=== PATIENT | male | born 1955 | race Caucasian/White ===

== ENCOUNTER 2020-10-02 22:29 | Emergency (ER) | payer OTHER, MEDICARE, SELFPAY ==
[2020-10-02 22:56] VITALS: BP 122/60; PULSE 59; RESP 24; TEMP 36.6; O2SAT 98
--- NOTE | 2020-10-02 23:25 | ED_ITS ---
HPI - Abdominal Pain General: Chief Complaint: Abdominal Pain Stated Complaint: ABDOMINAL PAIN Time Seen by Provider: 10/02/20 23:06 Source: patient Mode of arrival: ambulatory Limitations: no limitations History of Present Illness: HPI narrative: 64-year-old male states he did have abdominal pain of the last day. Patient states that the pain is sharp and worsened. He states he had difficulty urinating as well. Last time he urinated was this morning. He states his pain is current a 9 out of 10. He denies any worsening improving factors. Denies any fevers. Denies any vomiting or diarrhea. Denies chest pain. Associated Symptoms: Denies chills and fever(s) Review of Systems Const: Denies: fever(s), chills, body aches or change in appetite Eyes: Denies: blurry vision or eye discomfort ENMT: Denies: throat pain or dental pain Card: Denies: chest pain Resp: Denies: dyspnea GI: Reports: abdominal pain : Reports: difficulty urinating Musc: Denies: neck pain or back pain Skin/Breast: Denies: rash Neuro: Denies: headache(s) Psych: Denies: depression Jaime/Lymph: Denies: easy bruising All/Imm: Denies: urticaria Physical Exam Const: COMMON NORMALS: no acute distress, patient oriented x3 and healthy appearing HENMT: COMMON NORMALS: normocephalic and atraumatic HEAD & SCALP: normocephalic and atraumatic Eye: COMMON NORMALS: Equal, round and reactive pupils present and EOMs intact bilaterally PUPIL: Yes Equal, round and reactive pupils present Neck/C-Spine: COMMON NORMALS: full ROM and supple Chest: COMMONS NORMALS: normal inspection of the chest and normal palpation of entire chest wall Resp: COMMON NORMALS: normal respiratory effort, No retractions, No use of accessory muscles and clear to auscultation bilaterally AUSCULTATION: clear to auscultation bilaterally Cardio: COMMON NORMALS: regular rate, regular rhythm and No murmurs present (Cardio) RATE: regular rate RHYTHM: regular rhythm GI: COMMON NORMALS: Normal to inspection, nondistended, normoactive bowel sounds present, Soft to palpation and no masses PALPATION: Yes Soft to palpation OTHER: lower abdominal tenderness Extremity: COMMON NORMALS: normal to inspection and full ROM Neuro: COMMON NORMALS: patient oriented x3, moves all extremities and no focal motor deficits Psych: COMMON NORMALS: mental status grossly normal, Normal thought process present and cooperative THOUGHT PROCESS: Normal thought process present Skin: COMMON NORMALS: no rashes or lesions noted and no wounds GENERAL SKIN EXAM: no rashes or lesions noted Course Vital Signs: Vital signs: Vital Signs Temperature 97.9 F 10/02/20 22:56 Pulse Rate 67 10/03/20 02:41 Respiratory Rate 18 10/03/20 02:41 Blood Pressure 145/80 10/03/20 02:41 Pulse Oximetry 99 10/03/20 02:41 MDM - Abdominal Pain MDM Narrative: Medical decision making narrative: Patient presents here with abdominal pain. Julian was placed and had 800 out he does have urinary retention. CT also showed some constipation and a colitis. Will start patient on antibiotics and leave Julian in place. We will have him follow-up with urology and surgery as he likely needs a colonoscopy in the future. He is to return to ER if worsening. He understands agrees to plan. Lab Data: Labs: Lab Results 10/03/20 10/03/20 10/03/20 Range/Units 00:00 00:00 Unknown WBC 8.1 (4.0-10.0) 10^3/ uL RBC 4.15 (4.1-5.3) 10^6/u L Hgb 12.7 (11.7-16.6) g/dL Hct 38.8 L (42.0-52.0) % MCV 93.5 (80-94) fL MCH 30.6 (28.0-34.0) pg MCHC 32.7 (30.0-36.0) g/dL RDW 14.6 (12.1-15.1) % Plt Count 63 L (130-400) 10^3/c mm MPV 11.8 H (7.4-10.4) fL Neut % (Auto) 75.9 % Lymph % (Auto) 10.6 % [place] % (Auto) 11.0 % Eos % (Auto) 1.7 % Baso % (Auto) 0.4 % Neut # (Auto) 6.16 (1.8-7.7) 10^3/u L Lymph # (Auto) 0.9 (0.8-4.8) 10^3/u L [place] # (Auto) 0.9 (0.2-0.9) 10^3/u L Eos # (Auto) 0.1 (0.0-0.8) 10^3/u L Baso # (Auto) 0.0 (0.0-0.1) 10^3/u L Nucleated RBC % (a uto) 0 % Nucleated RBCs # 0.0 /100WBC Sodium 137 (136-145) mmol/L Potassium 4.3 (3.5-5.1) mmol/L Chloride 105 (98-107) mmol/L Carbon Dioxide 24 (22-29) mmol/L Anion Gap 12.3 (5-19) BUN 25 H (8-23) mg/dL Creatinine 1.1 (0.7-1.2) mg/dL GFR Calculation 67.2 L (90-130) mL/min Glucose 101 (65-115) mg/dL Calculated Osmolal ity 289 (285-295) mOsm/k g Calcium 9.4 (8.5-10.5) mg/dL Total Bilirubin 0.4 (0.15-1.2) mg/dL AST 31 (0-40) U/L ALT 24 (0-41) U/L Alkaline Phosphata se 104 (40-130) IU/L Total Protein 6.7 (6.6-8.7) g/dL Albumin 3.9 (3.5-5.2) g/dL Globulin 2.8 (1.3-4.6) g/dL Lipase 24 (13-60) U/L Urine Color Yellow (Yellow) Urine Appearance Clear (CLEAR) Urine pH 5 (5-7) Ur Specific Gravit y 1.020 (1.005-1.030) Urine Protein Neg (Negative) Urine Glucose (UA) Norm (Normal) Urine Ketones Negative (Negative) Urine Blood Neg (Negative) Urine Nitrate Negative (Negative) Urine Bilirubin Neg (Negative) Urine Urobilinogen Norm (Negative) mg/dL Ur Leukocyte Jaclyn ase Negative (Negative) Imaging Data ^: CT Abd/Pel: Radiologist's impression: [address] [place] [address] CT Scan Report Signed Patient: Gee Dobson Unit #: [id number] : 1955 Age/Sex: 64 / M ADM Date: 10/02/20 Loc: ER Room/Bed: Attending Dr: Ordering Provider/Ordering MD: Angelica Medina MD Date of Service: 10/03/20 Procedure(s): CT abdomen pelvis w con* [id number] Accession Number(s): [id number] Report Number: [id number] PROCEDURE INFORMATION: Exam: CT Abdomen And Pelvis With Contrast Exam date and time: 10/03/2020 12:19 AM Age: 64 years old Clinical indication: Abdominal pain; Generalized; Prior surgery; Surgery type: Gb; Patient HX: Abd pain TECHNIQUE: Imaging protocol: Computed tomography of the abdomen and pelvis with contrast. Radiation optimization: All CT scans at this facility use at least one of these dose optimization techniques: automated exposure control; mA and/or kV adjustment per patient size (includes targeted exams where dose is matched to clinical indication); or iterative reconstruction. Contrast material: OMNI 300; Contrast volume: 95 ml; Contrast route: INTRAVENOUS (IV); COMPARISON: CR Abdomen Series Acute [id number] 04/13/2015 12:03 AM RADIATION DOSE METRICS: Total DLP (mGy-cm): 856.25 FINDINGS: Liver: There is a nodular contour of the liver compatible with cirrhosis. Gallbladder and bile ducts: Status post cholecystectomy. Pancreas: Normal. No ductal dilation. Spleen: The spleen is mildly prominent measuring 15.1 cm craniocaudal dimension. Adrenal glands: Normal. No mass. Kidneys and ureters: Normal. No hydronephrosis. Stomach and bowel: Moderate stool is present within the colon. There is prominent bowel wall thickening seen within the hepatic flexure of the colon. This could represent focal colitis. However a circumferential mural mass cannot be excluded. Appendix: No evidence of appendicitis. Intraperitoneal space: Unremarkable. No free air. No significant fluid collection. Vasculature: Unremarkable. No abdominal aortic aneurysm. Lymph nodes: Unremarkable. No enlarged lymph nodes. Urinary bladder: Unremarkable as visualized. Reproductive: Unremarkable as visualized. Bones/joints: Severe loss of disc height is seen at L5-S1 compatible with degenerative disc disease. Soft tissues: Unremarkable. CT/CT abdomen pelvis w con* [id number] IMPRESSION: 1. Focal prominent bowel wall thickening seen within the hepatic flexure of the colon, findings that could represent inflammatory changes and colitis although a mural mass cannot be excluded. 2. Moderate stool seen in the remainder of the colon. 3. Nodular profile of the liver compatible with cirrhosis. 4. Mild splenomegaly. Radiation Dose CTDIVOL = (mGy): DLP = 856.25 (mGy-cm) Dictated By: Devan More MD Signed By: Devan More MD Signed Date/Time: 10/03/20211 Discharge Plan Discharge Patient Disposition: Home Clinical Impression: Acute urinary retention, Colitis Condition: Stable Prescriptions: New hydrocodone-acetaminophen 5-325 mg tablet 1 tab PO Q6H PRN (Reason: pain) Qty: 14 RF: 0 ondansetron 4 mg tablet,disintegrating 4 mg PO Q6H PRN (Reason: nausea and vomiting) Qty: 14 RF: 0 Augmentin 875-125 mg tablet 1 tab PO BID Qty: 14 RF: 0 Miralax 17 gram/dose powder 17 g PO DAILY PRN (Reason: constipation) Qty: 119 RF: 0 Discharge Orders: Discharge ED (Routine); Ordered 10/03/20 Ordered By: Angelica Medina Referrals: Lokesh Jimenez, CIRCUIT DESIGN ENGINEER-C [Primary Care Provider] - Ho Montalvo MD [Physician] - 1-3 days Lupillo Olivares MD [Physician] - 1-3 days Discharge Diet: Advance as tolerated Discharge Activity: Resume usual activity Patient Instructions: Urinary Retention in Men (ED), Infectious Colitis (ED), Opioid Safety Coding Level of Care Code ED Cardiac Catheterization Technologist for Chg Fwd Exam Comprehensive
[2020-10-03 00:19] LABS: Basophils % 0.4 %; Eosinophils # 0.1 10^3/uL (0.0-0.8); Eosinophils % 1.7 %; Hematocrit 38.8 % (42.0-52.0); Hemoglobin 12.7 g/dL (11.7-16.6); Lymphocytes # 0.9 10^3/uL (0.8-4.8); Lymphocytes % 10.6 %; Mean Corpuscular HGB Conc 32.7 g/dL (30.0-36.0); Mean Corpuscular Hemoglobin 30.6 pg (28.0-34.0); Mean Corpuscular Volume 93.5 fL (80-94); Mean Platelet Volume 11.8 fL (7.4-10.4); Monocytes # 0.9 10^3/uL (0.2-0.9); Neutrophils # 6.16 10^3/uL (1.8-7.7); Neutrophils % 75.9 %; Nucleated Red Blood Cells % 0 %; Platelet Count 63 10^3/cmm (130-400); Red Blood Count 4.15 10^6/uL (4.1-5.3); Red Cell Distribution Width 14.6 % (12.1-15.1); White Blood Count 8.1 10^3/uL (4.0-10.0)
--- NOTE | 2020-10-03 00:19 | CTR_ITS ---
PROCEDURE INFORMATION: Exam: CT Abdomen And Pelvis With Contrast Exam date and time: 10/03/2020 12:19 AM Age: 64 years old Clinical indication: Abdominal pain; Generalized; Prior surgery; Surgery type: Gb; Patient HX: Abd pain TECHNIQUE: Imaging protocol: Computed tomography of the abdomen and pelvis with contrast. Radiation optimization: All CT scans at this facility use at least one of these dose optimization techniques: automated exposure control; mA and/or kV adjustment per patient size (includes targeted exams where dose is matched to clinical indication); or iterative reconstruction. Contrast material: OMNI 300; Contrast volume: 95 ml; Contrast route: INTRAVENOUS (IV); COMPARISON: CR Abdomen Series Acute [id number] 04/13/2015 12:03 AM RADIATION DOSE METRICS: Total DLP (mGy-cm): 856.25 FINDINGS: Liver: There is a nodular contour of the liver compatible with cirrhosis. Gallbladder and bile ducts: Status post cholecystectomy. Pancreas: Normal. No ductal dilation. Spleen: The spleen is mildly prominent measuring 15.1 cm craniocaudal dimension. Adrenal glands: Normal. No mass. Kidneys and ureters: Normal. No hydronephrosis. Stomach and bowel: Moderate stool is present within the colon. There is prominent bowel wall thickening seen within the hepatic flexure of the colon. This could represent focal colitis. However a circumferential mural mass cannot be excluded. Appendix: No evidence of appendicitis. Intraperitoneal space: Unremarkable. No free air. No significant fluid collection. Vasculature: Unremarkable. No abdominal aortic aneurysm. Lymph nodes: Unremarkable. No enlarged lymph nodes. Urinary bladder: Unremarkable as visualized. Reproductive: Unremarkable as visualized. Bones/joints: Severe loss of disc height is seen at L5-S1 compatible with degenerative disc disease. Soft tissues: Unremarkable. CT/CT abdomen pelvis w con* [id number] IMPRESSION: 1. Focal prominent bowel wall thickening seen within the hepatic flexure of the colon, findings that could represent inflammatory changes and colitis although a mural mass cannot be excluded. 2. Moderate stool seen in the remainder of the colon. 3. Nodular profile of the liver compatible with cirrhosis. 4. Mild splenomegaly. Radiation Dose CTDIVOL = (mGy): DLP = 856.25 (mGy-cm)
[2020-10-03 00:35] LABS: Alanine Aminotransferase 24 U/L (0-41); Albumin Level 3.9 g/dL (3.5-5.2); Alkaline Phosphatase 104 IU/L (40-130); Aspartate Amino Transferase 31 U/L (0-40); Blood Urea Nitrogen 25 mg/dL (8-23); Calcium 9.4 mg/dL (8.5-10.5); Carbon Dioxide 24 mmol/L (22-29); Chloride 105 mmol/L (98-107); Globulin 2.8 g/dL (1.3-4.6); Glomerular Filtration Rate 67.2 mL/min (90-130); Glucose 101 mg/dL (65-115); Lipase 24 U/L (13-60); Osmolality Calculated 289 mOsm/kg (285-295); Sodium 137 mmol/L (136-145); Total Bilirubin 0.4 mg/dL (0.15-1.2); Total Protein 6.7 g/dL (6.6-8.7)
[2020-10-03 00:39] LABS: Anion Gap 12.3 (5-19); Potassium 4.3 mmol/L (3.5-5.1)
[2020-10-03 00:46] LABS: Add Urine Microscopic? NO; Charge for UA Resulting for Rev
[2020-10-03] MEDS: iohexol 300 mg/mL 100 mL Btl IV (00:52)
[2020-10-03 00:57] VITALS: RESP 16; O2SAT 100
[2020-10-03] MEDS: morphine 4 mg/mL SDV 1 mL IVP (00:57)
[2020-10-03] MEDS: ondansetron 2 mg/ML SDV 2 mL 4 MG IVP (00:59)
[2020-10-03 01:03] VITALS: BP 152/119; PULSE 71; RESP 18; O2SAT 99
[2020-10-03 01:07] LABS: Bilirubin Urine Neg (Negative); Blood Urine Neg (Negative); Glucose Urine UA Norm (Normal); Ketones Urine Negative (Negative); Leukocyte Esterase Urine Negative (Negative); Nitrate Urine Negative (Negative); Protein Urine Neg (Negative); Urine Appearance Clear (CLEAR); Urine Color Yellow (Yellow); Urobilinogen Urine Norm (Negative); pH Urine 5 (5-7)
[2020-10-03 02:23] VITALS: BP 145/80; PULSE 65; O2SAT 99
[2020-10-03 02:41] VITALS: BP 145/80; PULSE 67; RESP 18; O2SAT 99
--- NOTE | 2020-10-05 10:59 | DCPLANNER ---
Addendum entered by Amber Hernandez 10/05/20 11:26: senior sales manager sent patients information to June with [facility] so that the authorization process could be started. Original Note: senior sales manager had message to schedule a follow up appointment for patient with Dr. Olivares for a colonoscopy. senior sales manager emailed patients information to both Jinny and Laisha at [facility] General Surgery. Patients information will be printed and reviewed. Clinic will call patient with appointment information.
--- NOTE | 2020-10-05 11:29 | DCPLANNER ---
manager of investigations had message to schedule a follow up appointment for patient with Dr. Montalvo for urinary retention. manager of investigations called the office of Dr. Montalvo, spoke with Amy, gave clinic patients information. manager of investigations was told that patients information would be printed and reviewed. Clinic will call patient with appointment information.
--- NOTE | 2020-10-06 13:27 | DCPLANNER ---
Patient has a follow up appointment scheduled for Monday, October 19, 2020 at 11:[address] Montalvo. Clinic will call patient with appointment information.
--- NOTE | 2020-10-09 14:20 | DCPLANNER ---
Patient has a follow up appointment scheduled for Tuesday, November 03, 2020 at 9:[address] Olivaers at [facility] General Surgery. Clinic will call patient with appointment information.
--- NOTE | 2020-10-22 08:24 | DCPLANNER ---
Patient had a follow up appointment scheduled for 10.19.[address] long - patient did attend appointment.
--- NOTE | 2020-11-13 12:47 | DCPLANNER ---
late entry - patient had a follow up appointment scheduled with general surgery - was rescheduled.
== END 2020-10-03 02:58 | disposition home or self-care (01) ==
PROVIDERS: Emergency Provider Emergency Medicine; PCP Nurse Practitioner
DX: K52.9 Noninfective gastroenteritis and colitis, unspecified (principal); R33.9 Retention of urine, unspecified
CPT/HCPCS: 51702; 74177; 80053; 81003; 83690; 85025; 96374; 96375; 99284; J2270; J2405; Q9967

== ENCOUNTER 2021-02-12 09:59 | Emergency (ER) | payer OTHER, MEDICARE, SELFPAY ==
[2021-02-12 10:48] VITALS: BP 137/74; PULSE 74; RESP 18; TEMP 36.4; O2SAT 98; BMI 23.6
--- NOTE | 2021-02-12 11:12 | CT_ITS ---
WS: [id number] CT ABDOMEN AND PELVIS WITH CONTRAST HISTORY: abdominal pain TECHNIQUE: Imaging performed of the abdomen and pelvis with IV contrast. Single phase imaging of the abdomen. Coronal and sagittal reformats are submitted. All CT scans at [facility] use at [address] one of these dose optimization techniques: automated exposure control; mA and/or kV adjustment per patient size (includes targeted exams where dose is matched to clinical indication); or iterative re construction. IV CONTRAST: Omnipaque 300; 95 mL IV. Oral contrast: No DLP: 1131.0 mGy.cm COMPARISON: 11/18/2020, 10/03/2020 Lower thorax: New small RIGHT pleural effusion since 11/18/2020. Heart is normal size. Moderate size h iatal hernia. Liver/biliary system: Enlarged caudate lobe. Surface of the liver is significantly irregular and lobu lar from cirrhosis. No enhancing masses or nodules. Portal vein is patent. Incomplete opacification o f the superior mesenteric vein is probably due to injection rate. Gallbladder: Status post cholecystectomy. Pancreas: Normal size pancreas and pancreatic duct. No adjacent inflammation. Spleen: Moderately enlarged spleen measures 15.5 cm in length. Similar to the prior study. Adrenal glands: Normal. Right kidney: Normal. Left kidney: Normal. Aorta: Mild atherosclerosis with no aneurysm. Lymphadenopathy: Small mesenteric and retroperitoneal lymph nodes. Free fluid: New mesenteric edema. There is also free fluid in the mesentery and in the pelvis. Small pockets of free fluid around the stomach and in the central mesentery extending along the paracolic g utters and in the pelvis. No free air is identified. GI tract: Moderate fecal retention. No obstruction. There is mild bowel wall thickening involving the proximal small bowel. Abdominal wall: Unremarkable abdominal wall. No hernia. Pelvis: Well-distended urinary bladder. Small amount of free fluid in the pelvis. Small inguinal lymp h nodes. Bones: Osteopenia. Disc space narrowing and desiccation at L5-S1. CT/CT abdomen pelvis w con* [id number] IMPRESSION: 1. Interval development of a small RIGHT pleural effusion with mesenteric estefani a and a small amount of free fluid in the abdomen and pelvis. 2. Moderate cirrhosis with an enlarged spleen. 3. Prior cholecystectomy. 4. Moderate constipation. 5. Proximal most small bowel wall thickening can be seen with cirrhosis and ed cuco. Consider gastroenteritis also as a possible etiology.
[2021-02-12 11:45] VITALS: BP 131/75; PULSE 75; RESP 14
[2021-02-12 11:47] LABS: Basophils % 0.6 %; Eosinophils # 0.3 10^3/uL (0.0-0.8); Eosinophils % 4.9 %; Hematocrit 38.9 % (42.0-52.0); Hemoglobin 12.8 g/dL (11.7-16.6); Lymphocytes # 0.7 10^3/uL (0.8-4.8); Lymphocytes % 12.2 %; Mean Corpuscular HGB Conc 32.9 g/dL (30.0-36.0); Mean Corpuscular Hemoglobin 31.1 pg (28.0-34.0); Mean Corpuscular Volume 94.6 fl (80-94); Mean Platelet Volume 9.9 fL (7.4-10.4); Monocytes # 0.6 10^3/uL (0.2-0.9); Monocytes % 11.7 %; Neutrophils # 3.73 10^3/uL (1.8-7.7); Nucleated Red Blood Cells % 0 %; Platelet Count 59 10^3/cmm (130-400); Red Blood Count 4.11 10^6/uL (4.1-5.3); Red Cell Distribution Width 15.8 % (12.1-15.1); White Blood Count 5.3 10^3/uL (4.0-10.0)
--- NOTE | 2021-02-12 12:03 | ED_ITS ---
HPI - Abdominal Pain General: Chief Complaint: Abdominal Pain Stated Complaint: Abdominal Pain, Swelling in Feet Time Seen by Provider: 02/12/21 11:10 History of Present Illness: HPI narrative: Patient is a 65-year-old male with a past medical history of abdominal hernia liver cirrhosis hep C status post treatment and meth amphetamine use disorder. He is here with abdominal pain. It is difficult to get a specific history and why he is here today but it seems to center on the fact that he has lower central abdominal pain. Does not radiate has not had any nausea or vomiting he does alternate between constipation and diarrhea but lately his stools have been soft and formed not runny and not hard. States that he is passing urine but seems to be less than normal. He was seen earlier for urinary retention had a Julian catheter placed and is under the care of a local urologist. Denies fevers chills chest pains nausea vomiting altered mental status shortness of breath syncope. Does states he has been having some sharp pains in his right scientology. Does have chronic headaches Review of Systems General: Reports: 10 or more systems reviewed and unremarkable except in HPI and below PFSH ED PFSH: Medical History Acute urinary retention Family History Father CAD (coronary artery disease) Social History Alcohol intake: never Marital status: Current occupational status: disabled History of recent travel: No Physical Exam Const: COMMON NORMALS: no acute distress, average body habitus, patient oriented x3, no limitations, healthy appearing and well nourished EXAM LIMITATIONS: no altered mental status and no behavioral limitations HENMT: COMMON NORMALS: normocephalic, atraumatic and hearing grossly normal bilaterally HEAD & SCALP: normocephalic and atraumatic Eye: COMMON NORMALS: Equal, round and reactive pupils present, EOMs intact bilaterally, conjunctivae normal and no scleral icterus CONJUNCTIVA: Yes conjunctivae normal PUPIL: Yes Equal, round and reactive pupils present Neck/C-Spine: COMMON NORMALS: no JVD Resp: COMMON NORMALS: normal respiratory effort, No retractions, No use of accessory muscles, clear to auscultation bilaterally and percussion normal AUSCULTATION: clear to auscultation bilaterally PERCUSSION: percussion normal Cardio: COMMON NORMALS: no JVD, regular rate, regular rhythm, S1 normal heart sound present, S2 normal heart sound present, No clicks present (Cardio) and No murmurs present (Cardio) RATE: regular rate RHYTHM: regular rhythm HEART SOUNDS: S1 normal heart sound present and S2 normal heart sound present GI: COMMON NORMALS: Normal to inspection, nondistended, normoactive bowel sounds present, Soft to palpation, No hepatosplenomegaly present and no masses; negative for non-tender INSPECTION: No normal to inspection, No Abdominal wall edema, No Anasarca and Yes abdominal distension AUSCULTATION: Yes normoactive bowel sounds PALPATION: Yes Soft to palpation, Yes Tenderness to palpation present (GI) (Mildly tender to palpation periumbilical and suprapubic) and Yes No hepatosplenomegaly present PERCUSSION: normal to percussion Extremity: COMMON NORMALS: normal to inspection, full ROM and capillary refill normal Neuro: DANIE COMA SCALE: document GCS findings Danie coma scale eye opening: Spontaneous Danie coma scale verbal response: Orientated [place] coma scale motor response: Obey commands Danie coma scale total score: 15 COMMON NORMALS: patient oriented x3 and CN's II-XII intact bilaterally Psych: COMMON NORMALS: mental status grossly normal and Normal thought process present THOUGHT PROCESS: Normal thought process present Skin: COMMON NORMALS: no rashes or lesions noted, no wounds and turgor normal GENERAL SKIN EXAM: no rashes or lesions noted and turgor normal Course ED course: Bladder scan showed he is had a residual 250. Has not urinated since early this morning this may be the cause of his discomfort but will go ahead and finish stressors work-up. If nothing else is found may go ahead and place a Julian and have him follow-up with his urologist. Patient CT showed a very small basilar pleural effusion and some fluid in small bowel most likely either mild gastritis or some ascites. Patient feels better after urinating. His labs are essentially normal. Feel there is any need for any additional work-up hospitalization or consultation at this time. Will discharge and have him follow-up with his primary care provider and urologist and return with any worsening symptoms Vital Signs: Vital signs: Vital Signs Temperature 97.6 F 02/12/21 10:48 Pulse Rate 75 02/12/21 11:45 Respiratory Rate 14 02/12/21 11:45 Blood Pressure 131/75 02/12/21 11:45 Pulse Oximetry 98 02/12/21 10:48 MDM - Abdominal Pain MDM Narrative: Medical decision making narrative: Patient is a 65-year-old male here with abdominal pain. Differential includes urinary retention, hernia, sepsis, ascites Patient is well-appearing no signs or symptoms of sepsis. Infection vital signs are normal does not need need immediate resuscitation antibiotics or airway management. Limited bedside ultrasound does not show any ascites and he had normal bowel sounds. We will get a bladder scan to see if he is retaining urine CT scan of the abdomen pelvis as well as basic labs on him. Lab Data: Labs: Lab Results 02/12/21 02/12/21 02/12/21 11:35 11:35 11:35 WBC 5.3 10^3/uL 10^3/ uL (4.0-10.0) RBC 4.11 10^6/uL 10^6 /uL (4.1-5.3) Hgb 12.8 g/dL g/dL (11.7-16.6) Hct 38.9 % L % (42.0-52.0) MCV 94.6 fl H fl (80-94) MCH 31.1 pg pg (28.0-34.0) MCHC 32.9 g/dL g/dL (30.0-36.0) RDW 15.8 % H % (12.1-15.1) Plt Count 59 10^3/cmm L 10^ 3/cmm (130-400) MPV 9.9 fL fL (7.4-10.4) Neut % (Auto) 70.0 % % Lymph % (Auto) 12.2 % % [place]ander % (Auto) 11.7 % % Eos % (Auto) 4.9 % % Baso % (Auto) 0.6 % % Neut # (Auto) 3.73 10^3/uL 10^3 /uL (1.8-7.7) Lymph # (Auto) 0.7 10^3/uL L 10^ 3/uL (0.8-4.8) Lander # (Auto) 0.6 10^3/uL 10^3/ uL (0.2-0.9) Eos # (Auto) 0.3 10^3/uL 10^3/ uL (0.0-0.8) Baso # (Auto) 0.0 10^3/uL 10^3/ uL (0.0-0.1) Nucleated RBC % (a uto) 0 % % Nucleated RBCs # 0.0 /100WBC /100W BC Sodium 137 mmol/L mmol/L (136-145) Potassium 4.3 mmol/L mmol/L (3.5-5.1) Chloride 102 mmol/L mmol/L (98-107) Carbon Dioxide 23 mmol/L mmol/L (22-29) Anion Gap 16.3 (5-19) BUN 17 mg/dL mg/dL (8-23) Creatinine 1.1 mg/dL mg/dL (0.7-1.2) GFR Calculation 67.0 mL/min L mL/ min (90-130) Glucose 80 mg/dL mg/dL (65-115) Calculated Osmolal ity 285 mOsm/kg mOsm/ kg (285-295) Lactate 0.7 mmol/L mmol/L (0.5-2.2) Calcium 8.8 mg/dL mg/dL (8.5-10.5) Magnesium 1.9 mg/dL mg/dL (1.7-2.3) Total Bilirubin 0.9 mg/dL mg/dL (0.15-1.2) AST 31 U/L U/L (0-40) ALT 21 U/L U/L (0-41) Alkaline Phosphata se 99 IU/L IU/L (40-130) Total Protein 7.5 g/dL g/dL (6.6-8.7) Albumin 4.0 g/dL g/dL (3.5-5.2) Globulin 3.5 g/dL g/dL (1.3-4.6) Lipase 25 U/L U/L (13-60) Discharge Plan Discharge Prescriptions: No Action gabapentin 300 mg capsule 600 - 900 mg PO BID RF: 0 Artificial Tears (cmc) 1 % drops 1 drp ophthalmic (eye) QID PRN (Reason: Dry Eye(S)) RF: 0 ferrous sulfate 325 mg (65 mg iron) tablet 325 mg PO DAILY PRN (Reason: unknown) RF: 0 furosemide 20 mg tablet 20 mg PO DAILY PRN (Reason: Edema) RF: 0 potassium chloride 20 mEq tablet extended release 20 meq PO DAILY RF: 0 Metamucil 3.4 gram/5.4 gram powder 1 tsp PO DAILY PRN (Reason: unknown) RF: 0 albuterol sulfate 90 mcg/actuation HFA aerosol inhaler 2 puff inhalation Q4H PRN (Reason: Shortness Of Breath) RF: 0 pantoprazole 40 mg tablet,delayed release (DR/EC) 40 mg PO QPM RF: 0 multivitamin Tablet 1 tab PO DAILY RF: 0 sildenafil 100 mg Tablet 100 mg PO PRN PRN (Reason: Erectile Dysfunction) RF: 0 trazodone 100 mg Tablet 50 mg PO BEDTIME PRN (Reason: Sleep) RF: 0 Colace 100 mg Capsule 100 mg PO BID PRN (Reason: Constipation) RF: 0 acyclovir 200 mg Capsule 200 mg PO DAILY RF: 0 Advair Diskus 100-50 mcg/dose Blister With Device 1 inh INHALATION BID RF: 0 testosterone cypionate 200 mg/mL Oil 200 mg IM Q14D RF: 0 Flonase 50 mcg/actuation [place],Suspension 1 - 2 spray INTRANASAL DAILY PRN (Reason: Allergy Symptoms) RF: 0 Vitamin D3 50 mcg (2,000 unit) Capsule 100 mcg PO PRN RF: 0 Spiriva Respimat 2.5 mcg/actuation Mist 2 puff INHALATION DAILY RF: 0 tamsulosin 0.4 mg capsule 0.4 mg PO BEDTIME RF: 0 Coding Level of Care Code ED Regional Production Manager for Chg Fwd Exam Comprehensive
[2021-02-12 12:04] LABS: Lactate (Lactic Acid level) 0.7 mmol/L (0.5-2.2)
[2021-02-12 12:10] LABS: Slide Review Slide Review Perform
--- NOTE | 2021-02-12 12:12 | PC.NURSE ---
Pts bladder scanned, 200mL noted on scan, Dr. Becerra advised. This RN noted pts lower abdomen to be hard on palpation and distended.
[2021-02-12 12:14] LABS: Alanine Aminotransferase 21 U/L (0-41); Alkaline Phosphatase 99 IU/L (40-130); Anion Gap 16.3 (5-19); Aspartate Amino Transferase 31 U/L (0-40); Blood Urea Nitrogen 17 mg/dL (8-23); Calcium 8.8 mg/dL (8.5-10.5); Carbon Dioxide 23 mmol/L (22-29); Chloride 102 mmol/L (98-107); Globulin 3.5 g/dL (1.3-4.6); Glucose 80 mg/dL (65-115); Lipase 25 U/L (13-60); Magnesium 1.9 mg/dL (1.7-2.3); Osmolality Calculated 285 mOsm/kg (285-295); Potassium 4.3 mmol/L (3.5-5.1); Sodium 137 mmol/L (136-145); Total Bilirubin 0.9 mg/dL (0.15-1.2); Total Protein 7.5 g/dL (6.6-8.7)
[2021-02-12] MEDS: iohexol 300 mg/mL 100 mL Btl IV (12:30)
--- NOTE | 2021-02-12 13:13 | PC.PHAR ---
Addendum entered by Elsie Rodriguez 02/12/21 13:18: [facility] 2 tabs bid pt states he hasnt taken for a month or so Original Note: pt and pts family verified pts medications-[facility]
[2021-02-12 14:27] VITALS: BP 124/75; PULSE 70; RESP 19; O2SAT 98
== END 2021-02-12 14:30 | disposition home or self-care (01) ==
PROVIDERS: Emergency Provider Family Medicine
DX: R10.9 Unspecified abdominal pain (principal)
CPT/HCPCS: 74177; 80053; 83605; 83690; 83735; 85025; 99283; Q9967

== ENCOUNTER 2021-03-09 20:13 | Inpatient (IN) | payer OTHER, MEDICARE, SELFPAY ==
[2021-03-09 20:37] VITALS: BP 137/75; PULSE 86; RESP 18; TEMP 37.1; O2SAT 99; BMI 22.9
[2021-03-09 21:00] LABS: Basophils % 0.8 %; Eosinophils # 0.3 10^3/uL (0.0-0.8); Eosinophils % 5.7 %; Hematocrit 30.5 % (42.0-52.0); Hemoglobin 10.1 g/dL (11.7-16.6); Mean Corpuscular HGB Conc 33.1 g/dL (30.0-36.0); Mean Corpuscular Hemoglobin 31.3 pg (28.0-34.0); Mean Corpuscular Volume 94.4 fl (80-94); Mean Platelet Volume 10.4 fL (7.4-10.4); Monocytes # 0.5 10^3/uL (0.2-0.9); Monocytes % 9.5 %; Neutrophils # 3.24 10^3/uL (1.8-7.7); Nucleated Red Blood Cells % 0 %; Platelet Count 68 10^3/cmm (130-400); Red Blood Count 3.23 10^6/uL (4.1-5.3); Red Cell Distribution Width 14.6 % (12.1-15.1); White Blood Count 5.1 10^3/uL (4.0-10.0)
[2021-03-09 22:14] VITALS: BP 127/72; PULSE 91; RESP 20; O2SAT 93
[2021-03-09 22:18] LABS: Alanine Aminotransferase 15 U/L (0-41); Albumin Level 3.5 g/dL (3.5-5.2); Alkaline Phosphatase 73 IU/L (40-130); Anion Gap 18.2 (5-19); Aspartate Amino Transferase 22 U/L (0-40); Blood Urea Nitrogen 38 mg/dL (8-23); Calcium 8.4 mg/dL (8.5-10.5); Carbon Dioxide 19 mmol/L (22-29); Chloride 107 mmol/L (98-107); Globulin 2.2 g/dL (1.3-4.6); Glucose 95 mg/dL (65-115); Lipase 28 U/L (13-60); Osmolality Calculated 299 mOsm/kg (285-295); Potassium 4.2 mmol/L (3.5-5.1); Sodium 140 mmol/L (136-145); Total Bilirubin 0.3 mg/dL (0.15-1.2); Total Protein 5.7 g/dL (6.6-8.7)
[2021-03-09 22:43] LABS: INR 1.23 (0.8-1.2)
--- NOTE | 2021-03-09 23:35 | ED_ITS ---
HPI - GI Bleed General: Chief complaint: GI Bleed Stated complaint: possible internal bleeding Time Seen by Provider: 03/09/21 22:15 Source: patient Mode of arrival: ambulatory History of Present Illness: HPI Narrative: 65-year-old male who states that he has a history of upper GI bleed along with cirrhosis and varices. He states that over the last day has been having some dark tarry stools that he believes is blood in nature. He states that he has some slight weakness blood pressure here is normal denies any near syncopal or syncopal patient blood thinners denies any worsening improving factors. Associated symptoms: Denies chills, easy bruising, fever(s), headache(s) or rash Review of Systems Const: Denies: fever(s), chills, body aches or change in appetite Eyes: Denies: blurry vision or eye discomfort ENMT: Denies: throat pain or dental pain Card: Denies: chest pain Resp: Denies: dyspnea GI: Reports: hematochezia and melena : Denies: dysuria Musc: Denies: neck pain or back pain Skin/Breast: Denies: rash Neuro: Denies: headache(s) Psych: Denies: depression Jaime/Lymph: Denies: easy bruising All/Imm: Denies: urticaria PFSH ED PFSH: Medical History Acute urinary retention Family History Father CAD (coronary artery disease) Social History Alcohol intake: never Marital status: Current occupational status: disabled History of recent travel: No Physical Exam Const: COMMON NORMALS: no acute distress, patient oriented x3 and healthy appearing HENMT: COMMON NORMALS: normocephalic and atraumatic HEAD & SCALP: normocephalic and atraumatic Eye: COMMON NORMALS: Equal, round and reactive pupils present and EOMs intact bilaterally PUPIL: Yes Equal, round and reactive pupils present Neck/C-Spine: COMMON NORMALS: full ROM and supple Chest: COMMONS NORMALS: normal inspection of the chest and normal palpation of entire chest wall Resp: COMMON NORMALS: normal respiratory effort, No retractions, No use of accessory muscles and clear to auscultation bilaterally AUSCULTATION: clear to auscultation bilaterally Cardio: COMMON NORMALS: regular rate, regular rhythm and No murmurs present (Cardio) RATE: regular rate RHYTHM: regular rhythm GI: COMMON NORMALS: Normal to inspection, nondistended, normoactive bowel so unds present, Soft to palpation, non-tender and no masses PALPATION: Yes Soft to palpation OTHER: Dark stool on rectal exam that is Hemoccult positive Extremity: COMMON NORMALS: normal to inspection and full ROM Neuro: COMMON NORMALS: patient oriented x3, moves all extremities and no focal motor deficits Psych: COMMON NORMALS: mental status grossly normal, Normal thought process present and cooperative THOUGHT PROCESS: Normal thought process present Skin: COMMON NORMALS: no rashes or lesions noted and no wounds GENERAL SKIN EXAM: no rashes or lesions noted Course Vital Signs: Vital signs: Vital Signs Temperature 98.7 F 03/09/21 20:37 Pulse Rate 86 03/09/21 20:37 Respiratory Rate 18 03/09/21 20:37 Blood Pressure 137/75 03/09/21 20:37 Pulse Oximetry 99 03/09/21 20:37 MDM - GI Bleed MDM Narrative: Medical decision making narrative: Patient presents here with an upper GI bleed is no signs of a major variceal bleed patient is hemodynamically stable here hemoglobin is 10.1 did have some bloody stool on exam just amenable male spoke to hospitalist will admit here also spoke to Dr. Hebert who is consulted for GI. Lab Data: Labs: Lab Results 03/09/21 03/09/21 03/09/21 20:50 20:50 20:50 WBC 5.1 10^3/uL 10^3/ uL (4.0-10.0) RBC 3.23 10^6/uL L 10 ^6/uL (4.1-5.3) Hgb 10.1 g/dL L g/dL (11.7-16.6) Hct 30.5 % L % (42.0-52.0) MCV 94.4 fl H fl (80-94) MCH 31.3 pg pg (28.0-34.0) MCHC 33.1 g/dL g/dL (30.0-36.0) RDW 14.6 % % (12.1-15.1) Plt Count 68 10^3/cmm L 10^ 3/cmm (130-400) MPV 10.4 fL fL (7.4-10.4) Neut % (Auto) 64.0 % % Lymph % (Auto) 19.0 % % [place] % (Auto) 9.5 % % Eos % (Auto) 5.7 % % Baso % (Auto) 0.8 % % Neut # (Auto) 3.24 10^3/uL 10^3 /uL (1.8-7.7) Lymph # (Auto) 1.0 10^3/uL 10^3/ uL (0.8-4.8) [place] # (Auto) 0.5 10^3/uL 10^3/ uL (0.2-0.9) Eos # (Auto) 0.3 10^3/uL 10^3/ uL (0.0-0.8) Baso # (Auto) 0.0 10^3/uL 10^3/ uL (0.0-0.1) Nucleated RBC % (a uto) 0 % % Nucleated RBCs # 0.0 /100WBC /100W BC PT 15.90 SECONDS H S ECONDS (12.1-14.9) INR 1.23 H (0.8-1.2) Sodium 140 mmol/L mmol/L (136-145) Potassium 4.2 mmol/L mmol/L (3.5-5.1) Chloride 107 mmol/L mmol/L (98-107) Carbon Dioxide 19 mmol/L L mmol/ L (22-29) Anion Gap 18.2 (5-19) BUN 38 mg/dL H mg/dL (8-23) Creatinine 1.1 mg/dL mg/dL (0.7-1.2) GFR Calculation 67.0 mL/min L mL/ min (90-130) Glucose 95 mg/dL mg/dL (65-115) Calculated Osmolal ity 299 mOsm/kg H mOs m/kg (285-295) Calcium 8.4 mg/dL L mg/dL (8.5-10.5) Total Bilirubin 0.3 mg/dL mg/dL (0.15-1.2) AST 22 U/L U/L (0-40) ALT 15 U/L U/L (0-41) Alkaline Phosphata se 73 IU/L IU/L (40-130) Total Protein 5.7 g/dL L g/dL (6.6-8.7) Albumin 3.5 g/dL g/dL (3.5-5.2) Globulin 2.2 g/dL g/dL (1.3-4.6) Lipase 28 U/L U/L (13-60) Discharge Plan Discharge Prescriptions: No Action gabapentin 300 mg capsule 600 - 900 mg PO BID RF: 0 Artificial Tears (cmc) 1 % drops 1 drp ophthalmic (eye) QID PRN (Reason: Dry Eye(S)) RF: 0 ferrous sulfate 325 mg (65 mg iron) tablet 325 mg PO DAILY PRN (Reason: unknown) RF: 0 furosemide 20 mg tablet 20 mg PO DAILY PRN (Reason: Edema) RF: 0 potassium chloride 20 mEq tablet extended release 20 meq PO DAILY RF: 0 Metamucil 3.4 gram/5.4 gram powder 1 tsp PO DAILY PRN (Reason: unknown) RF: 0 albuterol sulfate 90 mcg/actuation HFA aerosol inhaler 2 puff inhalation Q4H PRN (Reason: Shortness Of Breath) RF: 0 pantoprazole 40 mg tablet,delayed release (DR/EC) 40 mg PO QPM RF: 0 multivitamin Tablet 1 tab PO DAILY RF: 0 sildenafil 100 mg Tablet 100 mg PO PRN PRN (Reason: Erectile Dysfunction) RF: 0 trazodone 100 mg Tablet 50 mg PO BEDTIME PRN (Reason: Sleep) RF: 0 Colace 100 mg Capsule 100 mg PO BID PRN (Reason: Constipation) RF: 0 acyclovir 200 mg Capsule 200 mg PO DAILY RF: 0 Advair Diskus 100-50 mcg/dose Blister With Device 1 inh INHALATION BID RF: 0 testosterone cypionate 200 mg/mL Oil 200 mg IM Q14D RF: 0 Flonase 50 mcg/actuation [place],Suspension 1 - 2 spray INTRANASAL DAILY PRN (Reason: Allergy Symptoms) RF: 0 Vitamin D3 50 mcg (2,000 unit) Capsule 100 mcg PO PRN RF: 0 Spiriva Respimat 2.5 mcg/actuation Mist 2 puff INHALATION DAILY RF: 0 tamsulosin 0.4 mg capsule 0.4 mg PO BEDTIME RF: 0 Coding Level of Care Code ED Transfill Technician for Chg Fwd Exam Comprehensive
[2021-03-10] VITALS (20 sets, daily range): BP systolic 84–122; BP diastolic 40–71; PULSE 57–85; RESP 16–19; TEMP 36.4–36.7; O2SAT 97–100; BMI 22.9
--- NOTE | 2021-03-10 00:25 | PC.NURSE ---
PT IS CURRENTLY ON PROBATION AND HAS AN ANKLE BRACELET ON. PLEASE CALL THIS NUMBER WHEN PT IS BEING DISCHARGED OR IF PT NEEDS THE ANKLE BRACELET TAKEN OFF FOR ANY REASON. [phone].
[2021-03-10] MEDS: pantoprazole 40 mg SDV 80 MG IVP (00:29)
[2021-03-10] MEDS: octreotide 100 mcg/mL SDV 50 MCG IVP (00:29)
--- NOTE | 2021-03-10 01:10 | XRR_ITS ---
PROCEDURE INFORMATION: Exam: XR Chest Exam date and time: 03/10/2021 1:10 AM Age: 65 years old Clinical indication: Shortness of breath; Additional info: Follow up pleural effusion on recent CT TECHNIQUE: Imaging protocol: XR of the chest. Views: 1 view. COMPARISON: CR Chest 1 [place] [id number] 07/12/2016 8:58 AM FINDINGS: Lungs: Unremarkable. No consolidation. Pleural spaces: Tiny right pleural effusion. Heart/Mediastinum: Unremarkable. No cardiomegaly. Bones/joints: Unremarkable. XR/XR chest 1V portable [id number] IMPRESSION: Tiny right pleural effusion.
[2021-03-10] MEDS: octreotide 500 MCG in sodium chloride 0.9% (100 ml) 100 ML 10.1 MCG IV ×2 (01:59→11:07)
[2021-03-10] MEDS: morphine 4 mg/mL SDV 1 mL 2 MG IVP (02:10)
[2021-03-10] MEDS: pantoprazole 40 mg SDV IVP (02:11)
[2021-03-10] MEDS: ipratropium-albuterol 3 mL Neb INHALATION ×4 (02:55→20:25)
[2021-03-10 05:28] LABS: Basophils % 0.4 %; Eosinophils # 0.3 10^3/uL (0.0-0.8); Eosinophils % 7.3 %; Hematocrit 26.4 % (42.0-52.0); Hemoglobin 8.7 g/dL (11.7-16.6); Lymphocytes % 21.4 %; Mean Corpuscular Hemoglobin 31.4 pg (28.0-34.0); Mean Corpuscular Volume 95.3 fl (80-94); Mean Platelet Volume 10.5 fL (7.4-10.4); Monocytes # 0.5 10^3/uL (0.2-0.9); Monocytes % 9.6 %; Neutrophils # 2.81 10^3/uL (1.8-7.7); Neutrophils % 60.2 %; Nucleated Red Blood Cells % 0 %; Platelet Count 55 10^3/cmm (130-400); Red Blood Count 2.77 10^6/uL (4.1-5.3); Red Cell Distribution Width 14.7 % (12.1-15.1); White Blood Count 4.7 10^3/uL (4.0-10.0)
[2021-03-10 05:48] LABS: Alanine Aminotransferase 13 U/L (0-41); Albumin Level 3.2 g/dL (3.5-5.2); Alkaline Phosphatase 57 IU/L (40-130); Anion Gap 15.4 (5-19); Aspartate Amino Transferase 20 U/L (0-40); Blood Urea Nitrogen 40 mg/dL (8-23); Calcium 7.6 mg/dL (8.5-10.5); Carbon Dioxide 20 mmol/L (22-29); Chloride 110 mmol/L (98-107); Creatinine Clr Calc Pharmacy 66.5563; Globulin 1.8 g/dL (1.3-4.6); Glucose 100 mg/dL (65-115); Osmolality Calculated 300 mOsm/kg (285-295); Potassium 5.4 mmol/L (3.5-5.1); Sodium 140 mmol/L (136-145); Total Bilirubin 0.3 mg/dL (0.15-1.2)
[2021-03-10 05:49] LABS: Ammonia 60 umol/L (16-60)
--- NOTE | 2021-03-10 06:40 | P.HP_ITS ---
Providers/Chief Complaint Admitting Physician: Kari Collier MD Primary Care Provider: [facility] Chief Complaint: possible internal bleeding History of Present Illness Gee Dobson is a 65 year old male with a past medical history of liver cirrhosis hep C status post treatment and amphetamine use disorder.Presents today with 2 day history of dark stools which are loose, tarry in appearance concerning for vero. No h/o hematemesis. Patient not currently on any ant icoagulation. Recent CT from 02/12 with irregular nodular liver surface from cirrhosis , enlarged spleen, free fluid in mesentery. Hb today at 10.1, drifted down from 12.8 on 02/12. Hemodynamically stable. Review of Systems General: Reports: 10 or more systems reviewed and unremarkable except in HPI and below Const: Denies: fever(s), chills or body aches Eyes: Denies: change in vision, blurry vision or photophobia ENMT: Reports: hoarseness; Denies: throat pain, enlarged tonsils, odynophagia or nasal congestion Card: Denies: chest pain, palpitations, irregular heart rhythm, edema, swelling of feet/ankles, lightheadedness, pre-syncope, dyspnea on exertion or orthopnea Resp: Denies: dyspnea, productive cough, non-productive cough, wheezing, stridor, pain on inspiration, change in phlegm color, hemoptysis or chest congestion GI: Denies: abdominal pain, nausea, vomiting, hematemesis, coffee ground emesis, dysphagia, heartburn, diarrhea, constipation, GI cramping, change in stool character, hematochezia or melena : Denies: flank pain, dysuria, urinary frequency, urinary urgency, urinary hesitancy or hematuria Musc: Denies: neck pain, back pain, extremity pain, joint swelling, joint warmth or deformity Neuro: Denies: headache(s), numbness in extremities, weakness in extremities, sensory changes, difficulty walking, frequent falls, dizziness, vertigo, behavi oral changes, Slurred speech present or seizure-like activity Psych: Denies: anxiety, depression, suicidal ideation or homicidal ideation Endo: Denies: polyuria, polydipsia, tired all the time, cold intolerance or hot flashes Jaime/Lymph: Denies: easy bruising or easy bleeding Medications/Allergies Home Medications Medication Instructions Recorded Confirmed Last Taken Type multivitamin 1 tab PO DAILY 10/19/20 02/12/21 Unknown History pantoprazole 40 mg tablet,delayed 40 mg PO QPM 10/19/20 02/12/21 02/11/21 History release albuterol sulfate 90 mcg/actuation 2 puff INHALATION Q4H PRN g 11/19/20 02/12/21 Unknown History aerosol inhaler carboxymethylcellulose sodium 1 % 1 drp OPHTHALMIC (EYE) QID PRN 11/19/20 02/12/21 Unknown History eye drops ferrous sulfate 325 mg (65 mg 325 mg PO DAILY PRN 11/19/20 02/12/21 Unknown History iron) tablet furosemide 20 mg tablet 20 mg PO DAILY PRN 11/19/20 02/12/21 Unknown History gabapentin 300 mg capsule 600 - 900 mg PO BID cap 11/19/20 02/12/21 02/11/21 History potassium chloride 20 mEq 20 meq PO DAILY 11/19/20 02/12/21 Unknown History tablet,extended release psyllium husk 3.4 gram/5.4 gram 1 tsp PO DAILY PRN 11/19/20 02/12/21 Unknown History oral powder acyclovir 200 mg PO DAILY 02/12/21 02/12/21 Unknown History cholecalciferol (vitamin D3) 100 mcg PO PRN 02/12/21 02/12/21 Unknown History [Vitamin D3] docusate sodium [Colace] 100 mg PO BID PRN 02/12/21 02/12/21 Unknown History fluticasone propion-salmeterol 1 inh INHALATION BID 02/12/21 02/12/21 Unknown History [Advair Diskus] fluticasone propionate [Flonase] 1 - 2 spray INTRANASAL DAILY PRN 02/12/21 02/12/21 Unknown History sildenafil 100 mg PO PRN PRN 02/12/21 02/12/21 Unknown History tamsulosin 0.4 mg PO BEDTIME 02/12/21 02/12/21 02/11/21 History testosterone cypionate 200 mg IM Q14D 02/12/21 02/12/21 02/04/21 History tiotropium bromide [Spiriva 2 puff INHALATION DAILY 02/12/21 02/12/21 Unknown History Respimat] trazodone 50 mg PO BEDTIME PRN 02/12/21 02/12/21 Unknown History Allergies Allergy/AdvReac Type Severity Reaction Status Date / Time No Known Allergies Allergy Verified 02/12/21 13:13 PFSH Acute PFSH: Medical History (Updated 03/10/21 @ 06:49 by Kari Collier MD) Acute urinary retention Anemia GI bleeding Hepatitis C Liver cirrhosis Surgical History (Updated 03/10/21 @ 06:49 by Kari Collier MD) History of back surgery Hx of cholecystectomy Family History Father CAD (coronary artery disease) Social History Alcohol intake: never Marital status: Current occupational status: disabled History of recent travel: No Vitals/I&O/Wt Last Vital Signs Temp 97.6 F 03/10/21 03:53 Pulse 85 03/10/21 03:53 Resp 17 03/10/21 03:53 BP 95/57 03/10/21 03:53 Pulse Ox 98 03/10/21 03:53 Weight last 48 hrs Weight 68.583 kg Weight 72.575 kg Weight 72.575 kg Physical Exam Narrative: EXAM NARRATIVE: General: No acute distress, AO x3 HEENT: PERRLA, pupils bilaterally equal and reactive, pallors not present Chest: Normal vesicular breath sounds, no added sounds, equal good air entry bilaterally CVS: S1-S2 regular, no murmurs, no tachycardia, no gallops, no rubs Abdomen: Soft, distended, non tender bowel sounds present Neuro: No focal deficits, no facial deformity, AO x3, power 5/5 in all limbs Extremities: ankle bracelet in place Data : 03/10/21 05:14 03/10/21 05:14 A&P Assessment and plan (1) GI bleeding: Patient with known liver cirrhosis p/w melanotic stool , likely upper GI bleeding from varices vs possible gastritis. received 80mg IVP of Protonix and 50mcg octreotide Start protonix drip 8mg/hr and octreotide infusion 50mcg/hr Ceftriaxone 1g iv q24h for SBP prophylaxis in possibly variceal GI bleeding Trend Hb with am labs, transfuse if less than 7g/dl Dr. Hebert consulted from ER NPO for likely UGIE Status: Acute (2) Anemia: Likely related to GI bleed check H& H with am labs, transfuse less than 7 Status: Acute Additional A&P Information h/o urinary retention: no current complaints in this regard. continue Flomax. Attestations Medical Necessity Statement*: anticipate >2midnight admission for evaluation and management of GI bleeding with falling heemoglobin, will need endoscopy, serial hemoglobin checks Coding Level of Care Code Acute Manufacturing Chief Engineer for [facility] Fwd Diagnoses GI bleeding K92.2 Anemia D64.9
--- NOTE | 2021-03-10 10:06 | PC.CHAP ---
Pastoral Care Encounter/Spiritual Assessment Type of Contact [] Declined business architect visit [] Patient/Family/Request visit [] Outpatient visit [] Follow-up visit [] Physician referral [] Code/Alert [x] Routine visit [] Staff referral [] Actively dying [] Patient sleeping [] Family support [] [] Out of room [] Palliative care [] [] Receiving care in room [] Pre-surgical visit [] Trauma [] Long length of stay [] ICU visit [] Other: Relational/Emotional Strength [x] Patient feels connected with others/family/visitors/staff [] Distress [] Loneliness/isolation [] Abandonment Spirituality of Patient [x] Person of Dalila [x] Attends Protestant of their Dalila [x] Believes in Prayer [x] Reads Bible or Jehovah'S Witness materials [] There are Spiritual issues to be addressed Baseball Hand Sewer Interventions [x] Prayer [x] Active listening [x] Non-anxious presence [x] Spiritual/emotional support [] Crisis/trauma care [] Spiritual counseling [] Bereavement support [] Provided bereavement packet [] Provided Bible/devotional materials [] Provided toy/stuffed animal, coloring book to patient or family member [] Provided Communion [] Anointing/Cavalier [] Salvation [x] Completed spiritual assessment [] Other: Impact on Illness or Injury [] Angry [] Fearful [] Anxious [] Often cries [] Exhaustion [x] Unable to work [] Unable to attend christian [] Unable to walk/stand [] Unable to read [] Unable to drive [] Unable to eat/drink [] Unable to sleep [] Unable to be with family [] Patient intubated [] Other: Summary Time spent with patient 15 min
[2021-03-10] MEDS: cefTRIAXone 1,000 MG in sodium chloride 0.9% (plus) 50 ML 100 MG IV (10:23)
[2021-03-10] MEDS: pantoprazole 40 MG in sodium chloride 0.9% (plus) 100 ML 20 MG IV ×3 (10:23→21:15)
[2021-03-10] MEDS: midodrine 5 mg TABLET 10 MG PO ×2 (11:09→14:25)
[2021-03-10] MEDS: sodium chloride 0.9% 1,000 ML 100 ML IV ×2 (11:23→20:25)
--- NOTE | 2021-03-10 12:11 | PM.CONSULT ---
Providers/Reason For Consult Consulting Physician/Specialty*: Endoscopy Reason for Consult*: Likely upper GI bleed. Attending Physician: Dimas Khalil MD Primary Care Provider: [facility] History of Present Illness History of Present Illness Gee Dobson is a 65 year old male who has a history of moderate cirrhosis and hepatitis C. He claims that he has not drank any alcohol for many years. He presents to the emergency department with a 2-day history of melanotic stools. On initial evaluation he was noted to have a hemoglobin around 10 which has subsequently dropped to 8.7. On investigating his stool in the toilet it is black with some red tinge. He does not have much in the way of upper GI symptoms he has a little bit of abdominal pain. It is CT last month for abdominal pain which revealed inflammation of his small intestine. He had no venous congestion on that CT a month ago. He did have a little bit of splenomegaly and some mild to moderate cirrhosis. There is a questionable history of a variceal bleed in the past. Review of Systems General: Reports: 10 or more systems reviewed and unremarkable except in HPI and below Meds/Allergies Home Medications and Allergies Home Medications Medication Instructions Recorded Confirmed Last Taken Type multivitamin 1 tab PO DAILY 10/19/20 02/12/21 Unknown History pantoprazole 40 mg tablet,delayed 40 mg PO QPM 10/19/20 02/12/21 02/11/21 History release albuterol sulfate 90 mcg/actuation 2 puff INHALATION Q4H PRN g 11/19/20 02/12/21 Unknown History aerosol inhaler carboxymethylcellulose sodium 1 % 1 drp OPHTHALMIC (EYE) QID PRN 11/19/20 02/12/21 Unknown History eye drops ferrous sulfate 325 mg (65 mg 325 mg PO DAILY PRN 11/19/20 02/12/21 Unknown History iron) tablet furosemide 20 mg tablet 20 mg PO DAILY PRN 11/19/20 02/12/21 Unknown History gabapentin 300 mg capsule 600 - 900 mg PO BID cap 11/19/20 02/12/21 02/11/21 History potassium chloride 20 mEq 20 meq PO DAILY 11/19/20 02/12/21 Unknown History tablet,extended release psyllium husk 3.4 gram/5.4 gram 1 tsp PO DAILY PRN 11/19/20 02/12/21 Unknown History oral powder acyclovir 200 mg PO DAILY 02/12/21 02/12/21 Unknown History cholecalciferol (vitamin D3) 100 mcg PO PRN 02/12/21 02/12/21 Unknown History [Vitamin D3] docusate sodium [Colace] 100 mg PO BID PRN 02/12/21 02/12/21 Unknown History fluticasone propion-salmeterol 1 inh INHALATION BID 02/12/21 02/12/21 Unknown History [Advair Diskus] fluticasone propionate [Flonase] 1 - 2 spray INTRANASAL DAILY PRN 02/12/21 02/12/21 Unknown History sildenafil 100 mg PO PRN PRN 02/12/21 02/12/21 Unknown History tamsulosin 0.4 mg PO BEDTIME 02/12/21 02/12/21 02/11/21 History testosterone cypionate 200 mg IM Q14D 02/12/21 02/12/21 02/04/21 History tiotropium bromide [Spiriva 2 puff INHALATION DAILY 02/12/21 02/12/21 Unknown History Respimat] trazodone 50 mg PO BEDTIME PRN 02/12/21 02/12/21 Unknown History Allergies Allergy/AdvReac Type Severity Reaction Status Date / Time No Known Allergies Allergy Verified 02/12/21 13:13 Current Medications Current Medications Generic Name Dose Route Start Last Admin Trade Name Freq PRN Reason Stop Dose Admin Albuterol/Ipratropium 3 ml 03/10/21 03:00 03/10/21 08:07 Ipratropium-Albuterol 3 Ml Neb INHALATION 3 ml Q6H.RESPIRATORY YANNI Administration Octreotide Acetate 500 mcg/ 101 mls @ 10.1 mls/hr 03/10/21 01:15 03/10/21 11:07 Sodium Chloride IV 50 mcg/hr .Q10H YANNI 10.1 mls/hr Administration 50 MCG/HR Ceftriaxone Sodium 1,000 mg/ 50 mls @ 100 mls/hr 03/10/21 07:00 03/10/21 10:56 Sodium Chloride IV Infused Q24H YANNI Infusion Protocol Pantoprazole Sodium 40 mg/ 100 mls @ 20 mls/hr 03/10/21 07:00 03/10/21 10:23 Sodium Chloride IV 8 mg/hr .Q5H YANNI 20 mls/hr Administration 8 MG/HR Sodium Chloride 1,000 mls @ 100 mls/hr 03/10/21 10:45 03/10/21 11:23 Sodium Chloride 0.9% IV 100 mls/hr .Q10H YANNI Administration Midodrine 10 mg 03/10/21 10:42 03/10/21 11:09 Midodrine 5 Mg Tablet PO 10 mg TID YANNI Administration Morphine Sulfate 2 mg 03/10/21 01:10 03/10/21 02:10 Morphine 4 Mg/Ml Sdv 1 Ml IVP 2 mg Q4H PRN Administration SEVERE PAIN Sucralfate 1 gm 03/10/21 11:00 03/10/21 10:34 Sucralfate 1 Gm Tablet PO Not Given AC&BEDTIME YANNI PFSH Acute PFSH: Medical History (Updated 03/10/21 @ 06:49 by Kari Collier MD) Acute urinary retention Anemia GI bleeding Hepatitis C Liver cirrhosis Surgical History (Updated 03/10/21 @ 06:49 by Kari Collier MD) History of back surgery Hx of cholecystectomy Family History Father CAD (coronary artery disease) Social History Alcohol intake: never Marital status: Current occupational status: disabled History of recent travel: No Vitals/I&O/Wt Last Vital Signs Temp 97.7 F 03/10/21 11:23 Pulse 76 03/10/21 11:23 Resp 17 03/10/21 11:23 BP 91/49 03/10/21 11:23 Pulse Ox 97 03/10/21 11:23 03/09/21 03/10/21 03/10/21 22:59 06:59 14:59 Intake Total 142.247 / 142.247 Balance 142.247 / 142.247 Weight last 48 hrs Weight 151 lb 3.2 oz Weight 160 lb Weight 160 lb Physical Exam Const: COMMON NORMALS: no acute distress, alert and well nourished GENERAL APPEARANCE: cooperative, well kempt, well developed and well hydrated; does not appear older than stated age ORIENTATION/CONSCIOUSNESS: Yes oriented to person, Yes oriented to place and Yes oriented to time HENMT: COMMON NORMALS: normocephalic, external ears normal and TM's normal bilaterally HEAD & SCALP: normocephalic EXTERNAL EAR: Yes external ears normal TYMPANIC MEMBRANE: TM's normal bilaterally MOUTH: Normal oral and palatal mucosa present Eye: COMMON NORMALS: Equal, round and reactive pupils present GENERAL EYE: appearance normal, both eyes and all related structures and normal light reflex VISUAL ACUITY: Yes acuity normal PUPIL: Yes Equal, round and reactive pupils present DIRECT OPHTHALMOSCOPY: Yes normal light reflex Neck/C-Spine: COMMON NORMALS: full ROM, no lymphadenopathy, supple, no JVD, Thyroid normal and No carotid bruits GENERAL: Yes trachea midline THYROID: Thyroid normal, no masses and nontender Lymph: LYMPHATIC: no lymphadenopathy noted Chest: CHEST: Yes Symmetrical chest wall rise Resp: COMMON NORMALS: normal respiratory effort and clear to auscultation bilaterally AUSCULTATION: clear to auscultation bilaterally Cardio: COMMON NORMALS: no JVD, regular rhythm and No murmurs present (Cardio) PALPATION: normal PMI RHYTHM: regular rhythm GI: COMMON NORMALS: non-tender, no masses and no bruits INSPECTION: Yes normal to inspection, No scar and No striae AUSCULTATION: Yes normoactive bowel sounds PALPATION: No Guarding due to palpation present (GI), No Rigid due to palpation, No Hernia present and No Rebound tenderness present PERCUSSION: normal to percussion RECTAL EXAM: Yes deferred Back/Pelvis: COMMON NORMALS: thoracic and lumbar spine normal to inspection GENERAL BACK: No tenderness Extremity: COMMON NORMALS: normal to inspection, no clubbing, cyanosis or edema and no calf tenderness Neuro: SENSORIUM/ORIENTATION: Yes alert, Yes oriented to person, Yes oriented to place and Yes oriented to time CRANIAL NERVES: Yes CN normal except as noted MOTOR EXAM: 5/5 motor strength present throughout Psych: COMMON NORMALS: mental status grossly normal APPEARANCE: Yes grossly normal and Yes well kempt ATTITUDE: Yes calm Skin: COMMON NORMALS: turgor normal GENERAL SKIN EXAM: turgor normal and no scars LESIONS: no lesions TRAUMA: no lacerations or abrasions A&P Assessment and plan (1) Anemia: Status: Acute (2) GI bleeding: Likely upper, less likely variceal. We will investigate to control the bleeding and discover the cause. Status: Acute Coding Level of Care Code Acute Pipeline Superintendent Division for Chg Fwd Exam Comprehensive Diagnoses Anemia D64.9 GI bleeding K92.2 Comment Please allow Priscilla Gu to process this chart
--- NOTE | 2021-03-10 12:37 | P.ANESASSM_ITS ---
Documented by User: Kavita Koch CRNA 03/10/21 12:40 Pre-Anesthetic Assessment Pre-Anesthetic Assessment: Height/Weight: Height 1.78 m Weight 68.583 kg Temp Pulse Resp BP Pulse Ox 97.7 F 76 17 91/49 97 03/10/21 11:23 03/10/21 11:23 03/10/21 11:23 03/10/21 11:23 03/10/21 11:23 Preop Diagnosis: possible internal bleeding Proposed Procedure: Operation Date: 03/10/21 12:00 Proposed Procedures p EGD(Not Applicable) - Guille Hebert MD Was Beta Judie taken within 24 hours: N/A Was Clonidine taken within 24 hours: N/A Social: Comment: former smoker and MJ use. previous oxycontin and meth use Exam: Pre-Anes Outpt Exam: alert and oriented x 3 Airway: Submandibular: WNL Cervical ROM: WNL MP: 2 Dentition: Full History/ROS: No significant history except as noted Pulmonary: Pulmonary: COPD CV/HEM: CV/HEM: None reported : : None reported Hepatic: Hepatic: Cirrohsis and Hepatitis (Hep C) GI: GI: GERD Metabolic: Metabolic: None reported Musc/skel: Musc/skel: None reported Neuropsych: Neuropsych: Seizure (last seizure about a year ago) Anesthetic Plan: ASA status: 3E Anesthesia: Anesthesia Evaluation and MAC Risk of > 500 ml blood loss (7ml/kg in children): No Meds/Allergies Current Medications: Current Medications Generic Name Dose Route Start Last Admin Trade Name Freq PRN Reason Stop Dose Admin Albuterol/Ipratrop ium 3 ml 03/10/21 03:00 03/10/21 08:07 Ipratropium-Albu terol 3 Ml Neb INHALATION 3 ml Q6H.RESPIRATORY S CH Administration Octreotide Acetate 500 mcg/ 101 mls @ 10.1 ml s/hr 03/10/21 01:15 03/10/21 11:07 Sodium Chloride IV 50 mcg/hr .Q10H YANNI 10.1 mls/hr Administration 50 MCG/HR Ceftriaxone Sodium 1,000 mg/ 50 mls @ 100 mls/ hr 03/10/21 07:00 03/10/21 10:56 Sodium Chloride IV Infused Q24H YANNI Infusion Protocol Pantoprazole Sodiu m 40 mg/ 100 mls @ 20 mls/ hr 03/10/21 07:00 03/10/21 10:23 Sodium Chloride IV 8 mg/hr .Q5H YANNI 20 mls/hr Administration 8 MG/HR Sodium Chloride 1,000 mls @ 100 m ls/hr 03/10/21 10:45 03/10/21 11:23 Sodium Chloride 0.9% IV 100 mls/hr .Q10H YANNI Administration Midodrine 10 mg 03/10/21 10:42 03/10/21 11:09 Midodrine 5 Mg T ablet PO 10 mg TID YANNI Administration Morphine Sulfate 2 mg 03/10/21 01:10 03/10/21 02:10 Morphine 4 Mg/Ml Sdv 1 Ml IVP 2 mg Q4H PRN Administration SEVERE PAIN Sucralfate 1 gm 03/10/21 11:00 03/10/21 10:34 Sucralfate 1 Gm Tablet PO Not Given AC&BEDTIME YANNI PFSH Anesthesia PFSH: Medical History (Updated 03/10/21 @ 06:49 by Kari Collier MD) Acute urinary retention Anemia GI bleeding Hepatitis C Liver cirrhosis Surgical History (Updated 03/10/21 @ 06:49 by Kari Collier MD) History of back surgery Hx of cholecystectomy Family History Father CAD (coronary artery disease) Social History Alcohol intake: never Marital status: Current occupational status: disabled History of recent travel: No Data Anesthesia CBC & Chem 7: 03/10/21 12:20 03/10/21 05:14 Other Labs: Laboratory Results - last 48 hr 03/09/21 03/09/21 03/09/21 00:00 20:50 20:50 WBC 5.1 RBC 3.23 L Hgb 10.1 L Hct 30.5 L MCV 94.4 H MCH 31.3 MCHC 33.1 RDW 14.6 Plt Count 68 L MPV 10.4 Neut % (Auto) 64.0 Lymph % (Auto) 19.0 [place] % (Auto) 9.5 Eos % (Auto) 5.7 Baso % (Auto) 0.8 Neut # (Auto) 3.24 Lymph # (Auto) 1.0 [place] # (Auto) 0.5 Eos # (Auto) 0.3 Baso # (Auto) 0.0 Nucleated RBC % (auto) 0 Nucleated RBCs # 0.0 PT INR Sodium 140 Potassium 4.2 Chloride 107 Carbon Dioxide 19 L Anion Gap 18.2 BUN 38 H Creatinine 1.1 GFR Calculation 67.0 L Glucose 95 Calculated Osmolality 299 H Calcium 8.4 L Total Bilirubin 0.3 AST 22 ALT 15 Alkaline Phosphatase 73 Ammonia Total Protein 5.7 L Albumin 3.5 Globulin 2.2 Lipase 28 Blood Type O Positive Rho(D) Type Positive Antibody Screen Negative Crossmatch See Detail 03/09/21 03/10/21 03/10/21 20:50 05:14 05:14 WBC 4.7 RBC 2.77 L Hgb 8.7 L Hct 26.4 L MCV 95.3 H MCH 31.4 MCHC 33.0 RDW 14.7 Plt Count 55 L MPV 10.5 H Neut % (Auto) 60.2 Lymph % (Auto) 21.4 [place] % (Auto) 9.6 Eos % (Auto) 7.3 Baso % (Auto) 0.4 Neut # (Auto) 2.81 Lymph # (Auto) 1.0 [place] # (Auto) 0.5 Eos # (Auto) 0.3 Baso # (Auto) 0.0 Nucleated RBC % (auto) 0 Nucleated RBCs # 0.0 PT 15.90 H INR 1.23 H Sodium 140 Potassium 5.4 H Chloride 110 H Carbon Dioxide 20 L Anion Gap 15.4 BUN 40 H Creatinine 1.1 GFR Calculation 67.0 L Glucose 100 Calculated Osmolality 300 H Calcium 7.6 L Total Bilirubin 0.3 AST 20 ALT 13 Alkaline Phosphatase 57 Ammonia Total Protein 5.0 L Albumin 3.2 L Globulin 1.8 Lipase Blood Type Rho(D) Type Antibody Screen Crossmatch 03/10/21 05:14 WBC RBC Hgb Hct MCV MCH MCHC RDW Plt Count MPV Neut % (Auto) Lymph % (Auto) [place] % (Auto) Eos % (Auto) Baso % (Auto) Neut # (Auto) Lymph # (Auto) [place] # (Auto) Eos # (Auto) Baso # (Auto) Nucleated RBC % (auto) Nucleated RBCs # PT INR Sodium Potassium Chloride Carbon Dioxide Anion Gap BUN Creatinine GFR Calculation Glucose Calculated Osmolality Calcium Total Bilirubin AST ALT Alkaline Phosphatase Ammonia 60 Total Protein Albumin Globulin Lipase Blood Type Rho(D) Type Antibody Screen Crossmatch Cardiac Studies: No Data to Display Documented by User: Andre Trevizo 03/10/21 14:12 PFSH Anesthesia PFSH: Medical History (Updated 03/10/21 @ 06:49 by Kari Collier MD) Acute urinary retention Anemia GI bleeding Hepatitis C Liver cirrhosis Surgical History (Updated 03/10/21 @ 06:49 by Kari Collier MD) History of back surgery Hx of cholecystectomy Family History Father CAD (coronary artery disease) Social History Alcohol intake: never Marital status: Current occupational status: disabled History of recent travel: No Data Anesthesia CBC & Chem 7: 03/10/21 12:20 03/10/21 05:14 Cardiac Studies: No Data to Display
[2021-03-10] MEDS: sodium chloride 0.9% 1,000 ML 30 ML IV (12:44)
--- NOTE | 2021-03-10 13:01 | PC.NURSE ---
1254 Received patient post EDG. Color pink, warm and dry. Vital signs taken. Lungs clear bilaterally. S1S2, regular. No pain noted. 1256 pt arrousable to touch. Respirations regular, no distress. 1300 pt awake and alert, oriented to person, place and time. Abdomen soft, round, distended, active bowel sounds. 1310 Dr Hebert at bedside. 1312 Attempt to call report to Preethi. Unable to give report at this time. 1315 patient alert, pleasant, talkative 1322 Attempt to call report. No answer. 1326 Report called to Brgiitte NEVAREZ 1330 Patient transferred to room 252 via wheelchair.
[2021-03-10 13:41] LABS: Hematocrit 26.4 % (42.0-52.0); Hemoglobin 8.7 g/dL (11.7-16.6)
[2021-03-10] MEDS: ondansetron 2 mg/ML SDV 2 mL 4 MG IVP (14:25)
[2021-03-10] MEDS: acetaminophen 325 mg Tablet 650 MG PO ×2 (14:25→22:47)
[2021-03-10] MEDS: sucralfate 1 gm Tablet PO ×2 (17:26→20:24)
--- NOTE | 2021-03-10 18:00 | P.PN_ITS ---
Subjective Subjective: Interval history: Patient was seen this morning, he tells me that he was recently admitted at [facility], for a GI bleed, he tells that he got 1 unit of blood, they were trying to transfer him out to a different hospital, but hospital beds were difficult to find, so he spent a few days in the hospital his bleeding stopped, so they discharged him home, he does tell me that he has a history of a upper GI bleed, esophageal varices bleed, requiring 5 units of blood, but this was many years ago, denies any hemoptysis, he does not know me that he had a black stool just a few minutes ago, no lightheadedness, dizziness, nausea, vomiting Vitals/I&O/Wt Last Vital Signs Temp 97.5 F L 03/10/21 16:07 Pulse 69 03/10/21 16:07 Resp 16 03/10/21 16:07 BP 122/71 03/10/21 16:07 Pulse Ox 100 03/10/21 16:07 03/10/21 03/10/21 03/10/21 06:59 14:59 22:59 Intake Total 674.062 / 674.062 100 / 774.062 Balance 674.062 / 674.062 100 / 774.062 Weight last 48 hrs Weight 68.583 kg Weight 72.575 kg Weight 72.575 kg Physical Exam Const: COMMON NORMALS: no acute distress and patient oriented x3 Resp: COMMON NORMALS: normal respiratory effort, No retractions, No use of accessory muscles and clear to auscultation bilaterally AUSCULTATION: clear to auscultation bilaterally Cardio: COMMON NORMALS: regular rate, regular rhythm, S1 normal heart sound present and S2 normal heart sound present RATE: regular rate RHYTHM: regular rhythm HEART SOUNDS: S1 normal heart sound present and S2 normal heart sound present GI: COMMON NORMALS: Normal to inspection, nondistended, normoactive bowel sounds present, Soft to palpation and non-tender PALPATION: Yes Soft to palpation Extremity: COMMON NORMALS: no pedal edema Neuro: COMMON NORMALS: patient oriented x3 Psych: COMMON NORMALS: mental status grossly normal Data : 03/10/21 12:20 03/10/21 05:14 A&P Assessment and plan (1) GI bleeding: Patient with known liver cirrhosis p/w melanotic stool , likely upper GI bleeding from varices vs possible gastritis. Recently admitted and discharged from [facility] for GI bleed, cannot be transferred out for further evaluation due to beds, received 1 unit of blood History of esophageal variceal bleed, requiring 5 units of blood, a few years ago, with history of banding received 80mg IVP of Protonix and 50mcg octreotide Start protonix drip 8mg/hr and octreotide infusion 50mcg/hr Ceftriaxone 1g iv q24h for SBP prophylaxis in possibly variceal GI bleeding Monitor hemoglobin, less than 8.7, transfuse is less than 7 Dr. Hebert consulted from ER, will perform EGD NPO for likely UGIE Status: Acute (2) Anemia: Likely related to GI bleed check H& H with am labs, transfuse less than 7 Status: Acute Additional A&P Information h/o urinary retention: no current complaints in this regard. continue Flomax. Attestations Medical Necessity Statement*: Patient requires hospitalization for concerns for GI bleed Coding Level of Care Code Acute Special Effects Makeup Artist for g Fwd Diagnoses GI bleeding K92.2 Anemia D64.9
[2021-03-10 18:42] LABS: Hematocrit 28.2 % (42.0-52.0); Hemoglobin 9.3 g/dL (11.7-16.6)
[2021-03-10] MEDS: tamsulosin 0.4 mg Capsule PO (20:24)
[2021-03-11] VITALS (13 sets, daily range): BP systolic 96–110; BP diastolic 53–66; PULSE 59–94; RESP 14–18; TEMP 36.4–37.2; O2SAT 93–98
[2021-03-11 00:30] LABS: Hematocrit 24.2 % (42.0-52.0)
[2021-03-11] MEDS: ipratropium-albuterol 3 mL Neb INHALATION ×4 (02:09→21:27)
[2021-03-11] MEDS: pantoprazole 40 MG in sodium chloride 0.9% (plus) 100 ML 20 MG IV ×3 (02:24→13:18)
[2021-03-11] MEDS: sodium chloride 0.9% 1,000 ML 100 ML IV ×2 (05:57→17:36)
[2021-03-11] MEDS: cefTRIAXone 1,000 MG in sodium chloride 0.9% (plus) 50 ML 100 MG IV (05:58)
[2021-03-11] MEDS: sucralfate 1 gm Tablet PO ×4 (05:59→20:01)
[2021-03-11 06:26] LABS: Basophils % 0.5 %; Eosinophils # 0.3 10^3/uL (0.0-0.8); Eosinophils % 7.1 %; Hematocrit 24.6 % (42.0-52.0); Hemoglobin 8.1 g/dL (11.7-16.6); Lymphocytes # 0.8 10^3/uL (0.8-4.8); Lymphocytes % 20.5 %; Mean Corpuscular HGB Conc 32.9 g/dL (30.0-36.0); Mean Corpuscular Hemoglobin 31.3 pg (28.0-34.0); Mean Platelet Volume 10.6 fL (7.4-10.4); Monocytes # 0.3 10^3/uL (0.2-0.9); Monocytes % 7.9 %; Neutrophils # 2.42 10^3/uL (1.8-7.7); Neutrophils % 63.5 %; Nucleated Red Blood Cells % 0 %; Platelet Count 64 10^3/cmm (130-400); Red Blood Count 2.59 10^6/uL (4.1-5.3); Red Cell Distribution Width 15.1 % (12.1-15.1); White Blood Count 3.8 10^3/uL (4.0-10.0)
[2021-03-11 06:50] LABS: Alanine Aminotransferase 15 U/L (0-41); Alkaline Phosphatase 54 IU/L (40-130); Anion Gap 16.3 (5-19); Aspartate Amino Transferase 24 U/L (0-40); Blood Urea Nitrogen 31 mg/dL (8-23); Calcium 7.1 mg/dL (8.5-10.5); Carbon Dioxide 19 mmol/L (22-29); Chloride 113 mmol/L (98-107); Globulin 2.1 g/dL (1.3-4.6); Glomerular Filtration Rate 55.2 mL/min (90-130); Glucose 91 mg/dL (65-115); Osmolality Calculated 304 mOsm/kg (285-295); Potassium 4.3 mmol/L (3.5-5.1); Sodium 144 mmol/L (136-145); Total Bilirubin 0.4 mg/dL (0.15-1.2); Total Protein 5.1 g/dL (6.6-8.7)
--- NOTE | 2021-03-11 07:49 | CT_ITS ---
WS: [id number] CT ABDOMEN AND PELVIS NONCONTRAST HISTORY: GI bleed, abdominal pain and bloating. TECHNIQUE: Imaging performed through the abdomen and pelvis. Coronal and sagittal reformats are submi tted. All CT scans at [facility] use at least one of these dose optimization techniques: auto mated exposure control; mA and/or kV adjustment per patient size (includes targeted exams where dose is matched to clinical indication); or iterative reconstruction. DLP: 1311.46 mGy.cm COMPARISON: 02/12/2021 Lower thorax: Small but enlarging RIGHT pleural effusion. There is a new very small LEFT pleural effu elba. Emphysematous changes at the lung bases. There is marked thickening of the distal esophagus. Liver: Shrunken nodular liver consistent with cirrhosis. Small amount of perihepatic fluid. Gallbladder: Prior cholecystectomy. Pancreas: Pancreas is diffusely atrophied. Spleen: Moderate splenomegaly. Spleen measures over a length of 15.8 cm. Adrenal glands: Normal. No mass. Right kidney: Mild atrophy with no obstruction. Left kidney: Mild atrophy with no obstruction. Aorta: Mild atherosclerosis abdominal aorta with no aneurysm. No enlarged lymph nodes. There is a small amount of ascites throughout the abdomen and pelvis with mi nimal increase in amount since the prior examination. No free air is identified. GI tract: Markedly abnormal appearance of the GI tract. There is diffuse esophageal wall thickening d istally. There is marked thickening of the stomach mucosa extending into the antrum. There is marked thickening involving the colon, greatest involving the ascending colon wall measuring up to 16 mm. Th ere is increase fluid with wall thickening. The small bowel. No obstructive pattern. At this time no free air is appreciated. The appendix is normal. Abdominal wall: Negative. No hernia. Pelvis: Small amount of free fluid within the dependent portion of the pelvis. Minimal distention of the urinary bladder. Osseous structures: Advanced degenerative disc disease at L5-S1. No osteoblastic or osteolytic bone d isease. CT/CT abdomen pelvis wo con [id number] IMPRESSION: 1. Some very mild increase in size of the small bilateral pleural effusions si nce 02/12/2021. 2. Slight increase in amount of ascites since the prior study. 3. There is significant edema and wall thickening throughout the colon with in creased fluid throughout the small bowel. Additional mucosal thickening through out the stomach and distal esophagus. This may all be related to patient's cirr hosis and liver failure. Consider infectious etiologies. Less likely ischemia d ue to its diffuse involvement. Significant progression since the prior study. 4. No free air. 5. Splenomegaly. 6. Marked cirrhotic changes within the liver. 7. Prior cholecystectomy.
[2021-03-11] MEDS: iohexol 300 mg/mL 50 mL Btl PO (08:11)
--- NOTE | 2021-03-11 12:45 | PC.PHAR ---
pt states he takes care of his own medications-pt states he takes the medications entered-va faxed med list for the pt-va med list had bupropion 75mg 2 tabs bid pt states he hasnt taken in a few months
[2021-03-11 13:00] LABS: Hematocrit 25.3 % (42.0-52.0); Hemoglobin 8.1 g/dL (11.7-16.6)
--- NOTE | 2021-03-11 13:22 | P.PN_ITS ---
Subjective Subjective: Interval history: This morning patient was examined, he denies any lightheadedness, dizziness, no nausea, vomiting, does report increased abdominal distention, he has not had a bowel movement, denies any bloody or black stools overnight Vitals/I&O/Wt Last Vital Signs Temp 97.8 F 03/11/21 11:35 Pulse 84 03/11/21 11:35 Resp 18 03/11/21 11:35 BP 110/66 03/11/21 11:35 Pulse Ox 97 03/11/21 11:35 03/10/21 03/11/21 03/11/21 22:59 06:59 14:59 Intake Total 296.333 / 217.694 4040.666 / 2840.061 700 / 700 Output Total 200 / 200 1400 / 1600 700 / 700 Balance 96.333 / 770.395 469.666 / 1240.061 0 / 0 Weight last 48 hrs Weight 72.529 kg Weight 68.583 kg Weight 72.575 kg Weight 72.575 kg Physical Exam Const: COMMON NORMALS: no acute distress and patient oriented x3 Resp: COMMON NORMALS: normal respiratory effort, No retractions, No use of accessory muscles and clear to auscultation bilaterally AUSCULTATION: clear to auscultation bilaterally Cardio: COMMON NORMALS: regular rate, regular rhythm, S1 normal heart sound present and S2 normal heart sound present RATE: regular rate RHYTHM: regular rhythm HEART SOUNDS: S1 normal heart sound present and S2 normal heart sound present GI: COMMON NORMALS: Soft to palpation INSPECTION: Yes abdominal distension AUSCULTATION: Yes normoactive bowel sounds PALPATION: Yes Soft to palp ation, No Tenderness to palpation present (GI), No Guarding due to palpation present (GI) and No Rigid due to palpation Extremity: COMMON NORMALS: no pedal edema Neuro: COMMON NORMALS: patient oriented x3 Psych: COMMON NORMALS: mental status grossly normal Data : 03/11/21 12:49 03/11/21 06:12 A&P Assessment and plan (1) GI bleeding: Patient with known liver cirrhosis p/w melanotic stool , likely upper GI bleeding from varices vs possible gastritis. Recently admitted and discharged from [facility] for GI bleed, could not be transferred out for further evaluation due to beds, received 1 unit of blood, waiting on records History of esophageal variceal bleed, requiring 5 units of blood, a few years ago, with history of banding Stop IV Protonix drip, stop octreotide drip, switch to 40 mg IV Protonix 40 twice daily Ceftriaxone 1g iv q24h for SBP prophylaxis in possibly variceal GI bleeding Monitor hemoglobin, hemoglobin 8.1, transfuse is less than 7 Dr. Hebert consulted from ER, status post EGD, findings of gastritis Transition from clears to GI soft diet Abdomen is a bit distended today, will perform CT scan abdomen pelvis Status: Acute (2) Anemia: Likely related to GI bleed check H& H with am labs, transfuse less than 7 Status: Acute Additional A&P Information h/o urinary retention: no current complaints in this regard. continue Flomax. Attestations Medical Necessity Statement*: Patient requires hospitalization for GI bleed Coding Level of Care Code Acute Neurology Hospitalist for Eliseo Johns Diagnoses GI bleeding K92.2 Anemia D64.9
[2021-03-11] MEDS: polyethylene glycol 3350 Pkt 17 gm PO (16:45)
[2021-03-11] MEDS: docusate sodium 100 mg Capsule PO (17:36)
[2021-03-11] MEDS: pantoprazole 40 mg SDV IVP (17:36)
[2021-03-11] MEDS: acetaminophen 325 mg Tablet 650 MG PO (20:00)
[2021-03-11] MEDS: tamsulosin 0.4 mg Capsule PO (20:01)
[2021-03-12] VITALS (8 sets, daily range): BP systolic 107–135; BP diastolic 58–68; PULSE 81–107; RESP 16–19; TEMP 36.7–37.1; O2SAT 90–98
[2021-03-12 01:56] LABS: Basophils % 0.3 %; Eosinophils # 0.2 10^3/uL (0.0-0.8); Eosinophils % 6.3 %; Hematocrit 22.7 % (42.0-52.0); Hemoglobin 7.5 g/dL (11.7-16.6); Lymphocytes # 0.7 10^3/uL (0.8-4.8); Mean Corpuscular Hemoglobin 31.9 pg (28.0-34.0); Mean Corpuscular Volume 96.6 fl (80-94); Mean Platelet Volume 10.9 fL (7.4-10.4); Monocytes # 0.4 10^3/uL (0.2-0.9); Monocytes % 10.8 %; Neutrophils # 1.98 10^3/uL (1.8-7.7); Neutrophils % 59.7 %; Nucleated Red Blood Cells % 0 %; Platelet Count 55 10^3/cmm (130-400); Red Blood Count 2.35 10^6/uL (4.1-5.3); Red Cell Distribution Width 15.1 % (12.1-15.1); White Blood Count 3.3 10^3/uL (4.0-10.0)
[2021-03-12 02:27] LABS: Anion Gap 13.8 (5-19); Blood Urea Nitrogen 23 mg/dL (8-23); Calcium 7.1 mg/dL (8.5-10.5); Carbon Dioxide 19 mmol/L (22-29); Chloride 112 mmol/L (98-107); Glomerular Filtration Rate 55.2 mL/min (90-130); Glucose 113 mg/dL (65-115); Osmolality Calculated 296 mOsm/kg (285-295); Potassium 3.8 mmol/L (3.5-5.1); Sodium 141 mmol/L (136-145)
[2021-03-12] MEDS: sodium chloride 0.9% 1,000 ML 100 ML IV (03:33)
[2021-03-12] MEDS: pantoprazole 40 mg SDV IVP (06:04)
[2021-03-12] MEDS: sucralfate 1 gm Tablet PO (06:05)
[2021-03-12] MEDS: acetaminophen 325 mg Tablet 650 MG PO (06:05)
[2021-03-12] MEDS: cefTRIAXone 1,000 MG in sodium chloride 0.9% (plus) 50 ML 100 MG IV (06:05)
[2021-03-12] MEDS: ipratropium-albuterol 3 mL Neb INHALATION (09:09)
[2021-03-12 10:37] LABS: Hemoglobin 8.1 g/dL (11.7-16.6)
--- NOTE | 2021-03-12 10:57 | PC.SOCIAL ---
IMM Update Pg. 2 of IMM updated and reviewed with patient, who verbalized understanding. Copy provided.
[2021-03-12] MEDS: morphine 4 mg/mL SDV 1 mL 1 MG IVP (12:37)
[2021-03-12] MEDS: octreotide 500 MCG in sodium chloride 0.9% (100 ml) 100 ML 10.1 MCG IV (12:37)
--- NOTE | 2021-03-12 12:56 | P.TS_ITS ---
Transfer Summary Providers Date of Admission: 03/09/21 23:59 Date of Discharge: 03/12/21 Attending Provider at Admission: Kari Collier MD Attending Provider at Transfer: Dimas Khalil MD Primary Care Provider: [facility] Anticipated Date of Transfer: Anticipated date of transfer: 03/12/21 Receiving Facility & Provider: Receiving Provider: [] Receiving facility: [] Diagnoses at Discharge Discharge Diagnosis (1) GI bleeding: Status: Acute (2) Anemia: Status: Acute Reason for Visit Reason for Visit: possible internal bleeding Hospital Course Hospital Course This is a 65-year-old male with a past medical history of liver cirrhosis, splenomegaly, with history of hepatitis C status post treatment, history of esophageal variceal bleed roughly 5 years ago requiring band ligation, history of anemia, history of urinary retention, recently discharged from [facility] for GI bleed could not be transferred to tertiary level center due to availability of beds, his bleeding stabilized and was discharged home. Who presents to [facility] due to complaints of black tarry stools Patient was admitted to [facility] for concerns for upper GI bleed, no hematemesis, had observable melanotic stools, received Protonix drip, octreotide drip, Rocephin for SBP prophylaxis, hemoglobin got as low as 8.1, status post EGD with findings of gastritis. Patient was monitored on her medical floors, no significant hemodynamic compromise, no lightheadedness, no dizziness, no nausea, no vomiting continue to have complaints of melanotic stools, hemoglobin is low at 7.5. CT scan of the abdomen pelvis There is significant edema and wall thickening throughout the colon with increased fluid throughout the small bowel. Additional mucosal thickening throughout the stomach and distal esophagus. This may all be related to patient's cirrhosis and liver failure. Consider infectious etiologies. Less likely ischemia due to its diffuse involvement. Significant progression since the prior study. Stool studies were ordered, patient's antibiotic coverage was changed to Cipro and Flagyl. He had slight abdominal distention, no abdominal pain complaints, no diarrhea, but had complaints of melanotic stool as above. Given his continued drop in hemoglobin I am concerned for the possibility of continued esophageal variceal bleed, possible slow bleed requiring band ligation. In addition patient would benefit from colonoscopy. Thus patient was transferred for the need of gastroenterology, in [place]. Physical Exam Const: COMMON NORMALS: no acute distress and patient oriented x3 Resp: COMMON NORMALS: normal respiratory effort, No retractions, No use of accessory muscles and clear to auscultation bilaterally AUSCULTATION: clear to auscultation bilaterally Cardio: COMMON NORMALS: regular rate, regular rhythm, S1 normal heart sound present and S2 normal heart sound present RATE: regular rate RHYTHM: regular rhythm HEART SOUNDS: S1 normal heart sound present and S2 normal heart sound present GI: COMMON NORMALS: Normal to inspection, nondistended, normoactive bowel sounds present, Soft to palpation and non-tender PALPATION: Yes Soft to palpation Extremity: COMMON NORMALS: no pedal edema Neuro: COMMON NORMALS: patient oriented x3 Psych: COMMON NORMALS: mental status grossly normal TS Data Data Completed and Pending: Completed Studies During Hospitalization Category Date Time Status CT abdomen pelvis wo con [id number] Tesha zhao Cat Scan 03/11/21 07:49 Completed XR chest 1V chasity ble [id number] Routine Exams 03/10/21 01:10 Completed Pending at discharge Category Date Time Status Basic Metabolic P yadira AM LABS Lab 03/13/21 04:00 Ordered Basic Metabolic P yadira AM LABS Lab 03/14/21 04:00 Ordered Clostridioides Di fficile PCR Routin e Lab 03/11/21 13:24 Ordered Complete Blood Co unt w/Auto AM LABS Lab 03/13/21 04:00 Ordered Complete Blood Co unt w/Auto AM LABS Lab 03/14/21 04:00 Ordered Enteric Bacterial Panel by PCR Rout ine Lab 03/11/21 13:24 Ordered Enteric Parasite Panel by PCR Robert castro Lab 03/11/21 13:24 Ordered Hemoglobin and He matocrit Q6H Lab 03/12/21 14:00 Ordered Hemoglobin and He matocrit Q6H Lab 03/12/21 20:00 Ordered Hemoglobin and He matocrit Q6H Lab 03/13/21 02:00 Ordered Hemoglobin and He matocrit Q6H Lab 03/13/21 08:00 Ordered Hemoglobin and He matocrit Q6H Lab 03/13/21 14:00 Ordered Hemoglobin and He matocrit Q6H Lab 03/13/21 20:00 Ordered Hemoglobin and He matocrit Q6H Lab 03/14/21 02:00 Ordered Immunochemical Fe linda OCB Routine Lab 03/11/21 13:24 Ordered Lactoferrin Routi ne Lab 03/11/21 13:24 Ordered Partial Thrombopl astin Time Routine Lab 03/12/21 12:06 Received Prothrombin Time INR Routine Lab 03/12/21 12:06 Received Labs from last 24 hours 03/12/21 03/12/21 03/12/21 12:06 10:15 01:16 WBC RBC Hgb 8.1 L Hct MCV MCH MCHC RDW Plt Count MPV Neut % (Auto) Lymph % (Auto) [place] % (Auto) Eos % (Auto) Baso % (Auto) Neut # (Auto) Lymph # (Auto) [place] # (Auto) Eos # (Auto) Baso # (Auto) Nucleated RBC % (a uto) Nucleated RBCs # PT Pending INR Pending APTT Pending Sodium 141 Potassium 3.8 Chloride 112 H Carbon Dioxide 19 L Anion Gap 13.8 BUN 23 Creatinine 1.3 H GFR Calculation 55.2 L Glucose 113 Calculated Osmolal ity 296 H Calcium 7.1 L Crossmatch 03/12/21 03/11/21 03/09/21 01:16 12:49 00:00 WBC 3.3 L RBC 2.35 L Hgb 7.5 L 8.1 L Hct 22.7 L 25.3 L MCV 96.6 H MCH 31.9 MCHC 33.0 RDW 15.1 Plt Count 55 L MPV 10.9 H Neut % (Auto) 59.7 Lymph % (Auto) 22.0 [place] % (Auto) 10.8 Eos % (Auto) 6.3 Baso % (Auto) 0.3 Neut # (Auto) 1.98 Lymph # (Auto) 0.7 L [place] # (Auto) 0.4 Eos # (Auto) 0.2 Baso # (Auto) 0.0 Nucleated RBC % (a uto) 0 Nucleated RBCs # 0.0 PT INR APTT Sodium Potassium Chloride Carbon Dioxide Anion Gap BUN Creatinine GFR Calculation Glucose Calculated Osmolal ity Calcium Crossmatch See Detail Vitals: Last Vital Signs Temp 98.4 F 03/12/21 11:51 Pulse 107 H 03/12/21 11:51 Resp 18 03/12/21 12:37 BP 135/62 03/12/21 11:51 Pulse Ox 90 03/12/21 12:37 TS Medications Medications Home Medications multivitamin 1 tab PO DAILY 10/19/20 [History Confirmed 03/11/21] pantoprazole 40 mg tablet,delayed release 40 mg PO QPM 10/19/20 [History Confirmed 03/11/21] albuterol sulfate 90 mcg/actuation aerosol inhaler 2 puff INHALATION Q4H PRN g 11/19/20 [History Confirmed 03/11/21] carboxymethylcellulose sodium 1 % eye drops 1 drp OPHTHALMIC (EYE) QID 11/19/20 [History Confirmed 03/11/21] ferrous sulfate 325 mg (65 mg iron) tablet 325 mg PO DAILY PRN 11/19/20 [History Confirmed 03/11/21] furosemide 20 mg tablet 20 mg PO DAILY PRN 11/19/20 [History Confirmed 03/11/21] gabapentin 300 mg capsule 900 mg PO BID cap 11/19/20 [History Confirmed 03/11/21] potassium chloride 20 mEq tablet,extended release 20 meq PO QAM 11/19/20 [History Confirmed 03/11/21] psyllium husk 3.4 gram/5.4 gram oral powder 1 tsp PO DAILY PRN 11/19/20 [History Confirmed 03/11/21] acyclovir 200 mg PO DAILY 02/12/21 [History Confirmed 03/11/21] cholecalciferol (vitamin D3) [Vitamin D3] 100 mcg PO BID 02/12/21 [History Confirmed 03/11/21] docusate sodium [Colace] 100 mg PO BID PRN 02/12/21 [History Confirmed 03/11/21] fluticasone propion-salmeterol [Advair Diskus] 1 inh INHALATION BID 02/12/21 [History Confirmed 03/11/21] fluticasone propionate [Flonase] 1 - 2 spray INTRANASAL DAILY PRN 02/12/21 [History Confirmed 03/11/21] sildenafil 100 mg PO PRN PRN 02/12/21 [History Confirmed 03/11/21] tamsulosin 0.4 mg PO BEDTIME 02/12/21 [History Confirmed 03/11/21] testosterone cypionate 200 mg IM Q14D 02/12/21 [History Confirmed 03/11/21] tiotropium bromide [Spiriva Respimat] 2 puff INHALATION DAILY 02/12/21 [History Confirmed 03/11/21] trazodone 50 mg PO BEDTIME PRN 02/12/21 [History Confirmed 03/11/21] ibuprofen 600 mg PO Q4H PRN 03/11/21 [History Confirmed 03/11/21] Active Medications Acetaminophen (Acetaminophen 325 Mg Tablet) 650 mg PO Q6H PRN PRN Reason: Mild/Mod Pain Or Temp >/= 101 Last Admin: 03/12/21 06:05 Dose: 650 mg Documented by: Albuterol Sulfate (Albuterol 2.5 Mg/0.5 Ml Neb) 2.5 mg INHALATION Q4H.RESPIRATORY PRN PRN Reason: SHORTNESS OF BREATH Albuterol/Ipratropium (Ipratropium-Albuterol 3 Ml Neb) 3 ml INHALATION Q6H.RESPIRATORY YANNI Last Admin: 03/12/21 09:09 Dose: 3 ml Documented by: Docusate Sodium (Docusate Sodium 100 Mg Capsule) 100 mg PO BID YANNI Last Admin: 03/12/21 11:01 Dose: Not Given Documented by: Ceftriaxone Sodium 1,000 mg/ (Sodium Chloride) 50 mls @ 100 mls/hr IV Q24H YANNI; Protocol Last Infusion: 03/12/21 06:36 Dose: Infused Documented by: Sodium Chloride (Sodium Chloride 0.9%) 1,000 mls @ 100 mls/hr IV .Q10H YANNI Last Admin: 03/12/21 03:33 Dose: 100 mls/hr Documented by: Octreotide Acetate 500 mcg/ (Sodium Chloride) 101 mls @ 10.1 mls/hr IV .Q10H YANNI Last Admin: 03/12/21 12:37 Dose: 50 mcg/hr, 10.1 mls/hr Documented by: Morphine Sulfate (Morphine 4 Mg/Ml Sdv 1 Ml) 1 mg IVP Q4H PRN PRN Reason: SEVERE PAIN Last Admin: 03/12/21 12:37 Dose: 1 mg Documented by: Naloxone HCl (Naloxone 0.4 Mg/Ml Sdv) 0.1 mg IVP Q2M PRN PRN Reason: OPIATERV Ondansetron HCl (Ondansetron 2 Mg/Ml Sdv 2 Ml) 4 mg IVP Q8H PRN PRN Reason: vomiting, or N/V if npo Last Admin: 03/10/21 14:25 Dose: 4 mg Documented by: Pantoprazole Sodium (Pantoprazole 40 Mg Sdv) 40 mg IVP Q12H [facility] Last Admin: 03/12/21 06:04 Dose: 40 mg Documented by: Polyethylene Glycol (Polyethylene Glycol 3350 Pkt 17 Gm) 17 gm PO DAILY [facility] Last Admin: 03/12/21 11:01 Dose: Not Given Documented by: Sucralfate (Sucralfate 1 Gm Tablet) 1 gm PO AC&BEDTIME [facility] Last Admin: 03/12/21 12:38 Dose: Not Given Documented by: Tamsulosin HCl (Tamsulosin 0.4 Mg Capsule) 0.4 mg PO BEDTIME [facility] Last Admin: 03/11/21 20:01 Dose: 0.4 mg Documented by: Discharge Plan Discharge Patient Disposition: Home Condition: Stable Prescriptions: No Action gabapentin 300 mg capsule 900 mg PO BID RF: 0 Artificial Tears (cmc) 1 % drops 1 drp ophthalmic (eye) QID RF: 0 ferrous sulfate 325 mg (65 mg iron) tablet 325 mg PO DAILY PRN (Reason: unknown) RF: 0 furosemide 20 mg tablet 20 mg PO DAILY PRN (Reason: Edema) RF: 0 potassium chloride 20 mEq tablet extended release 20 meq PO QAM RF: 0 Metamucil 3.4 gram/5.4 gram powder 1 tsp PO DAILY PRN (Reason: unknown) RF: 0 albuterol sulfate 90 mcg/actuation HFA aerosol inhaler 2 puff inhalation Q4H PRN (Reason: Shortness Of Breath) RF: 0 pantoprazole 40 mg tablet,delayed release (DR/EC) 40 mg PO QPM RF: 0 multivitamin Tablet 1 tab PO DAILY RF: 0 sildenafil 100 mg Tablet 100 mg PO PRN PRN (Reason: Erectile Dysfunction) RF: 0 trazodone 100 mg Tablet 50 mg PO BEDTIME PRN (Reason: Sleep) RF: 0 docusate sodium [Colace] 100 mg Capsule 100 mg PO BID PRN (Reason: Constipation) RF: 0 acyclovir 200 mg Capsule 200 mg PO DAILY RF: 0 fluticasone propion-salmeterol [Advair Diskus] 100-50 mcg/dose Blister With Device 1 inh INHALATION BID RF: 0 testosterone cypionate 200 mg/mL Oil 200 mg IM Q14D RF: 0 fluticasone propionate [Flonase] 50 mcg/actuation [place],Suspension 1 - 2 spray INTRANASAL DAILY PRN (Reason: Allergy Symptoms) RF: 0 cholecalciferol (vitamin D3) [Vitamin D3] 50 mcg (2,000 unit) Capsule 100 mcg PO BID RF: 0 Spiriva Respimat 2.5 mcg/actuation Mist 2 puff INHALATION DAILY RF: 0 tamsulosin 0.4 mg capsule 0.4 mg PO BEDTIME RF: 0 ibuprofen 200 mg Tablet 600 mg PO Q4H PRN (Reason: Pain) RF: 0 Patient Instructions: GI Discharge Instructions, Opioid Safety Transfer Attestations Time Spent in Transfer Care*: other Quality Metrics Clinical Quality Measures: During this hospital stay, did patient experience: None Coding Level of Care Code Acute Almond Paste Molder for g Fwd Diagnoses GI bleeding K92.2 Anemia D64.9
[2021-03-12 13:05] LABS: INR 1.13 (0.8-1.2); Partial Thromboplastin Time 31.2 SECONDS (23.9-36.7)
[2021-03-12 13:27] LABS: Erythrocyte Sedimentation Rate < 1 mm/hr (0-10)
[2021-03-12 13:29] LABS: C Reactive Protein 5.4 mg/L (0.0-4.9)
[2021-03-12 13:34] LABS: Procalcitonin 0.04 ng/mL (0-0.5)
--- NOTE | 2021-03-12 14:38 | PC.CHAP ---
Pastoral Care Encounter/Spiritual Assessment Type of Contact [] Declined assistant professor of chemistry visit [] Patient/Family/Request visit [] Outpatient visit [xx] Follow-up visit [] Physician referral [] Code/Alert [xx] Routine visit [] Staff referral [] Actively dying [] Patient sleeping [] Family support [] [] Out of room [] Palliative care [] [] Receiving care in room [] Pre-surgical visit [] Trauma [] Long length of stay [] ICU visit [] Other: Relational/Emotional Strength [xx] Patient feels connected with others/family/visitors/staff [] Distress [] Loneliness/isolation [] Abandonment Spirituality of Patient [xx] Person of Dalila [xx] Attends Buddhist of their Dalila [xx] Believes in Prayer [xx] Reads Bible or Jew materials [] There are Spiritual issues to be addressed Retail Director Interventions [xx] Prayer [xx] Active listening [xx] Non-anxious presence [] Spiritual/emotional support [] Crisis/trauma care [] Spiritual counseling [] Bereavement support [] Provided bereavement packet [xx] Provided Bible/devotional materials [] Provided toy/stuffed animal, coloring book to patient or family member [] Provided Communion [] Anointing/[place] [] Salvation [xx] Completed spiritual assessment [] Other: Impact on Illness or Injury [] Angry [] Fearful [] Anxious [] Often cries [] Exhaustion [xx] Unable to work [] Unable to attend tenriism [] Unable to walk/stand [] Unable to read [] Unable to drive [] Unable to eat/drink [] Unable to sleep [] Unable to be with family [] Patient intubated [] Other: Summary Patient feeling great at present. He wanted assistant professor of chemistry to pray that doctors will soon correctly diagnose what is wrong with him and give him some answers. He is using this hospitalization time to study his Bible and is thanking God for the opportunity to do so. Time spent with patient 5 minutes
== END 2021-03-12 14:05 | disposition short-term general hospital (02) | DRG 370 ==
LOC: ER 03-10 00:18 → MEDSURG 03-10 00:35
PROVIDERS: Internal Medicine; Admitting Provider Student in an Organized Health Care Education/Training Program; Emergency Provider Emergency Medicine; Visit Provider Family Medicine
PROC: 0DJ08ZZ Inspection of Upper Intestinal Tract, Via Natural or Artificial Opening Endoscopic (ICD-10-PCS; CPT 43235; principal; 2021-03-10 12:00)
DX: I85.01 Esophageal varices with bleeding (principal); K29.51 Unspecified chronic gastritis with bleeding; D64.9 Anemia, unspecified; K74.60 Unspecified cirrhosis of liver; B19.20 Unspecified viral hepatitis C without hepatic coma; R16.1 Splenomegaly, not elsewhere classified; J44.9 Chronic obstructive pulmonary disease, unspecified; K21.9 Gastro-esophageal reflux disease without esophagitis; R33.9 Retention of urine, unspecified
CPT/HCPCS: 36415; 43235; 71045; 74176; 80048; 80053; 82140; 83690; 84145; 85014; 85018; 85025; 85610; 85651; 85730; 86140; 86850; 86900; 86920; 94640; 96374; 96375; 99285; C9113; J0696; J2270; J2354; J2405; J2704; J7030; Q9967

== ENCOUNTER 2021-03-23 08:54 | Emergency (ER) | payer OTHER, MEDICARE, SELFPAY ==
[2021-03-23 09:04] VITALS: BP 122/66; PULSE 80; RESP 20; TEMP 36.9; O2SAT 99; BMI 22.9
--- NOTE | 2021-03-23 10:05 | CT_ITS ---
WS: [id number] CT ABDOMEN PELVIS TECHNIQUE: Contrast-enhanced CT of the abdomen and pelvis with coronal and sagittal reformatted image s. CLINICAL INFORMATION: upper ab pain; recent esophageal banding, paracentesis COMPARISON: CT March 11, 2021 DLP: 1044.[address] scans at [facility] use at least one of these dose optimization techniques: automated e xposure control; mA and/or kV adjustment per patient size (includes targeted exams where dose is matc hed to clinical indication); or iterative reconstruction. FINDINGS: Small right and no significant left pleural effusions. Small right pleural effusion appears improved compared to previous. Slight right basilar atelectasis. Diffuse fatty infiltration liver. Cirrhotic c onfiguration to the liver with cholecystectomy clips. Small amount of perihepatic ascites. Splenomega ly. Small amount of perisplenic ascites. Upper abdominal and paraesophageal varices. General glands a re normal. Normal renal parenchymal enhancement. No hydronephrosis. Normal caliber abdominal aorta. Mild mesenteric edema with scattered ascites in the pericolic gutters and pelvis. This is similar to previous. Normal pancreatic parenchymal enhancement. Fatty atrophy of the pancreas. Portal vein and s plenic vein are patent. Mild urine distention of the bladder. Normal sigmoid colon. No evidence of hi gh-grade small or large bowel obstruction. Previously described diffuse transmural colonic edema has essentially resolved. Disc space narrowing worse L5-S1. No other significant changes. CT/CT abdomen pelvis w con* [id number] IMPRESSION: 1. Cirrhotic liver with splenomegaly and evidence of portal hypertension. 2. Upper abdominal and paraesophageal varices unchanged. 3. Mild scattered abdominal and pelvic ascites with mild mesenteric edema efren lar to previous. 4. Splenomegaly. 5. Small right pleural effusion improved compared to previous. 6. Previously described diffuse colonic edema has resolved.
--- NOTE | 2021-03-23 10:06 | W.ED.ABDPA2 ---
HPI - Abdominal Pain General: Chief Complaint: Abdominal Pain Stated Complaint: ABD PAINS Time Seen by Provider: 03/23/21 09:54 Source: patient Mode of arrival: ambulatory Limitations: no limitations History of Present Illness: HPI narrative: Patient is a 65-year-old male with a history of liver cirrhosis, esophageal varices, splenomegaly, and hepatitis C-treated presents to ED today with a complaint of right upper abdominal pains. Patient tells me he has had these pains chronically but states they do not seem to be improving. Patient was recently admitted to our hospital for concerns of a GI bleed. He underwent EGD by Dr. Hebert which showed gastritis. Due to patient's continually decreasing hemoglobin levels he was transferred to gastroenterology at [facility] for evaluation and procedural esophageal banding. Patient states while he was hospitalized there they also did a paracentesis. Patient feels like his abdominal pains have worsened since his discharge. He has recently had a treatment facility and states when he mentioned the abdominal pain to the personnel there they dumped me off here. Patient states his black/tarry/bloody stools that he presented with earlier this month are gone. MD elicited complaint: abdominal pain Exacerbating factors: nothing Relieving factors: nothing Associated Symptoms: Reports nausea; Denies change in bowel habits, change in stool character, chills, diarrhea, dysuria, fever(s), hematochezia, hematuria, melena and vomiting Review of Systems Const: Denies: fever(s), chills, body aches, fatigue or malaise Card: Denies: chest pain Resp: Denies: dyspnea GI: Reports: abdominal pain and nausea; Denies: vomiting, diarrhea, change in bowel habits, rectal pain, rectal swelling, change in stool character, hematochezia or melena : Denies: flank pain, dysuria or hematuria Musc: Denies: neck pain, back pain, extremity pain or joint pain Skin/Breast: Denies: rash Neuro: Denies: headache(s) PFSH ED PFSH: Medical History (Updated 03/23/21 @ 12:02 by ASHWIN Long) Acute urinary retention Anemia GI bleeding Hepatitis C Liver cirrhosis Surgical History (Updated 03/10/21 @ 06:49 by Kari Collier MD) History of back surgery Hx of cholecystectomy Family History Father CAD (coronary artery disease) Social History Alcohol intake: never Marital status: Current occupational status: disabled History of recent travel: No Physical Exam Const: COMMON NORMALS: no acute distress, patient oriented x3, no limitations and alert ORIENTATION/CONSCIOUSNESS: Yes awake, Yes oriented to person, Yes oriented to place and Yes oriented to time HENMT: COMMON NORMALS: normocephalic and atraumatic HEAD & SCALP: normal to inspection, normocephalic and atraumatic Resp: COMMON NORMALS: normal respiratory effort and clear to auscultation bilaterally AUSCULTATION: clear to auscultation bilaterally Cardio: COMMON NORMALS: regular rate and regular rhythm RATE: regular rate RHYTHM: regular rhythm GI: COMMON NORMALS: Soft to palpation INSPECTION: Yes abdominal distension AUSCULTATION: Yes normoactive bowel sounds PALPATION: Yes Soft to palpation and Yes Tenderness to palpation present (GI) Details: RUQ Extremity: COMMON NORMALS: no clubbing, cyanosis or edema, no calf tenderness and no pedal edema Neuro: VIDAL COMA SCALE: document GCS findings [place] coma scale eye opening: Spontaneous [place] coma scale verbal response: Orientated [place] coma scale motor response: [place] commands [place] coma scale total score: 15 COMMON NORMALS: patient oriented x3 SENSORIUM/ORIENTATION: Yes alert, Yes oriented to person, Yes oriented to place and Yes oriented to time Course Vital Signs: Vital signs: Vital Signs Temperature 98.5 F 03/23/21 09:04 Pulse Rate 80 03/23/21 09:04 Respiratory Rate 20 H 03/23/21 09:04 Blood Pressure 122/66 03/23/21 09:04 Pulse Oximetry 99 03/23/21 09:04 MDM - Abdominal Pain MDM Narrative: Medical decision making narrative: Patient is a 65-year-old male here for chronic abdominal pain. Patient states he is here because pain does not seem to be improving. He was recently admitted to our hospital for concerns of a GI bleed and was subsequently transferred due to the need for esophageal banding. Records from [facility] obtained. Patient did undergo esophageal banding x 5. He underwent colonoscopy with no significant findings. Had a paracentesis performed with no diagnosis of SBP. He has no fever or AMS here. Abdominal pain is at baseline. He has mild abdominal distention that he states is chronic. Hemoglobin was 8.4 upon discharge from their facility-about a week ago. It is 8.8 today. He has no complaints of hematochezia or melena stools today. CT scan showing no acute findings. Patient is stable for DC at this time. He has follow up instructions through discharge summary from [facility] for GI follow up. Patient states his rehabilitation facility has this paperwork-encouraged him to find out when this appointment is to make sure he attends. Strict return to ED precautions given. Lab Data: Attestation: I reviewed the patient's lab results. Labs: Lab Results 03/23/21 03/23/21 03/23/21 10:05 10:05 10:13 WBC 4.4 10^3/uL 10^3/ uL (4.0-10.0) RBC 3.06 10^6/uL L 10 ^6/uL (4.1-5.3) Hgb 8.8 g/dL L g/dL (11.7-16.6) Hct 27.9 % L % (42.0-52.0) MCV 91.2 fl fl (80-94) MCH 28.8 pg pg (28.0-34.0) MCHC 31.5 g/dL g/dL (30.0-36.0) RDW 13.7 % % (12.1-15.1) Plt Count 77 10^3/cmm L 10^ 3/cmm (130-400) MPV 10.4 fL fL (7.4-10.4) Neut % (Auto) 69.1 % % Lymph % (Auto) 14.0 % % Hayes % (Auto) 9.0 % % Eos % (Auto) 7.0 % % Baso % (Auto) 0.7 % % Neut # (Auto) 3.07 10^3/uL 10^3 /uL (1.8-7.7) Lymph # (Auto) 0.6 10^3/uL L 10^ 3/uL (0.8-4.8) Hayes # (Auto) 0.4 10^3/uL 10^3/ uL (0.2-0.9) Eos # (Auto) 0.3 10^3/uL 10^3/ uL (0.0-0.8) Baso # (Auto) 0.0 10^3/uL 10^3/ uL (0.0-0.1) Nucleated RBC % (a uto) 0 % % Nucleated RBCs # 0.0 /100WBC /100W BC Sodium 140 mmol/L mmol/L (136-145) Potassium 3.8 mmol/L mmol/L (3.5-5.1) Chloride 108 mmol/L H mmol /L (98-107) Carbon Dioxide 21 mmol/L L mmol/ L (22-29) Anion Gap 14.8 (5-19) BUN 12 mg/dL mg/dL (8-23) Creatinine 1.0 mg/dL mg/dL (0.7-1.2) GFR Calculation 74.8 mL/min L mL/ min (90-130) Glucose 101 mg/dL mg/dL (65-115) Calculated Osmolal ity 290 mOsm/kg mOsm/ kg (285-295) Calcium 7.5 mg/dL L mg/dL (8.5-10.5) Total Bilirubin 0.4 mg/dL mg/dL (0.15-1.2) AST 25 U/L U/L (0-40) ALT 14 U/L U/L (0-41) Alkaline Phosphata se 84 IU/L IU/L (40-130) Total Protein 5.9 g/dL L g/dL (6.6-8.7) Albumin 3.5 g/dL g/dL (3.5-5.2) Globulin 2.4 g/dL g/dL (1.3-4.6) Lipase 16 U/L U/L (13-60) Urine Color Straw (Yellow) Urine Appearance Clear (CLEAR) Urine pH 5 (5-7) Ur Specific Gravit y 1.005 (1.005-1.030) Urine Protein Neg (Negative) Urine Glucose (UA) Norm (Normal) Urine Ketones Negative (Negative) Urine Blood Neg (Negative) Urine Nitrate Negative (Negative) Urine Bilirubin Neg (Negative) Urine Urobilinogen Norm mg/dL mg/dL (Negative) Ur Leukocyte Jaclyn ase Negative (Negative) Imaging Data ^: CT Abd/Pel: Radiologist's impression: [employer] [id number] Scan ReportSigned Patient: Gee Dobson #: [id number]: 5Acct#:[id number]/Sex: 65 / MADM Date: 03/23/21Loc: ERRoom/Bed:Attending Dr: Ordering Provider/Ordering MD: Jackelyn Akers Date of Service: 03/23/21 Procedure(s): CT abdomen pelvis w con* [id number] Accession Number(s): [id number] Report Number: [id number] WS: [id number] CT ABDOMEN PELVIS TECHNIQUE: Contrast-enhanced CT of the abdomen and pelvis with coronal and sagittal reformatted images. CLINICAL INFORMATION: upper ab pain; recent esophageal banding, paracentesis COMPARISON: CT March 11, 2021 DLP: 1044.[address] scans at [facility] use at least one of these dose optimization techniques: automated exposure control; mA and/or kV adjustment per patient size (includes targeted exams where dose is matched to clinical indication); or iterative reconstruction. FINDINGS: Small right and no significant left pleural effusions. Small right pleural effusion appears improved compared to previous. Slight right basilar atelectasis. Diffuse fatty infiltration liver. Cirrhotic configuration to the liver with cholecystectomy clips. Small amount of perihepatic ascites. Splenomegaly. Small amount of perisplenic ascites. Upper abdominal and paraesophageal varices. General glands are normal. Normal renal parenchymal enhancement. No hydronephrosis. Normal caliber abdominal aorta. Mild mesenteric edema with scattered ascites in the pericolic gutters and pelvis. This is similar to previous. Normal pancreatic parenchymal enhancement. Fatty atrophy of the pancreas. Portal vein and splenic vein are patent. Mild urine distention of the bladder. Normal sigmoid colon. No evidence of high-grade small or large bowel obstruction. Previously described diffuse transmural colonic edema has essentially resolved. Disc space narrowing worse L5-S1. No other significant changes. CT/CT abdomen pelvis w con* [id number] IMPRESSION: 1. Cirrhotic liver with splenomegaly and evidence of portal hypertension. 2. Upper abdominal and paraesophageal varices unchanged. 3. Mild scattered abdominal and pelvic ascites with mild mesenteric edema similar to previous. 4. Splenomegaly. 5. Small right pleural effusion improved compared to previous. 6. Previously described diffuse colonic edema has resolved. Dictated By:Josue Foster MDSigned By:Josue Foster MDSigned Date/Time:03/23/21 1144DD/ 1134 Discharge Plan Discharge Patient Disposition: Home Clinical Impression: History of esophageal varices, Chronic liver disease and cirrhosis Condition: Stable Prescriptions: No Action gabapentin 300 mg capsule 900 mg PO BID RF: 0 Artificial Tears (cmc) 1 % drops 1 drp ophthalmic (eye) QID RF: 0 ferrous sulfate 325 mg (65 mg iron) tablet 325 mg PO DAILY PRN (Reason: unknown) RF: 0 furosemide 20 mg tablet 20 mg PO DAILY PRN (Reason: Edema) RF: 0 potassium chloride 20 mEq tablet extended release 20 meq PO QAM RF: 0 Metamucil 3.4 gram/5.4 gram powder 1 tsp PO DAILY PRN (Reason: unknown) RF: 0 albuterol sulfate 90 mcg/actuation HFA aerosol inhaler 2 puff inhalation Q4H PRN (Reason: Shortness Of Breath) RF: 0 pantoprazole 40 mg tablet,delayed release (DR/EC) 40 mg PO QPM RF: 0 multivitamin Tablet 1 tab PO DAILY RF: 0 sildenafil 100 mg Tablet 100 mg PO PRN PRN (Reason: Erectile Dysfunction) RF: 0 trazodone 100 mg Tablet 50 mg PO BEDTIME PRN (Reason: Sleep) RF: 0 docusate sodium [Colace] 100 mg Capsule 100 mg PO BID PRN (Reason: Constipation) RF: 0 acyclovir 200 mg Capsule 200 mg PO DAILY RF: 0 fluticasone propion-salmeterol [Advair Diskus] 100-50 mcg/dose Blister With Device 1 inh INHALATION BID RF: 0 testosterone cypionate 200 mg/mL Oil 200 mg IM Q14D RF: 0 fluticasone propionate [Flonase] 50 mcg/actuation [place],Suspension 1 - 2 spray INTRANASAL DAILY PRN (Reason: Allergy Symptoms) RF: 0 cholecalciferol (vitamin D3) [Vitamin D3] 50 mcg (2,000 unit) Capsule 100 mcg PO BID RF: 0 Spiriva Respimat 2.5 mcg/actuation Mist 2 puff INHALATION DAILY RF: 0 tamsulosin 0.4 mg capsule 0.4 mg PO BEDTIME RF: 0 ibuprofen 200 mg Tablet 600 mg PO Q4H PRN (Reason: Pain) RF: 0 Discharge Orders: Discharge ED (Routine); Ordered 03/23/21 Ordered By: Jackelyn Akers Referrals: [facility] [Primary Care Provider] - Activity Restrictions/Additional Instructions: As we discussed according to your discharge paperwork from [facility] you should have an upcoming follow-up appointment with your GI provider Dr. Cheung in a week or so. Please have the treatment facility look at your discharge paperwork so they can work on getting you a ride to this appointment. You also need to follow up here at the [facility] this week if possible for re-evaluation. You need to return to the emergency department immediately for concerns of vomiting, blood in your vomit, black/tarry or bloody stools, severe dizziness/lightheadedness/passing out episodes, severe abdominal pain, fevers, altered mental status or any other concerns you may have. Coding Level of Care Code ED Foreign Collection Clerk for Eliseo Fwd Exam Detailed
[2021-03-23 10:11] VITALS: BP 103/55; PULSE 71; RESP 18; O2SAT 97
[2021-03-23 10:20] LABS: Add Urine Microscopic? NO; Charge for UA Resulting for Rev
[2021-03-23 10:23] LABS: Basophils % 0.7 %; Eosinophils # 0.3 10^3/uL (0.0-0.8); Hematocrit 27.9 % (42.0-52.0); Hemoglobin 8.8 g/dL (11.7-16.6); Lymphocytes # 0.6 10^3/uL (0.8-4.8); Mean Corpuscular HGB Conc 31.5 g/dL (30.0-36.0); Mean Corpuscular Hemoglobin 28.8 pg (28.0-34.0); Mean Corpuscular Volume 91.2 fl (80-94); Mean Platelet Volume 10.4 fL (7.4-10.4); Monocytes # 0.4 10^3/uL (0.2-0.9); Neutrophils # 3.07 10^3/uL (1.8-7.7); Neutrophils % 69.1 %; Nucleated Red Blood Cells % 0 %; Platelet Count 77 10^3/cmm (130-400); Red Blood Count 3.06 10^6/uL (4.1-5.3); Red Cell Distribution Width 13.7 % (12.1-15.1); White Blood Count 4.4 10^3/uL (4.0-10.0)
[2021-03-23 10:31] LABS: Bilirubin Urine Neg (Negative); Blood Urine Neg (Negative); Glucose Urine UA Norm (Normal); Ketones Urine Negative (Negative); Leukocyte Esterase Urine Negative (Negative); Nitrate Urine Negative (Negative); Protein Urine Neg (Negative); Specific Gravity, Urine 1.005 (1.005-1.030); Urine Appearance Clear (CLEAR); Urine Color Straw (Yellow); Urobilinogen Urine Norm (Negative); pH Urine 5 (5-7)
[2021-03-23 10:39] LABS: Alanine Aminotransferase 14 U/L (0-41); Albumin Level 3.5 g/dL (3.5-5.2); Alkaline Phosphatase 84 IU/L (40-130); Anion Gap 14.8 (5-19); Aspartate Amino Transferase 25 U/L (0-40); Blood Urea Nitrogen 12 mg/dL (8-23); Calcium 7.5 mg/dL (8.5-10.5); Carbon Dioxide 21 mmol/L (22-29); Chloride 108 mmol/L (98-107); Globulin 2.4 g/dL (1.3-4.6); Glomerular Filtration Rate 74.8 mL/min (90-130); Glucose 101 mg/dL (65-115); Lipase 16 U/L (13-60); Osmolality Calculated 290 mOsm/kg (285-295); Potassium 3.8 mmol/L (3.5-5.1); Sodium 140 mmol/L (136-145); Total Bilirubin 0.4 mg/dL (0.15-1.2); Total Protein 5.9 g/dL (6.6-8.7)
[2021-03-23 11:11] VITALS: BP 143/77; PULSE 79; RESP 18; O2SAT 99
[2021-03-23] MEDS: iodixanol 320 mg/mL 100mL Btl IV (11:13)
[2021-03-23 12:11] VITALS: BP 131/72; PULSE 76; RESP 18; O2SAT 99
--- NOTE | 2021-03-23 12:30 | PC.NURSE ---
reviewed discharge instructions with patient, patient questioned his appt in [place], advised to speak with staff at treatment facility. pt verbalized understanding that he has to discuss future appts with staff, removed IV, cath in tact. spoke with Benjy at facility [phone], he is setting up a ride for the patient to return
== END 2021-03-23 12:35 | disposition home or self-care (01) ==
PROVIDERS: Emergency Provider Physician Assistant
DX: K74.60 Unspecified cirrhosis of liver (principal); Z86.19 Personal history of other infectious and parasitic diseases
CPT/HCPCS: 74177; 80053; 81003; 83690; 85025; 99283; Q9967

== ENCOUNTER 2023-04-15 10:43 | Emergency (ER) | payer OTHER, MEDICAID, SELFPAY ==
[2023-04-15] VITALS (9 sets, daily range): BP systolic 133–144; BP diastolic 73–85; PULSE 79–105; RESP 12–19; TEMP 36.7; O2SAT 9–100; BMI 18.6
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
[2023-04-15] MEDS: iohexol 350 mg/mL 500 mL Btl (per mL) IV (11:11)
[2023-04-15 11:40] LABS: Add Urine Microscopic? NO; Charge for UA Resulting for Rev
[2023-04-15 11:44] LABS: Bilirubin Urine Neg (Negative); Blood Urine Neg (Negative); Glucose Urine UA Norm (Normal); Ketones Urine Negative (Negative); Leukocyte Esterase Urine Negative (Negative); Nitrate Urine Negative (Negative); Protein Urine Neg (Negative); Urine Appearance Clear (CLEAR); Urine Color Yellow (Yellow); Urobilinogen Urine Norm (Negative); pH Urine 6.5 (5-7)
[2023-04-15 11:46] LABS: Basophils % 0.4 %; Eosinophils # 0.2 10^3/uL (0.0-0.8); Eosinophils % 2.4 %; Hematocrit 32.2 % (37-53); Lymphocytes # 0.5 10^3/uL (0.8-4.8); Mean Corpuscular HGB Conc 32.6 g/dL (30-55); Mean Corpuscular Hemoglobin 30.3 pg (27-33); Mean Corpuscular Volume 93.1 fl (82-101); Mean Platelet Volume 9.2 fL (7.4-10.4); Monocytes # 0.6 10^3/uL (0.2-0.9); Monocytes % 9.4 %; Neutrophils # 5.34 10^3/uL (1.8-7.7); Neutrophils % 80.2 %; Nucleated Red Blood Cells % 0 %; Platelet Count 83 10^3/cmm (157-399); Red Blood Count 3.46 10^6/uL (3.85-5.65); Red Cell Distribution Width 13.8 % (12.1-15.1); White Blood Count 6.67 10^3/uL (3.29-11.43)
[2023-04-15 11:53] LABS: Amphetamines Screen Urine Positive (Negative); Barbiturates Screen Urine Negative (Negative); Benzodiazepines Screen Urine Negative (Negative); Cocaine Screen Urine Negative (Negative); Opiate Screen Urine Positive (Negative); PCP Screen Urine Negative (Negative); THC Screen Urine Positive (Negative)
[2023-04-15 12:05] LABS: Alanine Aminotransferase 17 U/L (0-41); Albumin Level 3.1 g/dL (3.5-5.2); Alkaline Phosphatase 127 U/L (40-130); Anion Gap 12.8 (5-19); Aspartate Amino Transferase 27 U/L (0-40); Blood Urea Nitrogen 19 mg/dL (8-23); Calcium 8.2 mg/dL (8.5-10.5); Carbon Dioxide 24 mmol/L (22-29); Chloride 100 mmol/L (98-107); Creatinine Clr Calc Pharmacy 73.7088; Globulin 3.1 g/dL (1.3-4.6); Glomerular Filtration Rate 96.1 mL/min (90-130); Glucose 102 mg/dL (65-115); Magnesium 1.8 mg/dL (1.7-2.3); Osmolality Calculated 278 mOsm/kg (285-295); Potassium 3.8 mmol/L (3.5-5.1); Sodium 133 mmol/L (136-145); Total Bilirubin 0.8 mg/dL (0.15-1.2); Total Protein 6.2 g/dL (6.6-8.7)
[2023-04-15 12:13] LABS: Alcohol Level < 10 mg/dL (0-10)
--- NOTE | 2023-04-15 12:26 | PC.NURSE ---
ad copy writer assumed care of pt at 1200 , report from Elisha Sanches.
--- NOTE | 2023-04-15 12:30 | PC.NURSE ---
Attempt to notify next of kin and person to notify unsuccessful.
--- NOTE | 2023-04-15 12:33 | PC.NURSE ---
Next of kin returned call to er, nurse notified of pending discharge, family to call again for update.
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
== END 2023-04-15 19:40 | disposition home or self-care (01) ==
PROVIDERS: Emergency Provider Family Medicine
DX: Z04.1 Encounter for examination and observation following transport accident (principal); F15.10 Other stimulant abuse, uncomplicated; J44.9 Chronic obstructive pulmonary disease, unspecified; Z86.19 Personal history of other infectious and parasitic diseases; Z87.891 Personal history of nicotine dependence; V89.2XXA Person injured in unspecified motor-vehicle accident, traffic, initial encounter
CPT/HCPCS: 70450; 71260; 72125; 73590; 74177; 80053; 80306; 80307; 81003; 83735; 85025; 99285; Q9967

== ENCOUNTER 2023-04-27 11:40 | Inpatient (IN) | payer OTHER, SELFPAY ==
[2023-04-27] VITALS (9 sets, daily range): BP systolic 102–134; BP diastolic 64–81; PULSE 75–95; RESP 15–22; TEMP 36.3–37.1; O2SAT 95–98; BMI 18.6
--- NOTE | 2023-04-27 11:45 | XR_ITS ---
WS: [id number] Portable AP upright chest, 04/27/2023 Clinical Data: cp Comparison: None. Findings: There is a probable right pleural effusion. There may be a small loculated right pneumothor ax. There is patchy opacity in the right midlung may represent atelectasis and/or pneumonia. The left lung is clear.. The heart is normal. The pulmonary vascularity is not increased. There are clips in the right upper quadrant from a cholecystectomy. Impression: 1. Patchy opacity in right lower chest which probably represents a right pleural effusion. 2. Patchy opacity in right midlung which may represent atelectasis and/or pneumonia. 3. Possible small loculated right lower pneumothorax.
--- NOTE | 2023-04-27 11:46 | ED_ITS ---
HPI - Medical Clearance 2 General: Chief complaint: Medical Clearance Stated complaint: medical eval Time Seen by Provider: 04/27/23 11:41 Source: patient and police Mode of arrival: ambulatory Limitations: no limitations History of Present Illness: 67-year-old male who is here with police he was arrested last night he is got a history of hep C and cirrhosis he had been complaining of abdominal pain today right-sided abdominal pain he has a history of a hernia as well. Patient was brought in for fit for confinement Review of Systems 2 Const: Denies: fever(s), chills, body aches or change in appetite ENMT: Denies: throat pain or dental pain Card: Denies: chest pain Resp: Denies: dyspnea GI: Reports: abdominal pain; Denies: nausea, vomiting or diarrhea Musc: Denies: neck pain or back pain Skin/Breast: Denies: rash Neuro: Denies: headache(s) PFSH ED 2 PFSH: Medical History Scoliosis COPD (chronic obstructive pulmonary disease) Anemia GI bleeding Hepatitis C Liver cirrhosis Acute urinary retention Surgical History Hx of cholecystectomy History of back surgery Family History Father CAD (coronary artery disease) Social History Smoking and tobacco/nicotine status: former use of tobacco/nicotine Alcohol intake: never Marital status: Current occupational status: disabled Physical Exam 2 Const: COMMON NORMALS: no acute distress, patient oriented x3 and healthy appearing HENMT: COMMON NORMALS: normocephalic and atraumatic HEAD & SCALP: n ormocephalic and atraumatic Eye: COMMON NORMALS: Equal, round and reactive pupils present and EOMs intact bilaterally PUPIL: Yes Equal, round and reactive pupils present Neck/C-Spine: COMMON NORMALS: full ROM and supple Chest: COMMONS NORMALS: normal inspection of the chest and normal palpation of entire chest wall Resp: COMMON NORMALS: normal respiratory effort, No retractions, No use of accessory muscles and clear to auscultation bilaterally AUSCULTATION: clear to auscultation bilaterally Cardio: COMMON NORMALS: regular rate, regular rhythm and No murmurs present (Cardio) RATE: regular rate RHYTHM: regular rhythm GI: COMMON NORMALS: Normal to inspection, nondistended, normoactive bowel sounds present, Soft to palpation, non-tender and no masses PALPATION: Yes Soft to palpation Extremity: COMMON NORMALS: normal to inspection and full ROM Neuro: COMMON NORMALS: patient oriented x3, moves all extremities and no focal motor deficits Psych: COMMON NORMALS: mental status grossly normal, Normal thought process present and cooperative THOUGHT PROCESS: Normal thought process present Skin: COMMON NORMALS: no rashes or lesions noted and no wounds GENERAL SKIN EXAM: no rashes or lesions noted Course 2 Vital Signs: Vital signs: Vital Signs Temperature 98.8 F 04/27/23 11:42 Pulse Rate 86 04/27/23 11:42 Respiratory Rate 16 04/27/23 11:42 Blood Pressure 129/70 04/27/23 11:42 Pulse Oximetry 97 04/27/23 11:42 Oxygen Delivery Me thod Room Air 04/27/23 11:42 MDM - Medical Clearance Medical Decision Making Patient presents here with abdominal pain he does have ascites but CT chest showed worsening pleural effusion here I spoke to the hospitalist will admit at this time start antibiotics likely pulmonology consult as well. Medical Records I reviewed the patient's medical records. Lab Data I reviewed the patient's lab results. 04/27/23 12:12 04/27/23 12:12 Laboratory Results WBC 8.66 10^3/uL (3.29-11.43) 04/27/23 12:12 RBC 4.00 10^6/uL (3.85-5.65) 04/27/23 12:12 Hgb 12.20 g/dL (11.27-16.99) 04/27/23 12:12 Hct 36.5 % (37-53) L 04/27/23 12:12 MCV 91.3 fl (82-101) 04/27/23 12:12 MCH 30.5 pg (27-33) 04/27/23 12:12 MCHC 33.4 g/dL (30-55) 04/27/23 12:12 RDW 13.4 % (12.1-15.1) 04/27/23 12:12 Plt Count 118 10^3/cmm (157-399) L 04/27/23 12:12 MPV 9.7 fL (7.4-10.4) 04/27/23 12:12 Neut % (Auto) 78.3 % 04/27/23 12:12 Lymph % (Auto) 9.1 % 04/27/23 12:12 [place] % (Auto) 9.5 % 04/27/23 12:12 Eos % (Auto) 2.1 % 04/27/23 12:12 Baso % (Auto) 0.5 % 04/27/23 12:12 Neut # (Auto) 6.79 10^3/uL (1.8-7.7) 04/27/23 12:12 Lymph # (Auto) 0.8 10^3/uL (0.8-4.8) 04/27/23 12:12 [place] # (Auto) 0.8 10^3/uL (0.2-0.9) 04/27/23 12:12 Eos # (Auto) 0.2 10^3/uL (0.0-0.8) 04/27/23 12:12 Baso # (Auto) 0.0 10^3/uL (0.0-0.1) 04/27/23 12:12 Nucleated RBC % (auto) 0 % 04/27/23 12:12 Nucleated RBCs # 0.0 /100WBC 04/27/23 12:12 Sodium 132 mmol/L (136-145) L 04/27/23 12:12 Potassium 4.3 mmol/L (3.5-5.1) 04/27/23 12:12 Chloride 98 mmol/L (98-107) 04/27/23 12:12 Carbon Dioxide 25 mmol/L (22-29) 04/27/23 12:12 Anion Gap 13.3 (5-19) 04/27/23 12:12 BUN 19 mg/dL (8-23) 04/27/23 12:12 Creatinine 0.9 mg/dL (0.7-1.2) 04/27/23 12:12 GFR Calculation 83.9 mL/min (90-130) L 04/27/23 12:12 Glucose 102 mg/dL (65-115) 04/27/23 12:12 Calculated Osmolality 276 mOsm/kg (285-295) L 04/27/23 12:12 Calcium 8.8 mg/dL (8.5-10.5) 04/27/23 12:12 Total Bilirubin 0.7 mg/dL (0.15-1.2) 04/27/23 12:12 AST 28 U/L (0-40) 04/27/23 12:12 ALT 17 U/L (0-41) 04/27/23 12:12 Alkaline Phosphatase 136 U/L (40-130) H 04/27/23 12:12 Total Protein 6.6 g/dL (6.6-8.7) 04/27/23 12:12 Albumin 3.2 g/dL (3.5-5.2) L 04/27/23 12:12 Globulin 3.4 g/dL (1.3-4.6) 04/27/23 12:12 Lipase 41 U/L (13-60) 04/27/23 12:12 All radiology interpretation(s) finalized by discharge EKG Data EKG 1: I personally reviewed and interpreted this EKG as follows: EKG interpretation date: 04/27/23 EKG interpretation time: 11:58 Interpretation: nsr ht [address] or t wave abnormalities qrs 86 qtc 407 Discharge Plan Discharge Patient Disposition: Admitted As Inpatient Clinical Impression: Liver cirrhosis, Pleural effusion Condition: Stable Prescriptions: No Action gabapentin 300 mg capsule 900 mg PO BID Artificial Tears (cmc) 1 % drops 1 drp ophthalmic (eye) QID ferrous sulfate 325 mg (65 mg iron) tablet 325 mg PO DAILY PRN (Reason: unknown) furosemide 20 mg tablet 20 mg PO DAILY PRN (Reason: Edema) potassium chloride 20 mEq tablet extended release 20 meq PO QAM pantoprazole 40 mg tablet,delayed release (DR/EC) 40 mg PO BID multivitamin Tablet 1 tab PO DAILY sildenafil 100 mg Tablet 100 mg PO PRN PRN (Reason: Erectile Dysfunction) trazodone 100 mg Tablet 50 mg PO BEDTIME PRN (Reason: Insomnia) acyclovir 200 mg Capsule 200 mg PO DAILY fluticasone propion-salmeterol [Advair Diskus] 100-50 mcg/dose Blister With Device 1 inh INHALATION BID testosterone cypionate 200 mg/mL Oil 200 mg IM Q14D fluticasone propionate [Flonase] 50 mcg/actuation [place],Suspension 1 - 2 spray INTRANASAL DAILY PRN (Reason: Allergy Symptoms) cholecalciferol (vitamin D3) [Vitamin D3] 50 mcg (2,000 unit) Capsule 100 mcg PO BID Spiriva Respimat 2.5 mcg/actuation Mist 2 puff INHALATION DAILY tamsulosin 0.4 mg capsule 0.4 mg PO BEDTIME diclofenac sodium 75 mg tablet,delayed release (DR/EC) 75 mg PO Q12H PRN (Reason: pain) Qty: 20 0RF bupropion HCl 150 mg Tablet Sustained-Release 12 Hr 150 mg PO BID carvedilol 3.125 mg Tablet 3.125 mg PO BID Rx Instructions: must administer with a meal/food spironolactone 50 mg Tablet 50 mg PO DAILY Ensure Plus Liquid 1 ea PO BID cyclosporine 0.05 % Drops 1 drp ophthalmic (eye) Q12H [facility] [Occupational Therapist] - Coding Level of Care Code ED Corrections Identification Technician for Eliseo Johns
--- NOTE | 2023-04-27 11:46 | ECG_ITS ---
[facility] Test Date: 2023-04-27 Pat Name: Gee Dobson Department: Room: Gender: Male Nocturnist Physician: : [id number] Requested By: Angelica Medina Order Number: [id number] Evelyn MD: Rahul Parisi M.D. Measurements Intervals [place] Rate: 82 P: 39 SC: 156 QRS: 48 QRSD: 86 T: 51 QT: 368 QTc: 431 Interpretive Statements SINUS RHYTHM LOW QRS VOLTAGE IN PRECORDIAL LEADS [QRS DEFLECTION < 1.0 mV IN CHEST LEADS] Compared to ECG 07/12/2016 11:40:44 Low QRS voltage now present Electronically Signed On 04-27-2023 16:02:41 OPERATIONS SUPERINTENDENT by Rahul Parisi M.D. [id number]
--- NOTE | 2023-04-27 12:03 | PC.PHAR ---
[facility]ED [facility] 04/27/23 12 NOON
--- NOTE | 2023-04-27 12:16 | CT_ITS ---
WS: [id number] CTA CHEST WITH CT ABDOMEN AND PELVIS. HISTORY: Short of breath, abdominal pain. TECHNIQUE: CT angiogram is performed through the chest. Additional imaging is performed through the a bdomen and pelvis with IV contrast. Sagittal and coronal reformats have been submitted. MIP imaging also reviewed. All CT scans at [facility] use at least one of these dose optimization techniqu es: automated exposure control; mA and/or kV adjustment per patient size (includes targeted exams whe re dose is matched to clinical indication); or iterative reconstruction. Contrast: Omnipaque 350; 95 cc IV. DLP: 681.91 mGy.cm COMPARISON: 04/15/2023 Chest CTA: Adequate opacification of the pulmonary arteries. No filling defect or pulmonary embolism. Mild atherosclerosis aorta. No dissection. Mild to moderate paraseptal emphysema. Reidentified is th e compressive atelectasis in the RIGHT lower lobe. Moderate-sized RIGHT pleural effusion has slightly increased in size since the prior study. Pleural fluid extends along the major fissure may be partia lly loculated. There is a loculated component of fluid along the medial RIGHT thorax. Very small laye ring LEFT pleural effusion. Increased soft tissue extends into the posterior mediastinum. Reidentifie d are small mediastinal and hilar lymph nodes. The largest is subcarinal as described on the prior st udy measuring up to 1.6 cm. Numerous varicosities are noted in the paraesophageal region extending th rough the GE junction. Abdomen CT: Severe cirrhotic changes within the liver. Portal vein remains patent. Prior cholecystect esteban. Spleen is enlarged measuring 15.0 cm in length. Atrophic pancreas. No adrenal mass. No renal obs truction. Mild atherosclerosis aorta. Reidentified are numerous varices surround the distal esophagus into the gastrohepatic ligament and the gastrosplenic ligament. Omental and mesenteric varices are a lso noted. There is a small amount of ascites throughout the peritoneal cavity. Similar to the prior study. New progression of fluid distended small bowel with mucosal hyperemia. There is diffuse wall thickeni ng and fluid distended small bowel. Colon is not distended. There is no free air identified. No focal transition point. Pelvic CT: Free fluid in the pelvis. Urinary bladder is negative. IMPRESSION: 1. No pulmonary embolism. 2. Compressive atelectasis RIGHT lower lobe. 3. Moderate size RIGHT pleural effusion has slightly increased in size since the prior study. Locula yusuf component is noted. 4. New small LEFT pleural effusion since 04/15/2023 5. Severe cirrhotic changes within the liver. 6. Extensive varices throughout the abdomen and pelvis. 7. Small amount of ascites and anasarca throughout the abdomen and pelvis as on the prior study. 8. There is new diffuse small bowel dilatation with fluid and mesenteric enhancement and submucosal edema. These changes can be seen with infectious disease, portal venous hypertension and ischemia. No thrombus is identified within the mesenteric arteries. 9. No free air. 10. Prior cholecystectomy. Notified Angelica Medina MD at 04/27/2023 1:58 PM.
[2023-04-27 12:29] LABS: Basophils % 0.5 %; Eosinophils # 0.2 10^3/uL (0.0-0.8); Eosinophils % 2.1 %; Hematocrit 36.5 % (37-53); Lymphocytes # 0.8 10^3/uL (0.8-4.8); Lymphocytes % 9.1 %; Mean Corpuscular HGB Conc 33.4 g/dL (30-55); Mean Corpuscular Hemoglobin 30.5 pg (27-33); Mean Corpuscular Volume 91.3 fl (82-101); Mean Platelet Volume 9.7 fL (7.4-10.4); Monocytes # 0.8 10^3/uL (0.2-0.9); Monocytes % 9.5 %; Neutrophils # 6.79 10^3/uL (1.8-7.7); Neutrophils % 78.3 %; Nucleated Red Blood Cells % 0 %; Platelet Count 118 10^3/cmm (157-399); Red Cell Distribution Width 13.4 % (12.1-15.1); White Blood Count 8.66 10^3/uL (3.29-11.43)
[2023-04-27 12:46] LABS: Alanine Aminotransferase 17 U/L (0-41); Albumin Level 3.2 g/dL (3.5-5.2); Alkaline Phosphatase 136 U/L (40-130); Anion Gap 13.3 (5-19); Aspartate Amino Transferase 28 U/L (0-40); Blood Urea Nitrogen 19 mg/dL (8-23); Calcium 8.8 mg/dL (8.5-10.5); Carbon Dioxide 25 mmol/L (22-29); Chloride 98 mmol/L (98-107); Globulin 3.4 g/dL (1.3-4.6); Glomerular Filtration Rate 83.9 mL/min (90-130); Glucose 102 mg/dL (65-115); Lipase 41 U/L (13-60); Osmolality Calculated 276 mOsm/kg (285-295); Potassium 4.3 mmol/L (3.5-5.1); Sodium 132 mmol/L (136-145); Total Bilirubin 0.7 mg/dL (0.15-1.2); Total Protein 6.6 g/dL (6.6-8.7)
[2023-04-27] MEDS: iohexol 350 mg/mL 500 mL Btl (per mL) IV (13:17)
--- NOTE | 2023-04-27 13:28 | PC.PHAR ---
PT FAMILY MEMBER DOES NOT ANSWER HIS PHONE. FAXED THE DC FOR MEDICATION LIST. SEVERAL OF HIS MEDS ARE NOT [facility] BUT I WAS UNCOMOFORTABLE REMOVING ALL OF THEM FROM HIS CHART. PT CAME IN TO [facility] IN THE MIDDLE OF THE NIGHT AND HAS NOT BEEN GIVEN ANY MEDS. PER OFFICER SITTING IN ROOM. SHE SAID THEY ATTEMPTED TO GIVE INHALER PRIOR TO COURT AND HE REFUSED IT. HE LATER REQUESTED AN INHALER. 04/27/23
[2023-04-27] MEDS: piperacillin-tazobactam 3.375 GM in sodium chloride 0.9% (plus) 50 ML IV ×2 (13:47→20:11)
[2023-04-27] MEDS: vancomycin 1,000 MG in sodium chloride 0.9% 250 ML 250 MG IV (14:26)
--- NOTE | 2023-04-27 14:48 | P.HP_ITS ---
Providers/Chief Complaint 2 Primary Care Provider: Veornica Bassett MD Chief Complaint: medical eval History of Present Illness Gee Dobson is a 67 year old male with past medical history of known liver cirrhosis, hepatitis C, GI bleeding, esophageal varices, COPD, pleural effusion presented to the hospital along with law enforcement for medical clearance for confinement. CT chest abdomen pelvis was done which showed 1. No pulmonary embolism. 2. Compressive atelectasis RIGHT lower lobe. 3. Moderate size RIGHT pleural effusion has slightly increased in size since the prior study. Loculated component is noted. 4. New small LEFT pleural effusion since 04/15/2023 5. Severe cirrhotic changes within the liver. 6. Extensive varices throughout the abdomen and pelvis. 7. Small amount of ascites and anasarca throughout the abdomen and pelvis as on the prior study. 8. There is new diffuse small bowel dilatation with fluid and mesenteric enhancement and submucosal edema. These changes can be seen with infectious disease, portal venous hypertension and ischemia. No thrombus is identified within the mesenteric arteries. 9. No free air. 10. Prior cholecystectomy. Labs show platelets 118, WBC 8.6, hemoglobin 12.0, sodium 132, creatinine 0.9, potassium 4.3, AST ALT within normal limits, albumin 3.2. Patient given vancomycin and Zosyn and being admitted at this time for pleural effusion. Patient complains of pain when taking a deep breath and otherwise feels okay. When asked about abdominal pain he said yes it hurts and then started moaning. Prior to me entering the room he was resting comfortably. A few minutes later he also seemed to be resting comfortably. Unsure if he is being truthful at this time. Upon auscultation of abdomen he did not complain of any pain when I pressed my stethoscope however did jump with pain with superficial palpation of hand. Mostly answers yes to any question asked. Medications/Allergies Home Medications Medication Instructions Recorded Confirmed Last Taken Type multivitamin 1 tab PO DAILY 10/19/20 04/27/23 Unknown History pantoprazole 40 mg tablet,delayed 40 mg PO BID 10/19/20 04/27/23 02/11/21 History release carboxymethylcellulose sodium 1 % 1 drp ophthalmic (eye) QID dry eyes 11/19/20 04/27/23 Unknown History eye drops (Artificial Tears (carboxymethylcellulose)) ferrous sulfate 325 mg (65 mg 325 mg PO DAILY PRN unknown 11/19/20 04/27/23 Unknown History iron) tablet furosemide 20 mg tablet 20 mg PO DAILY PRN Edema 11/19/20 04/27/23 Unknown History gabapentin 300 mg capsule 900 mg PO BID 11/19/20 04/27/23 02/11/21 History potassium chloride 20 mEq 20 meq PO QAM 11/19/20 04/27/23 Unknown History tablet,extended release acyclovir 200 mg capsule 200 mg PO DAILY 02/12/21 04/27/23 Unknown History cholecalciferol (vitamin D3) 50 100 mcg PO BID 02/12/21 04/27/23 Unknown History mcg (2,000 unit) capsule (Vitamin D3) fluticasone 100 mcg-salmeterol 50 1 inh inhalation BID 02/12/21 04/27/23 Unknown History mcg/dose blistr powdr for inhalation (Advair Diskus) fluticasone propionate 50 1 - 2 spray intranasal DAILY PRN 02/12/21 04/27/23 Unknown History mcg/actuation nasal Allergy Symptoms spray,suspension sildenafil 100 mg tablet 100 mg PO PRN PRN Erectile 02/12/21 04/27/23 Unknown History Dysfunction tamsulosin 0.4 mg capsule 0.4 mg PO BEDTIME 02/12/21 04/27/23 02/11/21 History testosterone cypionate 200 mg/mL 200 mg IM Q14D 02/12/21 04/27/23 02/04/21 History intramuscular oil tiotropium bromide 2.5 2 puff inhalation DAILY 02/12/21 04/27/23 Unknown History mcg/actuation mist for inhalation (Spiriva Respimat) trazodone 100 mg tablet 50 mg PO BEDTIME PRN Insomnia 02/12/21 04/27/23 Unknown History diclofenac sodium 75 mg 75 mg PO Q12H PRN pain #20 tabs 04/15/23 04/27/23 Unknown Rx tablet,delayed release bupropion HCl 150 mg tablet,12 hr 150 mg PO BID 04/27/23 04/27/23 Unknown History sustained-release carvedilol 3.125 mg tablet 3.125 mg PO BID 04/27/23 04/27/23 Unknown History cyclosporine 0.05 % eye drops 1 drp ophthalmic (eye) Q12H 04/27/23 04/27/23 Unknown History food supplemt, lactose-reduced 1 ea PO BID 04/27/23 04/27/23 Unknown History spironolactone 50 mg tablet 50 mg PO DAILY 04/27/23 04/27/23 Unknown History Allergies Allergy/AdvReac Type Severity Reaction Status Date / Time No Known Allergies Allergy Verified 10/15/21 10:41 PFSH Acute 2 PFSH: Medical History Scoliosis COPD (chronic obstructive pulmonary disease) Anemia GI bleeding Hepatitis C Liver cirrhosis Acute urinary retention Surgical History Hx of cholecystectomy History of back surgery Family History Father CAD (coronary artery disease) Social History Smoking and tobacco/nicotine status: former use of tobacco/nicotine Alcohol intake: never Marital status: Current occupational status: disabled Vitals/I&O/Wt Last Vital Signs Temp 98.8 F 04/27/23 11:42 Pulse 86 04/27/23 11:42 Resp 16 04/27/23 11:42 BP 129/70 04/27/23 11:42 Pulse Ox 97 04/27/23 11:42 O2 Del Method Room Air 04/27/23 11:42 04/26/23 04/27/23 04/27/23 22:59 06:59 14:59 Intake Total 50 / 50 Balance 50 / 50 Weight last 48 hrs Weight 58.967 kg Physical Exam 2 Narrative: General: Alert oriented x3, patient seen laying in bed and unkept appearance. Resting comfortably. Appears cachectic HEENT: Normocephalic, atraumatic, EOMI, breathing room air Cardio: Regular rate rhythm, normal S1-S2, Respiratory: Good bilateral air entry, no wheezes no rhonchi appreciated GI: Abdomen soft, distended, nontender to palpation but is at times tender to palpation. Unsure if patient being truthful. Bowel sounds positive all 4 quadrants. Extremities: no edema, no cyanosis Data 04/27/23 12:12 04/27/23 12:12 A&P Assessment and plan (1) Liver cirrhosis: (2) GI bleeding: (3) Hepatitis C: (4) COPD (chronic obstructive pulmonary disease): (5) Pleural effusion: Plan #Right pleural effusion, loculated component #Small left pleural effusion #History of liver cirrhosis #History hepatitis C #History of esophageal varices and GI bleed?hemoglobin stable at this time #Diffuse small bowel dilatation with submucosal edema #Thrombocytopenia #History of COPD, not in exacerbation at this time ? Check lactic acid. Most likely CT findings of small bowel dilatation and submucosal edema are secondary to cirrhosis and chronic portal venous hypertension. Ischemia cannot be ruled out. Patient is not acidotic. Will check lactic acid. He denies any diarrhea at this time. There are similar changes on previous CTs as well. We will continue to monitor for now. Minimal ascites seen. Discussed with radiology. CT abdomen findings are similar to prior scans. We will do ultrasound abdomen and do paracentesis if required. ? Hemoglobin stable at this time at 12.0. Not having a current active GI bleed. ? Consult pulmonology for loculated right pleural effusion. This is also been similar on previous CTs however slightly increased in size at this time. Patient may require a chest tube for drainage or potential consultation with CT surgery eventually. ? Continue on Vanco and Zosyn. Empyema must be ruled out. ? Check sputum culture Gram stain ? Check blood cultures ? No IV fluids needed at this time ? Continue on cardiac diet ? Continue home medications at this time acyclovir, carvedilol, furosemide, Protonix twice daily, spironolactone, potassium. ? Thrombocytopenia most likely secondary to underlying liver cirrhosis. No evidence of bleed at this time. ? Consult pulmonology ? DuoNeb every 6 hours as needed Full code DVT prophylaxis: SCDs. Pharmacological contraindicated at this time Attestations 2 Medical Necessity Statement*: Admission for management of loculated pleural effusion. Patient will probably need a thoracentesis versus chest tube placement. Diagnoses Liver cirrhosis K74.60 GI bleeding K92.2 Hepatitis C B19.20 COPD (chronic obstructive pulmonary disease) J44.9 Pleural effusion J90
[2023-04-27 15:12] LABS: NT Pro B Type Natriuretic Pept 383 pg/mL (0-125); Procalcitonin 0.05 ng/mL (0-0.5)
[2023-04-27 15:20] LABS: Lactic Sepsis W/Reflex 1.1 mmol/L (0.5-2.2)
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
--- NOTE | 2023-04-27 17:11 | XRR_ITS ---
PROCEDURE INFORMATION: Exam: XR Chest Exam date and time: 04/27/2023 5:48 PM Age: 67 years old Clinical indication: Screening exam; Other screening; Additional info: Post right side thoracentesis - R/O ptx TECHNIQUE: Imaging protocol: Radiologic exam of the chest. Views: 1 view. COMPARISON: CT angio chest w abd pel w con 04/27/2023 1:13 PM FINDINGS: Tubes, catheters and devices: Overlying monitor leads. Lungs: Improved appearance of right lung base opacity or right pleural effusion is seen post right thoracentesis. Mild residual ill-defined opacity lower right lung and mild residual fluid or thickening minor fissure. No pneumothorax is seen post thoracentesis. Pleural spaces: See Lungs finding. Heart/Mediastinum: Cardiac size is within normal limits. Bones/joints: Visualized osseous structures show no acute abnormality. XR/XR chest 1V portable [id number] IMPRESSION: No pneumothorax is seen post thoracentesis on the right.
--- NOTE | 2023-04-27 17:14 | P.PCN_ITS ---
Procedure/Consent Time out: Time Out Performed: Yes Consent: Consent for Procedure: Consent obtained from patient, Risks & Benefits reviewed and Agrees to proceed with procedure Procedure Narrative: Pulmonary & Critical Care Medicine Procedure - Ultrasound guided Thoracentesis Procedure: CPT code 80031 thoracentesis, needle or catheter, aspiration of the pleural space; with imaging guidance Indication: Worsening right pleural effusion. C56.2 Violin Teacher(s): José Migeul Rapp MD [facility] Clinical history: 67-year-old male patient with past medical history of liver cirrhosis secondary to hepatitis C and signs of portal hypertension and ascites- has chronic right-sided pleural effusion which appears to be worsening on CT chest Technique: The study was performed in an ACR accredited facility. Medication reconciliation form reviewed and any changes related this procedure resolved. Report: The procedure for thoracentesis was explained to the patient including the risks, benefits and possible complications. The patient was given the opportunity to ask questions, wished to proceed, and signed the written informed consent form. Using ultrasound guidance, a safe route of access was identified into the right pleural space. The site was then prepped and draped using maximal sterile barrier technique. The 1% lidocaine was used for local anesthetic. With sonographic guidance, a 6 [place] thoracentesis catheter was placed with return of 5 cc straw-colored pleural fluid. The catheter was slipped into the pleural cavity and approximately 500 cc of straw-colored pleural fluid was removed. The patient tolerated the procedure well without any immediate complications. Impression: 1. Successful ultrasound-guided right t horacentesis with removal of approximately 500 cc straw-colored pleural fluid. ICD-10 code-J90 pleural effusion, not elsewhere classified Acute Procedures Epistaxis Control: Time out performed: Yes
[2023-04-27] MEDS: diclofenac 75 mg DR Tablet PO (18:13)
[2023-04-27] MEDS: gabapentin 300 mg Capsule 900 MG PO (18:19)
[2023-04-27] MEDS: carvedilol 3.125 mg Tablet PO (18:19)
[2023-04-27] MEDS: pantoprazole DR 40 mg Tablet PO (18:19)
[2023-04-27] MEDS: cholecalciferol (vitamin D3) 5,000 unit Tablet 5000 UNIT PO (18:20)
[2023-04-27] MEDS: buPROPion SR (12 HR) 150 mg Tablet PO (18:22)
[2023-04-27 18:54] LABS: Apprearance, Body Fluid CLOUDY; Color, Body Fluid PALE YELLOW; Cyto Order Verification Order Verified; PATH Referral YES
[2023-04-27 18:55] LABS: Fluid Laterality PLEURAL FLUID
[2023-04-27 19:32] LABS: Body Fluid Polynuclear #Cells 0.666; Body Fluid WBC 2227 /uL; Monocytes # Body Fluid 1.561
[2023-04-27 19:53] LABS: Albumin Body Fluid 1.8 g/dL; Creatinine Body Fluid 0.62 (0.7-1.2)
[2023-04-27 19:54] LABS: LDH Pleural Fluid 182 U/L; Total Protein Pleural Fluid 3.3 g/dL; Triglycerides, Pleural Fluid 26 mg/dL
[2023-04-27] MEDS: tamsulosin 0.4 mg Capsule PO (20:12)
[2023-04-27] MEDS: albuterol 2.5 mg/3 mL Neb INHALATION (21:00)
[2023-04-27] MEDS: budesonide 0.5 mg/2 mL Neb INHALATION (21:00)
[2023-04-28] VITALS (7 sets, daily range): BP systolic 85–94; BP diastolic 48–58; PULSE 70–75; RESP 15–18; TEMP 36.5–36.7; O2SAT 94–96; BMI 19.1
[2023-04-28] MEDS: piperacillin-tazobactam 3.375 GM in sodium chloride 0.9% (plus) 50 ML IV ×2 (04:01→11:32)
[2023-04-28] MEDS: potassium chloride ER 20 mEq Tablet PO (05:32)
[2023-04-28 05:42] LABS: Basophils % 0.5 %; Eosinophils # 0.2 10^3/uL (0.0-0.8); Eosinophils % 3.6 %; Hematocrit 34.2 % (37-53); Lymphocytes # 0.7 10^3/uL (0.8-4.8); Lymphocytes % 11.6 %; Mean Corpuscular HGB Conc 33.3 g/dL (30-55); Mean Corpuscular Hemoglobin 30.2 pg (27-33); Mean Corpuscular Volume 90.7 fl (82-101); Mean Platelet Volume 9.3 fL (7.4-10.4); Monocytes # 0.7 10^3/uL (0.2-0.9); Monocytes % 11.1 %; Neutrophils % 72.9 %; Nucleated Red Blood Cells % 0 %; Platelet Count 98 10^3/cmm (157-399); Red Blood Count 3.77 10^6/uL (3.85-5.65); Red Cell Distribution Width 13.5 % (12.1-15.1); White Blood Count 6.04 10^3/uL (3.29-11.43)
[2023-04-28 06:00] LABS: Alanine Aminotransferase 15 U/L (0-41); Albumin Level 2.9 g/dL (3.5-5.2); Alkaline Phosphatase 123 U/L (40-130); Anion Gap 13.6 (5-19); Aspartate Amino Transferase 25 U/L (0-40); Blood Urea Nitrogen 20 mg/dL (8-23); Calcium 8.4 mg/dL (8.5-10.5); Carbon Dioxide 23 mmol/L (22-29); Chloride 102 mmol/L (98-107); Globulin 3.1 g/dL (1.3-4.6); Glomerular Filtration Rate 83.9 mL/min (90-130); Glucose 87 mg/dL (65-115); Osmolality Calculated 280 mOsm/kg (285-295); Potassium 4.6 mmol/L (3.5-5.1); Sodium 134 mmol/L (136-145); Total Bilirubin 0.8 mg/dL (0.15-1.2)
--- NOTE | 2023-04-28 06:00 | US_ITS ---
WS: [id number] INDICATION: Ascites TECHNIQUE: Ultrasound abdomen for paracentesis FINDINGS: Ultrasound abdomen for paracentesis. Small amount perihepatic ascites. Minimal amount of fl uid in the pericolic gutters. Fluid layering deep in the pelvis on the CT not seen on the ultrasound. IMPRESSION: Small amount of perihepatic ascites with a minimal amount of fluid in the paracolic gutte rs. Some fluid could be obtained for diagnostic laboratory purposes if indicated.
[2023-04-28] MEDS: acyclovir 400 mg Tablet 200 MG PO (08:02)
[2023-04-28] MEDS: carvedilol 3.125 mg Tablet PO (08:02)
[2023-04-28] MEDS: buPROPion SR (12 HR) 150 mg Tablet PO (08:02)
[2023-04-28] MEDS: spironolactone 25 mg Tablet 50 MG PO (08:02)
[2023-04-28] MEDS: pantoprazole DR 40 mg Tablet PO (08:02)
[2023-04-28] MEDS: multivitamin therapeutic Tablet 1 TAB PO (08:02)
[2023-04-28] MEDS: cholecalciferol (vitamin D3) 5,000 unit Tablet 5000 UNIT PO (08:03)
[2023-04-28] MEDS: gabapentin 300 mg Capsule 900 MG PO (08:03)
[2023-04-28] MEDS: albuterol 2.5 mg/3 mL Neb INHALATION ×2 (08:45→11:30)
[2023-04-28] MEDS: budesonide 0.5 mg/2 mL Neb INHALATION (08:45)
--- NOTE | 2023-04-28 11:06 | PC.CHAP ---
Pastoral Care Encounter/Spiritual Assessment Type of Contact [] Declined plate gauger visit [] Patient/Family/Request visit [] Outpatient visit [] Follow-up visit [] Physician referral [] Code/Alert [] Routine visit [] Staff referral [] Actively dying [x] Patient sleeping [] Family support [] [] Out of room [] Palliative care [] [] Receiving care in room [] Pre-surgical visit [] Trauma [] Long length of stay [] ICU visit [] Other: Relational/Emotional Strength [] Patient feels connected with others/family/visitors/staff [] Distress [] Loneliness/isolation [] Abandonment Spirituality of Patient [] Person of Dalila [] Attends Episcopalian of their Dalila [] Believes in Prayer [] Reads Bible or Restorationist materials [] There are Spiritual issues to be addressed [place] Interventions [] Prayer [] Active listening [] Non-anxious presence [] Spiritual/emotional support [] Crisis/trauma care [] Spiritual counseling [] Bereavement support [] Provided bereavement packet [] Provided Bible/devotional materials [] Provided toy/stuffed animal, coloring book to patient or family member [] Provided Communion [] Anointing/[place] [] Salvation [] Completed spiritual assessment [] Other: Impact on Illness or Injury [] Angry [] Fearful [] Anxious [] Often cries [] Exhaustion [] Unable to work [] Unable to attend taoism [] Unable to walk/stand [] Unable to read [] Unable to drive [] Unable to eat/drink [] Unable to sleep [] Unable to be with family [] Patient intubated [] Other: Summary Time spent with patient
--- NOTE | 2023-04-28 12:20 | P.DS_ITS ---
Discharge Providers Date of Admission: 04/27/23 14:19 Date of Discharge: April 28, 2023 Attending Provider at Admission: Ro Jimenez MD Attending Provider at Discharge: Ro Jimenez MD Primary Care Provider: Veronica Bassett MD Diagnoses at Discharge Discharge Diagnosis (1) Pleural effusion: Status: Acute (2) COPD (chronic obstructive pulmonary disease): Status: Chronic (3) Liver cirrhosis: Status: Chronic Qualifiers: Hepatic cirrhosis type: other cirrhosis Qualified Code(s): K74.69 - Other cirrhosis of liver Reason for Visit Reason for Visit: medical eval Brief History: Gee Dobson is a 67 year old male with past medical history of known liver cirrhosis, hepatitis C, GI bleeding, esophageal varices, COPD, pleural effusion presented to the hospital along with law enforcement for medical clearance for confinement. CT chest abdomen pelvis was done which showed 1. No pulmonary embolism. 2. Compressive atelectasis RIGHT lower lobe. 3. Moderate size RIGHT pleural effusion has slightly increased in size since the prior study. Loculated component is noted. 4. New small LEFT pleural effusion sinc e 04/15/2023 5. Severe cirrhotic changes within the liver. 6. Extensive varices throughout the abd omen and pelvis. 7. Small amount of ascites and anasarca throughout the abdomen and pelvis as on the prior study. 8. There is new diffuse small bowel dil atation with fluid and mesenteric enhancement and submucosal edema. These changes can be seen with infectious disease, portal venous hypertension and ischemia. No thrombus is identified within the mesenteric arteries. 9. No free air. 10. Prior cholecystectomy. Labs show platelets 118, WBC 8.6, hemoglobin 12.0, sodium 132, creatinine 0.9, potassium 4.3, AST ALT within normal limits, albumin 3.2. Patient given vancomycin and Zosyn and being admitted at this time for pleural effusion. Patient complains of pain when taking a deep breath and otherwise feels okay. When asked about abdominal pain he said yes it hurts and then started moaning. Prior to me entering the room he was resting comfortably. A few minutes later he also seemed to be resting comfortably. Unsure if he is being truthful at this time. Upon auscultation of abdomen he did not complain of any pain when I pressed my stethoscope however did jump with pain with superficial palpation of hand. Mostly answers yes to any question asked. Hospital Course Hospital Course Patient admitted for right pleural effusion loculated component which was an incidental finding. He did not complain of any significant symptoms. Please se e H&P for further details. Patient had thoracentesis done and it was found to be transudative. He can follow-up with his primary care doctor at this time. Paracentesis was also attempted for therapeutic purposes however there was not enough fluid to drain. Patient is at baseline at this time. Empyema has been ruled out. I will send patient home on 7 days of Augmentin for empiric coverage at this time. Patient to continue to follow-up with his primary care doctor. Discussed this with the patient and he is on board with the plan. We will discharge him home in stable condition at this time. Physical Exam Narrative: General: Alert oriented x3, patient seen laying in bed and unkept appearance. Resting comfortably. Appears cachectic HEENT: Normocephalic, atraumatic, EOMI, breathing room air Cardio: Regular rate rhythm, normal S1-S2, Respiratory: Good bilateral air entry, no wheezes no rhonchi appreciated GI: Abdomen soft, distended, nontender to palpation but is at times tender to palpation. Unsure if patient being truthful. Bowel sounds positive all 4 quadrants. Extremities: no edema, no cyanosis Discharge Data Studies Completed and Pending Completed Studies During Hospitalization Category Date Time Status CT angio chest w abd pel w con Stat Cat Scan 04/27/23 12:16 Completed XR chest 1V portable [id number] Stat Exams 04/27/23 11:45 Completed XR chest 1V portable [id number] Stat Exams 04/27/23 17:11 Completed US abdomen lmt fluid [id number] Routine Ultrasound 04/28/23 06:00 Completed Pending at discharge Category Date Time Status Blood Cultures ([facility]) Routine Lab 04/27/23 13:48 Received Blood Cultures ([facility]) Routine Lab 04/27/23 13:53 Received Body Fluid Culture & GS Routine Lab 04/27/23 14:55 Received Mycobacteria, Culture w/Fluor Routine Lab 04/27/23 14:55 Received Sputum Culture and Gram Stain Stat Lab 04/27/23 14:32 Uncollected Cytology [PTH] Routine Pth 04/27/23 18:19 Received Radiology Impressions Chest X-Ray 04/27/23 17:11 IMPRESSION: No pneumothorax is seen post thoracentesis on the right. Laboratory Results WBC 6.04 10^3/uL (3.29-11.43) 04/28/23 05:37 RBC 3.77 10^6/uL (3.85-5.65) L 04/28/23 05:37 Hgb 11.40 g/dL (11.27-16.99) 04/28/23 05:37 Hct 34.2 % (37-53) L 04/28/23 05:37 MCV 90.7 fl (82-101) 04/28/23 05:37 MCH 30.2 pg (27-33) 04/28/23 05:37 MCHC 33.3 g/dL (30-55) 04/28/23 05:37 RDW 13.5 % (12.1-15.1) 04/28/23 05:37 Plt Count 98 10^3/cmm (157-399) L 04/28/23 05:37 MPV 9.3 fL (7.4-10.4) 04/28/23 05:37 Neut % (Auto) 72.9 % 04/28/23 05:37 Lymph % (Auto) 11.6 % 04/28/23 05:37 [place] % (Auto) 11.1 % 04/28/23 05:37 Eos % (Auto) 3.6 % 04/28/23 05:37 Baso % (Auto) 0.5 % 04/28/23 05:37 Neut # (Auto) 4.40 10^3/uL (1.8-7.7) 04/28/23 05:37 Lymph # (Auto) 0.7 10^3/uL (0.8-4.8) L 04/28/23 05:37 [place] # (Auto) 0.7 10^3/uL (0.2-0.9) 04/28/23 05:37 Eos # (Auto) 0.2 10^3/uL (0.0-0.8) 04/28/23 05:37 Baso # (Auto) 0.0 10^3/uL (0.0-0.1) 04/28/23 05:37 Nucleated RBC % (auto) 0 % 04/28/23 05:37 Nucleated RBCs # 0.0 /100WBC 04/28/23 05:37 Differential Comment Cancelled 04/27/23 16:55 Sodium 134 mmol/L (136-145) L 04/28/23 05:37 Potassium 4.6 mmol/L (3.5-5.1) 04/28/23 05:37 Chloride 102 mmol/L (98-107) 04/28/23 05:37 Carbon Dioxide 23 mmol/L (22-29) 04/28/23 05:37 Anion Gap 13.6 (5-19) 04/28/23 05:37 BUN 20 mg/dL (8-23) 04/28/23 05:37 Creatinine 0.9 mg/dL (0.7-1.2) 04/28/23 05:37 GFR Calculation 83.9 mL/min (90-130) L 04/28/23 05:37 Glucose 87 mg/dL (65-115) 04/28/23 05:37 Calculated Osmolality 280 mOsm/kg (285-295) L 04/28/23 05:37 Lactic Acid 1.1 mmol/L (0.5-2.2) 04/27/23 12:12 Calcium 8.4 mg/dL (8.5-10.5) L 04/28/23 05:37 Magnesium 2.0 mg/dL (1.7-2.3) 04/28/23 05:37 Total Bilirubin 0.8 mg/dL (0.15-1.2) 04/28/23 05:37 AST 25 U/L (0-40) 04/28/23 05:37 ALT 15 U/L (0-41) 04/28/23 05:37 Alkaline Phosphatase 123 U/L (40-130) 04/28/23 05:37 NT-Pro-B Natriuret Pep 383 pg/mL (0-125) H 04/27/23 12:12 Total Protein 6.0 g/dL (6.6-8.7) L 04/28/23 05:37 Albumin 2.9 g/dL (3.5-5.2) L 04/28/23 05:37 Globulin 3.1 g/dL (1.3-4.6) 04/28/23 05:37 Lipase 41 U/L (13-60) 04/27/23 12:12 Procalcitonin 0.05 ng/mL (0-0.5) 04/27/23 12:12 Fluid Color Cancelled 04/27/23 16:55 Fluid Appearance Cancelled 04/27/23 16:55 Fluid Specific Grav Cancelled 04/27/23 16:55 Fluid pH Cancelled 04/27/23 16:55 Fluid WBC Cancelled 04/27/23 16:55 Fluid RBC Cancelled 04/27/23 16:55 Fluid Hematocrit 0.0 % 04/27/23 14:55 Fluid Tot Cell Count Cancelled 04/27/23 16:55 Fld Polynuclear WBCs # Cancelled 04/27/23 16:55 Fld Polynuclear WBCs % Cancelled 04/27/23 16:55 Fl Mononucl WBCs #(Auto) Cancelled 04/27/23 16:55 Fl Mononuclear % Auto Cancelled 04/27/23 16:55 Fld Crystal Laterality Cancelled 04/27/23 16:55 Fluid Glucose Cancelled 04/27/23 16:55 Fluid Total Protein Cancelled 04/27/23 16:55 Fluid Albumin Cancelled 04/27/23 16:55 Fluid LDH Cancelled 04/27/23 16:55 Fluid Amylase Cancelled 04/27/23 16:55 Fluid Creatinine 0.62 (0.7-1.2) L 04/27/23 14:55 Fluid Alk Phosphatase Cancelled 04/27/23 16:55 Fluid Cholesterol Cancelled 04/27/23 16:55 Fluid Triglycerides Cancelled 04/27/23 16:55 Fluid Uric Acid Cancelled 04/27/23 16:55 Pleural pH 8.00 (6.5-7.5) H 04/27/23 14:55 Pleural Total Protein 3.3 g/dL 04/27/23 14:55 Pleural LDH 182 U/L 04/27/23 14:55 Pleural Glucose 91.0 mg/dL 04/27/23 14:55 Pleural Amylase 60.0 U/L 04/27/23 14:55 Pleural Triglycerides 26 mg/dL 04/27/23 14:55 Vitals Last Vital Signs Temp 97.8 F 04/28/23 11:40 Pulse 72 04/28/23 11:40 Resp 16 04/28/23 11:40 BP 93/57 04/28/23 11:40 Pulse Ox 95 04/28/23 11:40 O2 Del Method Room Air 04/28/23 11:40 Discharge Plan Discharge Patient Disposition: Home Condition: Stable Prescriptions: Continued gabapentin 300 mg capsule 900 mg PO BID Artificial Tears (cmc) 1 % drops 1 drp ophthalmic (eye) QID ferrous sulfate 325 mg (65 mg iron) tablet 325 mg PO DAILY PRN (Reason: unknown) furosemide 20 mg tablet 20 mg PO DAILY PRN (Reason: Edema) potassium chloride 20 mEq tablet extended release 20 meq PO QAM pantoprazole 40 mg tablet,delayed release (DR/EC) 40 mg PO BID multivitamin Tablet 1 tab PO DAILY sildenafil 100 mg Tablet 100 mg PO PRN PRN (Reason: Erectile Dysfunction) trazodone 100 mg Tablet 50 mg PO BEDTIME PRN (Reason: Insomnia) acyclovir 200 mg Capsule 200 mg PO DAILY fluticasone propion-salmeterol [Advair Diskus] 100-50 mcg/dose Blister With Device 1 inh INHALATION BID testosterone cypionate 200 mg/mL Oil 200 mg IM Q14D fluticasone propionate 50 mcg/actuation [place],Suspension 1 - 2 spray INTRANASAL DAILY PRN (Reason: Allergy Symptoms) cholecalciferol (vitamin D3) [Vitamin D3] 50 mcg (2,000 unit) Capsule 100 mcg PO BID Spiriva Respimat 2.5 mcg/actuation Mist 2 puff INHALATION DAILY tamsulosin 0.4 mg capsule 0.4 mg PO BEDTIME diclofenac sodium 75 mg tablet,delayed release (DR/EC) 75 mg PO Q12H PRN (Reason: pain) Qty: 20 0RF bupropion HCl 150 mg Tablet Sustained-Release 12 Hr 150 mg PO BID spironolactone 50 mg Tablet 50 mg PO DAILY food supplemt, lactose-reduced Liquid 1 ea PO BID cyclosporine 0.05 % Drops 1 drp ophthalmic (eye) Q12H Discontinued carvedilol 3.125 mg Tablet 3.125 mg PO BID Rx Instructions: must administer with a meal/food Discharge Orders: Discharge Order (Routine); Ordered 04/28/23 Ordered By: Ro Jimenez Referrals: [facility] [Occupational Therapist] - 4-7 days Discharge Diet: Usual diet Discharge Activity: Resume usual activity Patient Instructions: Cirrhosis of the Liver (GEN), Hepatitis C (GEN), Pleural Effusion (GEN), Opioid Safety Discharge Attestations Time Spent in Discharge Care*: less than 30 min Quality Metrics Clinical Quality Measures [ No reported AMI, CVA or VTE this stay] Coding Level of Care Code Acute Code for Chg Fwd Diagnoses Pleural effusion J90 COPD (chronic obstructive pulmonary disease) J44.9 Other cirrhosis of liver K74.69 Hepatic cirrhosis type: other cirrhosis
== END 2023-04-28 15:22 | disposition home or self-care (01) | DRG 187 ==
LOC: ER 14:41 → MEDSURG 15:00
PROVIDERS: Admitting Provider Internal Medicine; Emergency Provider Emergency Medicine; PCP Family Medicine; Visit Provider Internal Medicine
DX: J90 Pleural effusion, not elsewhere classified (principal); K76.6 Portal hypertension; R18.8 Other ascites; Z87.891 Personal history of nicotine dependence; D69.59 Other secondary thrombocytopenia; Z53.09 Procedure and treatment not carried out because of other contraindication; J43.9 Emphysema, unspecified; M41.9 Scoliosis, unspecified; K74.69 Other cirrhosis of liver; Z86.19 Personal history of other infectious and parasitic diseases
CPT/HCPCS: 36415; 49083; 71045; 71275; 74177; 76705; 80053; 80503; 82042; 82150; 82570; 82945; 83605; 83615; 83690; 83735; 83880; 83986; 84145; 84157; 84478; 85014; 85025; 87015; 87040; 87070; 87075; 87116; 87205; 87206; 87801; 88112; 88305; 89050; 93005; 94640; 94664; 96365; 96366; 96367; 99285; J2543; J3370; J7050; J7613; J7626; J8499; Q9967

== ENCOUNTER 2023-07-22 22:25 | Emergency (ER) | payer OTHER, SELFPAY ==
[2023-07-22 22:26] VITALS: BP 127/72; PULSE 88; RESP 16; O2SAT 99
[2023-07-22 22:54] LABS: Basophils % 0.6 %; Eosinophils # 0.3 10^3/uL (0.0-0.8); Eosinophils % 5.8 %; Hematocrit 33.5 % (37-53); Lymphocytes # 0.6 10^3/uL (0.8-4.8); Lymphocytes % 12.2 %; Mean Corpuscular HGB Conc 33.1 g/dL (30-55); Mean Corpuscular Hemoglobin 30.4 pg (27-33); Mean Corpuscular Volume 91.8 fl (82-101); Monocytes # 0.6 10^3/uL (0.2-0.9); Monocytes % 10.9 %; Neutrophils # 3.62 10^3/uL (1.8-7.7); Neutrophils % 70.1 %; Nucleated Red Blood Cells % 0 %; Platelet Count 92 10^3/cmm (157-399); Red Blood Count 3.65 10^6/uL (3.85-5.65); White Blood Count 5.16 10^3/uL (3.29-11.43)
[2023-07-22 23:16] LABS: Alanine Aminotransferase 15 U/L (0-41); Albumin Level 3.4 g/dL (3.5-5.2); Alkaline Phosphatase 151 U/L (40-130); Anion Gap 14.1 (5-19); Aspartate Amino Transferase 25 U/L (0-40); Blood Urea Nitrogen 20 mg/dL (8-23); Calcium 8.8 mg/dL (8.5-10.5); Carbon Dioxide 24 mmol/L (22-29); Chloride 100 mmol/L (98-107); Creatinine Clr Calc Pharmacy 62.9989; Globulin 3.4 g/dL (1.3-4.6); Glomerular Filtration Rate 83.9 mL/min (90-130); Glucose 101 mg/dL (65-115); Osmolality Calculated 281 mOsm/kg (285-295); Potassium 4.1 mmol/L (3.5-5.1); Sodium 134 mmol/L (136-145); Total Bilirubin 0.4 mg/dL (0.15-1.2); Total Protein 6.8 g/dL (6.6-8.7)
[2023-07-22 23:18] VITALS: BP 116/73; PULSE 82; RESP 17; O2SAT 96
[2023-07-22 23:20] LABS: Acetaminophen < 5.0 ug/mL (10-30); Alcohol Level < 10 mg/dL (0-10); Salicylate < 0.3 mg/dL (3-10)
[2023-07-22 23:22] LABS: Add Urine Microscopic? NO; Charge for UA Resulting for Rev
[2023-07-22 23:29] LABS: Bilirubin Urine Neg (Negative); Blood Urine Neg (Negative); Glucose Urine UA Norm (Normal); Ketones Urine Negative (Negative); Leukocyte Esterase Urine Negative (Negative); Nitrate Urine Negative (Negative); Protein Urine Neg (Negative); Specific Gravity, Urine 1.005 (1.005-1.030); Urine Appearance Clear (CLEAR); Urine Color Yellow (Yellow); Urobilinogen Urine Neg (Negative); pH Urine 5 (5-7)
[2023-07-22 23:38] LABS: Amphetamines Screen Urine Positive (Negative); Barbiturates Screen Urine Negative (Negative); Benzodiazepines Screen Urine Negative (Negative); Cocaine Screen Urine Negative (Negative); Opiate Screen Urine Negative (Negative); PCP Screen Urine Negative (Negative); THC Screen Urine Positive (Negative)
--- NOTE | 2023-07-22 23:47 | W.ED.GENADLT ---
HPI - General Adult General: Chief complaint: General Medical Stated complaint: MHE Time Seen by Provider: 07/22/23 22:27 History of Present Illness: 67-year-old male patient evident with a history of COPD and esophageal varices. He presents with law enforcement for fit for confinement. He tells me that he has had bright red bleeding from his rectum for the past several days. He notes that this last happened a day and a half ago. He denies fever. He notes chronic abdominal pain. No vomiting. No fever. He does not use oxygen at home. Associated symptoms: Reports dyspnea (Chronic); Deny chest pain, nausea, rash, palpitations or vomiting Review of Systems Const: Denies: fever(s), chills or body aches Card: Denies: chest pain or palpitations Resp: Reports: dyspnea (Chronic) and non-productive cough; Denies: productive cough or wheezing GI: Reports: abdominal pain (Chronic) and hematochezia; Denies: nausea, vomiting or diarrhea Skin/Breast: Denies: rash PFSH ED PFSH: Medical History Scoliosis COPD (chronic obstructive pulmonary disease) Anemia GI bleeding Hepatitis C Liver cirrhosis Acute urinary retention Surgical History Hx of cholecystectomy History of back surgery Family History Father CAD (coronary artery disease) Social History Smoking and tobacco/nicotine status: former use of tobacco/nicotine Alcohol intake: never Marital status: Current occupational status: disabled Physical Exam Const: COMMON NORMALS: no acute distress GENERAL APPEARANCE: frail appearing (Mildly); not ill appearing HENMT: COMMON NORMALS: normocephalic, atraumatic and Normal external nose present HEAD & SCALP: normocephalic and atraumatic FACE & SINUS: normal facial exam and face symmetric NOSE: Normal external nose present Eye: COMMON NORMALS: Equal, round and reactive pupils present and EOMs intact bilaterally PUPIL: Yes Equal, round and reactive pupils present Neck/C-Spine: GENERAL: Yes trachea midline Chest: CHEST: Yes Symmetrical chest wall rise Resp: COMMON NORMALS: normal respiratory effort, No retractions, No use of accessory muscles and clear to auscultation bilaterally AUSCULTATION: clear to auscultation bilaterally Cardio: COMMON NORMALS: regular rate and regular rhythm RATE: regular rate RHYTHM: regular rhythm GI: PALPATION: Yes Tenderness to palpation present (GI) (Generalized) and Yes Guarding due to palpation present (GI) (Generalized) Extremity: COMMON NORMALS: no pedal edema Neuro: VIDAL COMA SCALE: document GCS findings [place] coma scale eye opening: Spontaneous [place] coma scale verbal response: Orientated [place] coma scale motor response: Obey commands [place] coma scale total score: 15 SENSORY EXAM: Yes extremities (intact) Psych: COMMON NORMALS: speech normal SPEECH: Yes normal speech Skin: COMMON NORMALS: no rashes or lesions noted GENERAL SKIN EXAM: no rashes or lesions noted Course Vital Signs: Vital signs: Vital Signs Pulse Rate 81 07/23/23 00:41 Respiratory Rate 16 07/23/23 00:41 Blood Pressure 112/70 07/23/23 00:41 Pulse Oximetry 97 07/23/23 00:41 Oxygen Delivery Me thod Room Air 07/23/23 00:00 [facility] - General Adult Medical Decision Making 67-year-old male here for fit for confinement. His hemoglobin is 11.1 which is stable from 2 months ago. His platelet count is stable as well at 92. Other laboratory is not remarkable. Blood pressures been normal here. Saturation is 97% on room air. He is positive for amphetamines and marijuana. He is determined fit. He will be released for discharge. Lab Data 07/22/23 22:46 07/22/23 22:46 Laboratory Results WBC 5.16 10^3/uL (3.29-11.43) 07/22/23 22:46 RBC 3.65 10^6/uL (3.85-5.65) L 07/22/23 22:46 Hgb 11.10 g/dL (11.27-16.99) L 07/22/23 22:46 Hct 33.5 % (37-53) L 07/22/23 22:46 MCV 91.8 fl (82-101) 07/22/23 22:46 MCH 30.4 pg (27-33) 07/22/23 22:46 MCHC 33.1 g/dL (30-55) 07/22/23 22:46 RDW 14.0 % (12.1-15.1) 07/22/23 22:46 Plt Count 92 10^3/cmm (157-399) L 07/22/23 22:46 MPV 9.0 fL (7.4-10.4) 07/22/23 22:46 Neut % (Auto) 70.1 % 07/22/23 22:46 Lymph % (Auto) 12.2 % 07/22/23 22:46 [place] % (Auto) 10.9 % 07/22/23 22:46 Eos % (Auto) 5.8 % 07/22/23 22:46 Baso % (Auto) 0.6 % 07/22/23 22:46 Neut # (Auto) 3.62 10^3/uL (1.8-7.7) 07/22/23 22:46 Lymph # (Auto) 0.6 10^3/uL (0.8-4.8) L 07/22/23 22:46 [place] # (Auto) 0.6 10^3/uL (0.2-0.9) 07/22/23 22:46 Eos # (Auto) 0.3 10^3/uL (0.0-0.8) 07/22/23 22:46 Baso # (Auto) 0.0 10^3/uL (0.0-0.1) 07/22/23 22:46 Nucleated RBC % (auto) 0 % 07/22/23 22:46 Nucleated RBCs # 0.0 /100WBC 07/22/23 22:46 Sodium 134 mmol/L (136-145) L 07/22/23 22:46 Potassium 4.1 mmol/L (3.5-5.1) 07/22/23 22:46 Chloride 100 mmol/L (98-107) 07/22/23 22:46 Carbon Dioxide 24 mmol/L (22-29) 07/22/23 22:46 Anion Gap 14.1 (5-19) 07/22/23 22:46 BUN 20 mg/dL (8-23) 07/22/23 22:46 Creatinine 0.9 mg/dL (0.7-1.2) 07/22/23 22:46 GFR Calculation 83.9 mL/min (90-130) L 04/27/24 22:46 Glucose 101 mg/dL (65-115) 07/22/23 22:46 Calculated Osmolality 281 mOsm/kg (285-295) L 07/22/23 22:46 Calcium 8.8 mg/dL (8.5-10.5) 07/22/23 22:46 Total Bilirubin 0.4 mg/dL (0.15-1.2) 07/22/23 22:46 AST 25 U/L (0-40) 07/22/23 22:46 ALT 15 U/L (0-41) 07/22/23 22:46 Alkaline Phosphatase 151 U/L (40-130) H 07/22/23 22:46 Total Protein 6.8 g/dL (6.6-8.7) 07/22/23 22:46 Albumin 3.4 g/dL (3.5-5.2) L 07/22/23 22:46 Globulin 3.4 g/dL (1.3-4.6) 07/22/23 22:46 Urine Color Yellow (Yellow) 07/22/23 23:13 Urine Appearance Clear (CLEAR) 07/22/23 23:13 Urine pH 5 (5-7) 07/22/23 23:13 Ur Specific [place] 1.005 (1.005-1.030) 07/22/23 23:13 Urine Protein Neg (Negative) 07/22/23 23:13 Urine Glucose (UA) Norm (Normal) 07/22/23 23:13 Urine Ketones Negative (Negative) 07/22/23 23:13 Urine Blood Neg (Negative) 07/22/23 23:13 Urine Nitrate Negative (Negative) 07/22/23 23:13 Urine Bilirubin Neg (Negative) 07/22/23 23:13 Urine Urobilinogen Neg mg/dL (Negative) 07/22/23 23:13 Ur Leukocyte Esterase Negative (Negative) 07/22/23 23:13 Salicylates < 0.3 mg/dL (3-10) L 07/22/23 22:46 Urine Opiates Screen Negative ng/mL (Negative) 07/22/23 23:13 Acetaminophen < 5.0 ug/mL (10-30) L 07/22/23 22:46 Ur Barbiturates Screen Negative ng/mL (Negative) 07/22/23 23:13 Ur Phencyclidine Scrn Negative ng/mL (Negative) 07/22/23 23:13 Ur Amphetamines Screen Positive ng/mL (Negative) H 07/22/23 23:13 U Benzodiazepines Scrn Negative ng/mL (Negative) 07/22/23 23:13 Urine Cocaine Screen Negative ng/mL (Negative) 07/22/23 23:13 U Marijuana (THC) Screen Positive ng/mL (Negative) H 07/22/23 23:13 Ethyl Alcohol < 10 mg/dL (0-10) 07/22/23 22:46 No radiology studies performed this visit Discharge Plan Discharge Patient Disposition: Home Clinical Impression: Anemia Condition: Stable Prescriptions: No Action gabapentin 300 mg capsule 900 mg PO BID Artificial Tears (cmc) 1 % drops 1 drp ophthalmic (eye) QID ferrous sulfate 325 mg (65 mg iron) tablet 325 mg PO DAILY PRN (Reason: unknown) furosemide 20 mg tablet 20 mg PO DAILY PRN (Reason: Edema) potassium chloride 20 mEq tablet extended release 20 meq PO QAM pantoprazole 40 mg tablet,delayed release (DR/EC) 40 mg PO BID multivitamin Tablet 1 tab PO DAILY sildenafil 100 mg Tablet 100 mg PO PRN PRN (Reason: Erectile Dysfunction) trazodone 100 mg Tablet 50 mg PO BEDTIME PRN (Reason: Insomnia) acyclovir 200 mg Capsule 200 mg PO DAILY fluticasone propion-salmeterol [Advair Diskus] 100-50 mcg/dose Blister With Device 1 inh INHALATION BID testosterone cypionate 200 mg/mL Oil 200 mg IM Q14D fluticasone propionate 50 mcg/actuation [place],Suspension 1 - 2 spray INTRANASAL DAILY PRN (Reason: Allergy Symptoms) cholecalciferol (vitamin D3) [Vitamin D3] 50 mcg (2,000 unit) Capsule 100 mcg PO BID Spiriva Respimat 2.5 mcg/actuation Mist 2 puff INHALATION DAILY tamsulosin 0.4 mg capsule 0.4 mg PO BEDTIME diclofenac sodium 75 mg tablet,delayed release (DR/EC) 75 mg PO Q12H PRN (Reason: pain) Qty: 20 0RF bupropion HCl 150 mg Tablet Sustained-Release 12 Hr 150 mg PO BID spironolactone 50 mg Tablet 50 mg PO DAILY food supplemt, lactose-reduced Liquid 1 ea PO BID cyclosporine 0.05 % Drops 1 drp ophthalmic (eye) Q12H Discharge Orders: Discharge ED (Routine); Ordered 07/23/23 Ordered By: Hamzah Bryant Referrals: Veronica Bassett MD [Primary Care Provider] - 4-7 days Patient Instructions: Anemia (ED), Opioid Safety, Pain Management Activity Restrictions/Additional Instructions: Your anemia is stable. Return to the emergency room for continued blood loss from your rectum, vomiting blood, other concerning symptoms. Please take your regularly scheduled medications as directed. Coding Level of Care Code ED Seam Closer for Eliseo Johns
[2023-07-23] VITALS: BP 111/66; PULSE 81; RESP 16; O2SAT 97
[2023-07-23 00:41] VITALS: BP 112/70; PULSE 81; RESP 16; O2SAT 97
== END 2023-07-23 00:53 | disposition home or self-care (01) ==
PROVIDERS: Emergency Provider Emergency Medicine; PCP Family Medicine
DX: D64.9 Anemia, unspecified (principal); J44.9 Chronic obstructive pulmonary disease, unspecified; Z86.19 Personal history of other infectious and parasitic diseases; Z87.891 Personal history of nicotine dependence
CPT/HCPCS: 36415; 80053; 80306; 80307; 81003; 85025; 99283

== ENCOUNTER 2024-01-02 12:14 | Inpatient (IN) | payer OTHER, MEDICARE, MEDICAID, SELFPAY ==
[2024-01-02] VITALS (13 sets, daily range): BP systolic 107–136; BP diastolic 60–85; PULSE 69–98; RESP 16–23; TEMP 36.6–37; O2SAT 95–99; BMI 18.1
--- NOTE | 2024-01-02 14:20 | XR_ITS ---
WS: [id number] XR acute abdomen series [id number] REASON FOR EXAM: abdominal pain FINDINGS: Large right pleural effusion with significant right lower lobe consolidation, presumably compressive atelectasis. No free air or retroperitoneal air. Large amount of stool in the left colon. The transverse colon and the hepatic flexure are dilated up to a clearly defined transition point distal to which is decompressed colon with stool. Within the midline of the pelvis there is a short segment of gas-filled rectosigmoid colon. There is increased soft tissue density within the pelvis. Urinary bladder. Minimal small bowel distention in the right lower quadrant. XR/XR acute abdomen series [id number] IMPRESSION: Large right pleural effusion and atelectasis in the right lower lung. Well-defined transition point of dilated transverse and hepatic flexure colon s uggestive of hepatic flexure/left colon obstruction. Increased soft tissue density in the pelvis. This could represent a significant ly distended urinary bladder. It is noted that on a previous CT scan of 4 the patient demonstrated cirrhosis, splenomegaly, and ascites with multiple l oops of significantly dilated edematous small bowel. Therefore it is possible that the increased soft tissue density represents flui d-filled dilated small bowel and/or ascites. There may have been a narrowing in the left colon on that examination however t hat is equivocal. CT scan of the abdomen and pelvis may be helpful.
[2024-01-02 14:31] LABS: Basophils % 0.4 %; Eosinophils # 0.1 10^3/uL (0.0-0.8); Eosinophils % 1.8 %; Hematocrit 34.5 % (37-53); Lymphocytes # 0.5 10^3/uL (0.8-4.8); Lymphocytes % 6.3 %; Mean Corpuscular HGB Conc 32.8 g/dL (30-55); Mean Corpuscular Hemoglobin 29.7 pg (27-33); Mean Corpuscular Volume 90.6 fl (82-101); Mean Platelet Volume 9.5 fL (7.4-10.4); Monocytes # 0.9 10^3/uL (0.2-0.9); Monocytes % 12.1 %; Neutrophils # 6.02 10^3/uL (1.8-7.7); Neutrophils % 78.9 %; Nucleated Red Blood Cells % 0 %; Platelet Count 112 10^3/cmm (157-399); Red Blood Count 3.81 10^6/uL (3.85-5.65); White Blood Count 7.63 10^3/uL (3.29-11.43)
[2024-01-02 14:47] LABS: INR 1.17 (0.8-1.2)
[2024-01-02 14:48] LABS: Partial Thromboplastin Time 38.1 SECONDS (23.9-36.7)
[2024-01-02 14:54] LABS: Lactic Sepsis W/Reflex 1.9 mmol/L (0.5-2.2)
[2024-01-02 14:55] LABS: Alanine Aminotransferase 14 U/L (0-41); Albumin Level 3.1 g/dL (3.5-5.2); Alkaline Phosphatase 119 U/L (40-130); Anion Gap 13.9 (5-19); Aspartate Amino Transferase 24 U/L (0-40); Blood Urea Nitrogen 19 mg/dL (8-23); Calcium 8.2 mg/dL (8.5-10.5); Carbon Dioxide 24 mmol/L (22-29); Chloride 97 mmol/L (98-107); Globulin 3.4 g/dL (1.3-4.6); Glomerular Filtration Rate 95.8 mL/min (90-130); Glucose 119 mg/dL (65-115); Lipase 10 U/L (13-60); Osmolality Calculated 275 mOsm/kg (285-295); Potassium 3.9 mmol/L (3.5-5.1); Sodium 131 mmol/L (136-145); Total Bilirubin 1.1 mg/dL (0.15-1.2); Total Protein 6.5 g/dL (6.6-8.7)
--- NOTE | 2024-01-02 14:56 | CTR_ITS ---
PROCEDURE INFORMATION: Exam: CT Abdomen And Pelvis With Contrast Exam date and time: 01/02/2024 4:34 PM Age: 68 years old Clinical indication: Abdominal pain TECHNIQUE: Imaging protocol: Computed tomography of the abdomen and pelvis with contrast. Radiation optimization: All CT scans at this facility use at least one of these dose optimization techniques: automated exposure control; mA and/or kV adjustment per patient size (includes targeted exams where dose is matched to clinical indication); or iterative reconstruction. Contrast material: OMNI 350; Contrast volume: 100 ml; Contrast route: INTRAVENOUS (IV); COMPARISON: CT angio chest w abd pel w con 04/27/2023 1:13 PM RADIATION DOSE METRICS: Total DLP (mGy-cm): 473 FINDINGS: Pleural spaces: Large bilateral pleural effusions. Compressive partial atelectasis right lung base. Liver: Cirrhotic liver morphology Gallbladder and biliary ducts: Post cholecystectomy. Pancreas: Normal. No ductal dilation. Spleen: There is splenomegaly. Adrenal glands: Normal. No mass. Kidneys and ureters: Normal. No hydronephrosis. Stomach and bowel: There are dilated and wall thickened stomach, small bowel and colon concerning for portal hypertensive enterocolopathy Appendix: No evidence of appendicitis. Intraperitoneal space: There is a large amount of free intra-abdominal fluid. Vasculature: There is evidence of portosystemic shunting. With prominent perirectal hemorrhoidal varices. Lymph nodes: Unremarkable. No enlarged lymph nodes. Urinary bladder: Unremarkable as visualized. Reproductive: Unremarkable as visualized. Bones/joints: Unremarkable. No acute fracture. Soft tissues: Unremarkable. CT/CT abdomen pelvis w con* [id number] IMPRESSION: 1. Cirrhosis with large volume ascites and bilateral pleural effusions. 2. Evidence of portal hypertension with splenomegaly and portosystemic shunts and prominent perirectal hemorrhoidal varices. 3. Thickened stomach, small bowel and colon concerning for portal hypertensive enterocolopathy.
[2024-01-02 15:00] LABS: Ammonia 59 umol/L (16-60)
--- NOTE | 2024-01-02 16:29 | ED_ITS ---
HPI - Abdominal Pain 2 General: Chief Complaint: Abdominal Pain Stated Complaint: Stomach pain Time Seen by Provider: 01/02/24 14:04 History of Present Illness: 68-year-old man with a history of cirrh osis, hepatitis C, anemia and COPD who presents to the emergency room aminal pain with Diffuse abdominal pain. He has had decreased appetite for several days and pain over the last couple of days. He has had nausea vomiting and diarrhea. He feels like his abdomen is distended. He says he has had ascites in the past but has only had to have it drained a couple of times. No known fevers. Related Data Home Medications Medication Instructions Recorded Confirmed multivitamin 1 tab PO DAILY 10/19/20 04/27/23 pantoprazole 40 mg tablet,delayed 40 mg PO BID 10/19/20 04/27/23 release carboxymethylcellulose sodium 1 % 1 drp ophthalmic (eye) QID dry eyes 11/19/20 04/27/23 eye drops (Artificial Tears (carboxymethylcellulose)) ferrous sulfate 325 mg (65 mg 325 mg PO DAILY PRN unknown 11/19/20 04/27/23 iron) tablet furosemide 20 mg tablet 20 mg PO DAILY PRN Edema 11/19/20 04/27/23 gabapentin 300 mg capsule 900 mg PO BID 11/19/20 04/27/23 potassium chloride 20 mEq 20 meq PO QAM 11/19/20 04/27/23 tablet,extended release acyclovir 200 mg capsule 200 mg PO DAILY 02/12/21 04/27/23 cholecalciferol (vitamin D3) 50 100 mcg PO BID 02/12/21 04/27/23 mcg (2,000 unit) capsule (Vitamin D3) fluticasone 100 mcg-salmeterol 50 1 inh inhalation BID 02/12/21 04/27/23 mcg/dose blistr powdr for inhalation (Advair Diskus) fluticasone propionate 50 1 - 2 spray intranasal DAILY PRN 02/12/21 04/27/23 mcg/actuation nasal Allergy Symptoms spray,suspension sildenafil 100 mg tablet 100 mg PO PRN PRN Erectile 02/12/21 04/27/23 Dysfunction tamsulosin 0.4 mg capsule 0.4 mg PO BEDTIME 02/12/21 04/27/23 testosterone cypionate 200 mg/mL 200 mg IM Q14D 02/12/21 04/27/23 intramuscular oil tiotropium bromide 2.5 2 puff inhalation DAILY 02/12/21 04/27/23 mcg/actuation mist for inhalation (Spiriva Respimat) trazodone 100 mg tablet 50 mg PO BEDTIME PRN Insomnia 02/12/21 04/27/23 bupropion HCl 150 mg tablet,12 hr 150 mg PO BID 04/27/23 04/27/23 sustained-release cyclosporine 0.05 % eye drops 1 drp ophthalmic (eye) Q12H 04/27/23 04/27/23 food supplemt, lactose-reduced 1 ea PO BID 04/27/23 04/27/23 spironolactone 50 mg tablet 50 mg PO DAILY 04/27/23 04/27/23 Previous Rx's Medication Instructions Recorded diclofenac sodium 75 mg 75 mg PO Q12H PRN pain #20 tabs 04/15/23 tablet,delayed release Allergies Allergy/AdvReac Type Severity Reaction Status Date / Time No Known Allergies Allergy Verified 01/02/24 12:57 Review of Systems 2 Narrative: Constitutional symptoms: Negative except as documented in HPI. Skin symptoms: Negative except as documented in HPI. Eye symptoms: Negative except as documented in HPI. ENMT symptoms: Negative except as documented in HPI. Respiratory symptoms: Negative except as documented in HPI. Cardiovascular symptoms: Negative except as documented in HPI. Gastrointestinal symptoms: Negative except as documented in HPI. Genitourinary symptoms: Negative except as documented in HPI. Musculoskeletal symptoms: Negative except as documented in HPI. Neurologic symptoms: Negative except as documented in HPI. Psychiatric symptoms: Negative except as documented in HPI. Endocrine symptoms: Negative except as documented in HPI. PFSH ED 2 PFSH: Medical History Scoliosis COPD (chronic obstructive pulmonary disease) Anemia GI bleeding Hepatitis C Liver cirrhosis Acute urinary retention Surgical History Hx of cholecystectomy History of back surgery Family History Father CAD (coronary artery disease) Social History Smoking and tobacco/nicotine status: former use of tobacco/nicotine Alcohol intake: never Marital status: Current occupational status: disabled Physical Exam 2 Narrative: EXAM NARRATIVE: General: Alert, no acute distress. Skin: Warm, dry. Head: Normocephalic, atraumatic. Neck: Supple, trachea midline. Eye: Extraocular movements are intact. Ears, nose, mouth and throat: Dry oral mucosa Cardiovascular: Regular, Normal peripheral perfusion. Respiratory: Lungs are clear to auscultation, respirations are non-labored, breath sounds are equal, Symmetrical chest wall expansion. Gastrointestinal: Soft, abdomen is distended and slightly tight. Patient is extremely tender to palpation diffusely. Musculoskeletal: Normal ROM, no deformity. Neurological: Alert and oriented, No focal neurological deficit observed. Psychiatric: Cooperative, appropriate mood & affect. Course 2 Vital Signs: Vital signs: Vital Signs Pulse Rate 88 01/02/24 17:58 Respiratory Rate 20 H 01/02/24 12:46 Blood Pressure 133/80 01/02/24 17:58 Pulse Oximetry 97 01/02/24 17:58 Oxygen Delivery Me thod Room Air 01/02/24 17:58 MDM - Abdominal Pain Medical Decision Making Medical decision making: Differential diagnosis for this patient with nausea and vomiting including but not limited to and based on the above HPI, review of systems and physical exam: Urinary tract infection. Appendicitis. Cholecystis. colitis. small bowel obstruction. crohn's flare. pancreatitis. gastritis. peptic ulcer. cyclic vomiting. Viral illness. Influenza. COVID. - Workup - labwork and imaging ordered to evaluate, rule in and rule out above pathologies. Lab Review: Laboratory results were reviewed and interpreted by myself the emergency room physician. No leukocytosis, no anemia. Hemoglobin is 11.3. Platelets are little bit low at 112. BUN and creatinine are 19 and 0.8. Lipase is normal. Liver enzymes are normal. Acute abdominal series: Large right pleural effusion with atelectasis in the right lung. What appears to be a obstruction in the colon. CT was ordered. This was reviewed and interpreted by myself the emergency room physician. I also reviewed the radiology report. CT of the abdomen pelvis with contrast: Sequela of cirrhosis. Ascites. Portal hypertension. Splenomegaly. This was reviewed and interpreted by myself the emergency room physician. I also reviewed the radiology report. I reviewed the patient's medical record. Reexamination: Patient continues to have some abdominal pain. Dry oral mucosa. No increased work of breathing. No altered mental status. No focal motor deficits. Consultation: I spoke with Dr. Khalil who is on-call for the hospitalist service who agrees to admission. Assessment and plan: Spontaneous bacterial peritonitis Cirrhosis Ascites ?IV cefepime and IV Lasix here in the emergency room. ?Too late for ultrasound-guided paracentesis. This will need to be done tomorrow. -I discussed the patient with the hospitalist on-call who is admitting the patient. - Discussed findings and plan with patient. Answered any questions. - All laboratory values were reviewed and interpreted personally by myself, the ER physician - All imaging was reviewed and interpreted personally by myself, the ER physician. - Evaluation and treatment of this problem were appropriate in the emergency setting Lab Data 01/02/24 14:12 01/02/24 14:12 Labs/Radiology: Radiology Impressions Chest/Abdomen X-ray 01/02/24 14:20 IMPRESSION: Large right pleural effusion and atelectasis in the right lower lung. Well-defined transition point of dilated transverse and hepatic flexure colon suggestive of hepatic flexure/left colon obstruction. Increased soft tissue density in the pelvis. This could represent a significantly distended urinary bladder. It is noted that on a previous CT scan of 04/27/2023 the patient demonstrated cirrhosis, splenomegaly, and ascites with multiple loops of significantly dilated edematous small bowel. Therefore it is possible that the increased soft tissue density represents fluid-filled dilated small bowel and/or ascites. There may have been a narrowing in the left colon on that examination however that is equivocal. CT scan of the abdomen and pelvis may be helpful. Abdomen/Pelvis CT 01/02/24 14:56 IMPRESSION: 1. Cirrhosis with large volume ascites and bilateral pleural effusions. 2. Evidence of portal hypertension with splenomegaly and portosystemic shunts and prominent perirectal hemorrhoidal varices. 3. Thickened stomach, small bowel and colon concerning for portal hypertensive enterocolopathy. Laboratory Results WBC 7.63 10^3/uL (3.29-11.43) 01/02/24 14:12 RBC 3.81 10^6/uL (3.85-5.65) L 01/02/24 14:12 Hgb 11.30 g/dL (11.27-16.99) 01/02/24 14:12 Hct 34.5 % (37-53) L 01/02/24 14:12 MCV 90.6 fl (82-101) 01/02/24 14:12 MCH 29.7 pg (27-33) 01/02/24 14:12 MCHC 32.8 g/dL (30-55) 01/02/24 14:12 RDW 15.0 % (12.1-15.1) 01/02/24 14:12 Plt Count 112 10^3/cmm (157-399) L 01/02/24 14:12 MPV 9.5 fL (7.4-10.4) 01/02/24 14:12 Neut % (Auto) 78.9 % 01/02/24 14:12 Lymph % (Auto) 6.3 % 01/02/24 14:12 [place] % (Auto) 12.1 % 01/02/24 14:12 Eos % (Auto) 1.8 % 01/02/24 14:12 Baso % (Auto) 0.4 % 01/02/24 14:12 Neut # (Auto) 6.02 10^3/uL (1.8-7.7) 01/02/24 14:12 Lymph # (Auto) 0.5 10^3/uL (0.8-4.8) L 01/02/24 14:12 [place] # (Auto) 0.9 10^3/uL (0.2-0.9) 01/02/24 14:12 Eos # (Auto) 0.1 10^3/uL (0.0-0.8) 01/02/24 14:12 Baso # (Auto) 0.0 10^3/uL (0.0-0.1) 01/02/24 14:12 Nucleated RBC % (auto) 0 % 01/02/24 14:12 Nucleated RBCs # 0.0 /100WBC 01/02/24 14:12 PT 15.30 SECONDS (12.1-14.9) H 01/02/24 14:12 INR 1.17 (0.8-1.2) 01/02/24 14:12 APTT 38.1 SECONDS (23.9-36.7) H 01/02/24 14:12 Sodium 131 mmol/L (136-145) L 01/02/24 14:12 Potassium 3.9 mmol/L (3.5-5.1) 01/02/24 14:12 Chloride 97 mmol/L (98-107) L 01/02/24 14:12 Carbon Dioxide 24 mmol/L (22-29) 01/02/24 14:12 Anion Gap 13.9 (5-19) 01/02/24 14:12 BUN 19 mg/dL (8-23) 01/02/24 14:12 Creatinine 0.8 mg/dL (0.7-1.2) 01/02/24 14:12 GFR Calculation 95.8 mL/min (90-130) 01/02/24 14:12 Glucose 119 mg/dL (65-115) H 01/02/24 14:12 Calculated Osmolality 275 mOsm/kg (285-295) L 01/02/24 14:12 Lactic Acid 1.9 mmol/L (0.5-2.2) 01/02/24 14:12 Calcium 8.2 mg/dL (8.5-10.5) L 01/02/24 14:12 Total Bilirubin 1.1 mg/dL (0.15-1.2) 01/02/24 14:12 AST 24 U/L (0-40) 01/02/24 14:12 ALT 14 U/L (0-41) 01/02/24 14:12 Alkaline Phosphatase 119 U/L (40-130) 01/02/24 14:12 Ammonia 59 umol/L (16-60) 01/02/24 14:12 Total Protein 6.5 g/dL (6.6-8.7) L 01/02/24 14:12 Albumin 3.1 g/dL (3.5-5.2) L 01/02/24 14:12 Globulin 3.4 g/dL (1.3-4.6) 01/02/24 14:12 Lipase 10 U/L (13-60) L 01/02/24 14:12 Urine Color Dark yellow (Yellow) A 01/02/24 16:55 Urine Appearance Clear (CLEAR) 01/02/24 16:55 Urine pH 5.5 (5-7) 01/02/24 16:55 Ur Specific Grubbs 1.026 (1.005-1.030) 01/02/24 16:55 Urine Protein 1+ (Negative) A 01/02/24 16:55 Urine Glucose (UA) Negative (Normal) 01/02/24 16:55 Urine Ketones Negative (Negative) 01/02/24 16:55 Urine Blood Negative (Negative) 01/02/24 16:55 Urine Nitrate Negative (Negative) 01/02/24 16:55 Urine Bilirubin 1+ (Negative) H 01/02/24 16:55 Urine Urobilinogen 1.0 mg/dL (Negative) 01/02/24 16:55 Ur Leukocyte Esterase Negative (Negative) 01/02/24 16:55 Urine RBC 0-2 /hpf (0-2) 01/02/24 16:55 Urine WBC 0-5 /hpf (0-5) 01/02/24 16:55 Ur Squamous Epith Cells 0-5 /hpf (0-5) 01/02/24 16:55 Amorphous Sediment Not Reportable 01/02/24 16:55 Urine Bacteria None seen /hpf (NONE) 01/02/24 16:55 Hyaline Casts 3.30 /lpf 01/02/24 16:55 All radiology interpretation(s) finalized by discharge Discharge Plan Discharge Patient Disposition: Admitted As Inpatient Clinical Impression: SBP (spontaneous bacterial peritonitis), Ascites Liver cirrhosis Qualifiers: Hepatic cirrhosis type: other cirrhosis Qualified Code(s): K74.69 - Other cirrhosis of liver Condition: Stable Coding Level of Care Code ED [employer] Lect[employer] for Eliseo Johns
[2024-01-02] MEDS: iohexol 350 mg/mL 500 mL Btl (per mL) IV (16:37)
[2024-01-02 17:19] LABS: Bilirubin Urine 1+ (Negative); Blood Urine Negative (Negative); Glucose Urine UA Negative (Normal); Ketones Urine Negative (Negative); Leukocyte Esterase Urine Negative (Negative); Nitrate Urine Negative (Negative); Protein Urine 1+ (Negative); Specific Gravity, Urine 1.026 (1.005-1.030); Urine Appearance Clear (CLEAR); Urine Color Dark Yellow (Yellow); pH Urine 5.5 (5-7)
[2024-01-02 17:25] LABS: Bacteria Urine None Seen /hpf; RBC Urine 0-2 /hpf (0-2); Squamous Epithelial Cell Urine 0-5 /hpf (0-5); WBC Urine 0-5 /hpf (0-5)
[2024-01-02] MEDS: FUROsemide 10 mg/mL SDV 4mL 40 MG IVP (17:56)
--- NOTE | 2024-01-02 18:17 | CTR_ITS ---
PROCEDURE INFORMATION: Exam: CT Chest Without Contrast; Diagnostic Exam date and time: 01/02/2024 8:10 PM Age: 68 years old Clinical indication: Shortness of breath; Additional info: Right pleural effusion TECHNIQUE: Imaging protocol: Diagnostic computed tomography of the chest without contrast. Radiation optimization: All CT scans at this facility use at least one of these dose optimization techniques: automated exposure control; mA and/or kV adjustment per patient size (includes targeted exams where dose is matched to clinical indication); or iterative reconstruction. COMPARISON: CT angio chest w abd pel w con 04/27/2023 1:13 PM RADIATION DOSE METRICS: Total DLP (mGy-cm): 259 Limitations: Limited assessment without contrast. FINDINGS: Lungs: The visualized lung [place] show emphysematous changes with pleural-based bulla. There is partial atelectasis of the right lower lobe. Pleural spaces: Large bilateral pleural effusions. No pneumothorax. Heart: Unremarkable. No cardiomegaly. No pericardial effusion. Lymph nodes: Unremarkable. No enlarged lymph nodes. Vasculature: There is atherosclerotic calcification of the aorta without aneurysm. Faint coronary artery calcification also seen. Intraperitoneal space: Abdominal findings are described separately in the exam from same date. Bones/joints: Unremarkable. No acute fracture. Soft tissues: Unremarkable. CT/CT chest wo con [id number] IMPRESSION: Large bilateral pleural effusion with partial atelectasis right lower lobe. COMMENTS: The presence of pulmonary emphysema on CT is an independent risk factor for lung cancer. In the absence of a history or active diagnosis of lung cancer, it is recommended that this patient with emphysema be evaluated for enrollment in a low dose CT lung cancer screening program.
--- NOTE | 2024-01-02 18:23 | P.HP_ITS ---
Providers/Chief Complaint 2 Primary Care Provider: Veronica Bassett MD Chief Complaint: Stomach pain History of Present Illness Gee Dobson is a 68 year old male with a past medical history of liver cirrhosis, esophageal varices, history of COPD, hepatitis C, GI bleed, COPD, right pleural effusion, who presents [facility] due to fatigue, malaise, poor appetite, diarrhea, abdominal distention abdominal pain, weight loss. Currently patient alert oriented x 3, following all commands, he is complaint currently is abdominal pain, abdominal distention, he does report having bowel movements reports diarrhea, no fevers, chills, does have a poor appetite does report nausea, no vomiting, no lightheadedness, no dizziness, does report lower extremity edema, denies drinking any alcohol, he does report feeling weak, he does ambulate on his own, denies any significant falls Review of Systems 2 Const: Reports: chills, fatigue and malaise Card: Denies: chest pain Resp: Denies: dyspnea GI: Reports: abdominal pain and diarrhea : Denies: flank pain Neuro: Denies: headache(s) Medications/Allergies Home Medications Medication Instructions Recorded Confirmed Last Taken Type multivitamin 1 tab PO DAILY 10/19/20 04/27/23 Unknown History pantoprazole 40 mg tablet,delayed 40 mg PO BID 10/19/20 04/27/23 02/11/21 History release carboxymethylcellulose sodium 1 % 1 drp ophthalmic (eye) QID dry eyes 11/19/20 04/27/23 Unknown History eye drops (Artificial Tears (carboxymethylcellulose)) ferrous sulfate 325 mg (65 mg 325 mg PO DAILY PRN unknown 11/19/20 04/27/23 Unknown History iron) tablet furosemide 20 mg tablet 20 mg PO DAILY PRN Edema 11/19/20 04/27/23 Unknown History gabapentin 300 mg capsule 900 mg PO BID 11/19/20 04/27/23 02/11/21 History potassium chloride 20 mEq 20 meq PO QAM 11/19/20 04/27/23 Unknown History tablet,extended release acyclovir 200 mg capsule 200 mg PO DAILY 02/12/21 04/27/23 Unknown History cholecalciferol (vitamin D3) 50 100 mcg PO BID 02/12/21 04/27/23 Unknown History mcg (2,000 unit) capsule (Vitamin D3) fluticasone 100 mcg-salmeterol 50 1 inh inhalation BID 02/12/21 04/27/23 Unknown History mcg/dose blistr powdr for inhalation (Advair Diskus) fluticasone propionate 50 1 - 2 spray intranasal DAILY PRN 02/12/21 04/27/23 Unknown History mcg/actuation nasal Allergy Symptoms spray,suspension sildenafil 100 mg tablet 100 mg PO PRN PRN Erectile 02/12/21 04/27/23 Unknown History Dysfunction tamsulosin 0.4 mg capsule 0.4 mg PO BEDTIME 02/12/21 04/27/23 02/11/21 History testosterone cypionate 200 mg/mL 200 mg IM Q14D 02/12/21 04/27/23 02/04/21 History intramuscular oil tiotropium bromide 2.5 2 puff inhalation DAILY 02/12/21 04/27/23 Unknown History mcg/actuation mist for inhalation (Spiriva Respimat) trazodone 100 mg tablet 50 mg PO BEDTIME PRN Insomnia 02/12/21 04/27/23 Unknown History diclofenac sodium 75 mg 75 mg PO Q12H PRN pain #20 tabs 04/15/23 04/27/23 Unknown Rx tablet,delayed release bupropion HCl 150 mg tablet,12 hr 150 mg PO BID 04/27/23 04/27/23 Unknown History sustained-release cyclosporine 0.05 % eye drops 1 drp ophthalmic (eye) Q12H 04/27/23 04/27/23 Unknown History food supplemt, lactose-reduced 1 ea PO BID 04/27/23 04/27/23 Unknown History spironolactone 50 mg tablet 50 mg PO DAILY 04/27/23 04/27/23 Unknown History Allergies Allergy/AdvReac Type Severity Reaction Status Date / Time No Known Allergies Allergy Verified 01/02/24 12:57 PFSH Acute 2 PFSH: Medical History Scoliosis COPD (chronic obstructive pulmonary disease) Anemia GI bleeding Hepatitis C Liver cirrhosis Acute urinary retention Surgical History Hx of cholecystectomy History of back surgery Family History Father CAD (coronary artery disease) Social History Smoking and tobacco/nicotine status: former use of tobacco/nicotine Alcohol intake: never Marital status: Current occupational status: disabled Vitals/I&O/Wt Last Vital Signs Pulse 88 01/02/24 17:58 Resp 20 H 01/02/24 12:46 BP 133/80 01/02/24 17:58 Pulse Ox 97 01/02/24 17:58 O2 Del Method Room Air 01/02/24 17:58 Weight last 48 hrs Weight 57.153 kg Physical Exam 2 Const: COMMON NORMALS: no acute distress and patient oriented x3 HENMT: COMMON NORMALS: normocephalic HEAD & SCALP: normocephalic OTHER: Check tick appearing, severe protein calorie malnutrition, bilateral temporal muscle wasting, sitting fat pad under bilateral clavicles, ribs, significant muscle wasting of bilateral arms, bilateral thighs Eye: COMMON NORMALS: Equal, round and reactive pupils present Neck/C-Spine: COMMON NORMALS: no JVD Resp: COMMON NORMALS: normal respiratory effort, No retractions, No use of accessory muscles and clear to auscultation bilaterally AUSCULTATION: clear to auscultation bilaterally Cardio: COMMON NORMALS: no JVD, regular rate, regular rhythm, S1 normal heart sound present and S2 normal heart sound present RATE: regular rate RHYTHM: regular rhythm HEART SOUNDS: S1 normal heart sound present and S2 normal heart sound present GI: COMMON NORMALS: no masses OTHER: Abdomen is soft, distended, no guarding, no rebound, no rigidity, does have diffuse bowel sounds, does have diffuse tenderness to palpation, has abdominal wall hernia present, reducible Extremity: COMMON NORMALS: no calf tenderness and no pedal edema Neuro: COMMON NORMALS: patient oriented x3, CN's II-XII intact bilaterally and moves all extremities Psych: COMMON NORMALS: mental status grossly normal Data 01/02/24 14:12 01/02/24 14:12 A&P Assessment and plan (1) Liver cirrhosis: Qualifiers: Hepatic cirrhosis type: other cirrhosis Qualified Code(s): K74.69 - Other cirrhosis of liver (2) COPD (chronic obstructive pulmonary disease): (3) Anemia: (4) Abdominal pain: Qualifiers: Abdominal location: generalized Qualified Code(s): R10.84 - Generalized abdominal pain Plan Abdominal pain ? Initial chest x-ray abdominal x-ray showed XR/XR acute abdomen series [id number] IMPRESSION: Large right pleural effusion and atelectasis in the right lower lung. Well-defined transition point of dilated transverse and hepatic flexure colon suggestive of hepatic flexure/left colon obstruction. Increased soft tissue density in the pelvis. This could represent a significantly distended urinary bladder. It is noted that on a previous CT scan of 04/27/2023 the patient demonstrated cirrhosis, splenomegaly, and ascites with multiple loops of significantly dilated edematous small bowel. Therefore it is possible that the increased soft tissue density represents fluid-filled dilated small bowel and/or ascites. There may have been a narrowing in the left colon on that examination however that is equivocal. CT scan of the abdomen and pelvis may be helpful. -However patient reports bowel movements, reports diarrhea, CT scan abdomen pelvis ordered CT/CT abdomen pelvis w con* [id number] IMPRESSION: 1. Cirrhosis with large volume ascites and bilateral pleural effusions. 2. Evidence of portal hypertension with splenomegaly and portosystemic shunts and prominent perirectal hemorrhoidal varices. 3. Thickened stomach, small bowel and colon concerning for portal hypertensive enterocolopathy. ? Plan ? Findings concerning for large volume ascites requiring paracentesis, will order ultrasound to paracentesis, for tomorrow, with studies ? Concerns for spontaneous bacterial peritonitis, start cefepime ? Blood cultures ? Pro-Catracho, CRP, lactic acid ? For now we will keep on n.p.o. ? Speech therapy eval ? Full code ? SCDs for DVT prophylaxis, Lovenox relatively contraindicated given history of esophageal varices, GI bleed Liver cirrhosis, with history of hepatitis C ? With history of esophageal varices, GI bleed ? CT scan shows evidence of portal hypertension, splenomegaly Severe protein calorie malnutrition, physical deconditioning, muscle loss ? Likely sec to liver cirrhosis Recurrent right pleural effusion, CT of the chest Attestations 2 Medical Necessity Statement*: Patient requires hospitalization, inpatient, greater than 2 midnights for abdominal pain, concerns for spontaneous bacterial peritonitis, liver cirrhosis, ascites Diagnoses Other cirrhosis of liver K74.69 Hepatic cirrhosis type: other cirrhosis COPD (chronic obstructive pulmonary disease) J44.9 Anemia D64.9 Abdominal pain R10.84 Abdominal location: generalized
--- NOTE | 2024-01-02 18:29 | ECG_ITS ---
[facility] Test Date: 2024-01-02 Pat Name: Gee Dobson Department: Room: Gender: Male Principal Ios Developer: : 1955 Requested By: Dimas Khalil Order Number: [id number] Reading MD: CAROLINA PATEL Measurements Intervals [place] Rate: 87 P: 0 W[place]: 0 QRS: 133 QRSD: 83 T: 267 QT: 365 QTc: 441 Interpretive Statements Sinus RHYTHM, artifact POSSIBLE RIGHT VENTRICULAR HYPERTROPHY [SOME/ALL OF: PROMINENT R IN V1, LATE TRANSITION, RAD, WILLIAM, SSS] ABNORMAL QRS-T ANGLE [QRS-T AXIS DIFFERENCE > 60] Compared to ECG 04/27/2023 11:58:27 there is artifact present now Electronically Signed On 01-03-2024 20:08:06 CDT by CAROLINA PATEL [id number]
[2024-01-02] MEDS: pantoprazole 40 mg SDV IVP (18:40)
[2024-01-02] MEDS: cefepime 2,000 MG in sodium chloride 0.9% (plus) 50 ML 100 MG IV (18:50)
[2024-01-02 19:40] LABS: Lactic Sepsis W/Reflex 1.4 mmol/L (0.5-2.2)
--- NOTE | 2024-01-02 20:21 | ECG_ITS ---
[facility] Test Date: 2024-01-02 Pat Name: Gee Dobson Department: Room: 266 Gender: Male Continuous Improvement Analyst: : 1955 Requested By: Dimas Khalil Order Number: [id number] Reading MD: CAROLINA PATEL Measurements Intervals [place] Rate: 95 P: 16 [place]: 130 QRS: 34 QRSD: 85 T: 33 QT: 360 QTc: 453 Interpretive Statements SINUS RHYTHM LOW QRS VOLTAGE IN PRECORDIAL LEADS [QRS DEFLECTION < 1.0 mV IN CHEST LEADS] Compared to ECG 01/02/2024 18:29:49 Low QRS voltage now present Supraventricular rhythm no longer present Electronically Signed On 01-03-2024 20:12:05 CDT by CAROLINA PATEL [id number]
[2024-01-02 20:36] LABS: Estmated Average Glucose 80; Hemoglobin A1C 4.4 % (4.0-6.0)
[2024-01-02 20:47] LABS: INR 1.16 (0.8-1.2)
[2024-01-02 20:54] LABS: Troponin(5th) Baseline 7 ng/L (0-15)
[2024-01-02 20:56] LABS: Gamma Glutamyl Transferase 18 U/L (8-61)
[2024-01-02 21:01] LABS: NT Pro B Type Natriuretic Pept 341 pg/mL (0-125); Thyroid Stimulating Hormone 2.36 uIU/mL (0.27-4.20)
[2024-01-02 21:13] LABS: C Reactive Protein 79.8 mg/L (0.0-4.9); Chol HDL Ratio 2.27 mg/dL (1.0-5.00); Cholesterol 102 mg/dL (0-200); HDL Cholesterol 45 mg/dL (60-100); LDL Cholesterol Calculated 47 mg/dL (50-129); LDL HDL Ratio 1.04 RATIO (0.00-3.22); Triglycerides 52 mg/dL (0-150)
[2024-01-02] MEDS: tamsulosin 0.4 mg Capsule PO (22:39)
[2024-01-02 23:29] LABS: Troponin 5 2HR 7.18 ng/L (0-15); Troponin 5 2HR Delta 0.18 ABS# (0-10)
[2024-01-03] VITALS (11 sets, daily range): BP systolic 97–115; BP diastolic 58–67; PULSE 89–102; RESP 16–18; TEMP 36.3–37; O2SAT 93–97
--- NOTE | 2024-01-03 01:12 | ECG_ITS ---
[facility] Test Date: 2024-01-03 Pat Name: Gee Dobson Department: Room: 266 Gender: Male Melt Supervisor: : 1955 Requested By: Dimas Khalil Order Number: [id number] Reading MD: CAROLINA PATEL Measurements Intervals [place] Rate: 95 P: 4 NE: 134 QRS: 35 QRSD: 86 T: 1 QT: 362 QTc: 455 Interpretive Statements SINUS RHYTHM LOW QRS VOLTAGE IN PRECORDIAL LEADS [QRS DEFLECTION < 1.0 mV IN CHEST LEADS] Compared to ECG 01/02/2024 19:50:01 No significant changes Electronically Signed On 01-03-2024 20:11:50 CDT by CAROLINA PATEL [id number]
[2024-01-03 04:10] LABS: Basophils % 0.5 %; Eosinophils # 0.1 10^3/uL (0.0-0.8); Eosinophils % 1.6 %; Hematocrit 34.4 % (37-53); Lymphocytes # 0.4 10^3/uL (0.8-4.8); Mean Corpuscular HGB Conc 32.3 g/dL (30-55); Mean Corpuscular Hemoglobin 29.7 pg (27-33); Mean Platelet Volume 9.5 fL (7.4-10.4); Monocytes # 0.6 10^3/uL (0.2-0.9); Monocytes % 10.4 %; Neutrophils # 4.48 10^3/uL (1.8-7.7); Nucleated Red Blood Cells % 0 %; Platelet Count 88 10^3/cmm (157-399); Red Blood Count 3.74 10^6/uL (3.85-5.65); Red Cell Distribution Width 14.7 % (12.1-15.1)
[2024-01-03 04:24] LABS: Alanine Aminotransferase 13 U/L (0-41); Albumin Level 2.6 g/dL (3.5-5.2); Alkaline Phosphatase 109 U/L (40-130); Anion Gap 14.7 (5-19); Aspartate Amino Transferase 22 U/L (0-40); Blood Urea Nitrogen 18 mg/dL (8-23); Calcium 7.8 mg/dL (8.5-10.5); Carbon Dioxide 23 mmol/L (22-29); Chloride 98 mmol/L (98-107); Creatinine Clr Calc Pharmacy 68.1563; Globulin 3.2 g/dL (1.3-4.6); Glomerular Filtration Rate 95.8 mL/min (90-130); Glucose 84 mg/dL (65-115); Magnesium 1.8 mg/dL (1.7-2.3); Osmolality Calculated 275 mOsm/kg (285-295); Phosphorus 3.7 mg/dL (2.5-4.5); Potassium 3.7 mmol/L (3.5-5.1); Sodium 132 mmol/L (136-145); Total Bilirubin 0.9 mg/dL (0.15-1.2); Total Protein 5.8 g/dL (6.6-8.7)
[2024-01-03] MEDS: cefepime 2,000 MG in sodium chloride 0.9% (plus) 50 ML 100 MG IV ×2 (05:55→18:36)
[2024-01-03] MEDS: albumin 25 G/100 ML BAG 60 G IV ×2 (09:12→17:34)
[2024-01-03 09:40] LABS: Body Fluid Polynuclear #Cells 0.016; Body Fluid WBC 157 /uL; Monocytes # Body Fluid 0.141; RBC, Body Fluid 0 10^3/uL
[2024-01-03 09:44] LABS: Apprearance, Body Fluid CLEAR; Color, Body Fluid YELLOW; Cyto Order Verification No Order; PATH Referral YES; pH Body Fluid 7.5
--- NOTE | 2024-01-03 09:47 | XR_ITS ---
WS: [id number] XR KUB portable [id number] REASON FOR EXAM: Possible Bowel Obstruction FINDINGS: Bilateral pleural effusions. Compared to the examination of the previous day there continues to be dilatation of the transverse co enrike with an abrupt transition in the left upper quadrant to decompressed colon. There there is an increased number of gas-filled small bowel loops visualized in the lower abdomen an d pelvis with mild dilatation. There is an increased amount of air in the presumed rectosigmoid colon . There is a less overall opacity to the lower abdomen and pelvis presumably due to recent paracentesis . Residual contrast is noted in the renal collecting systems and ureters bilaterally with residual cont rast in the urinary bladder as well. XR/XR KUB portable [id number] IMPRESSION: Interval changes as compared to the abdomen examination of the previous day as noted above.
[2024-01-03 09:56] LABS: Body Fluid Specific Gravity 1.015
[2024-01-03 10:23] LABS: Albumin Body Fluid 0.8 g/dL; Cholesterol Body Fluid 21 mg/dL (0-200); Fluid Alkaline Phos. 32 IU/L; LDH Body Fluid 57 U/L; Total Protein Body Fluid 1.5 g/dL; Triglycerides Body Fluid 18 mg/dL (0-150); Uric Acid Body Fluid 5 mg/dL
--- NOTE | 2024-01-03 15:32 | P.PN_ITS ---
Subjective 2 Subjective: Patient was seen this morning, he is alert and oriented x 3, following all commands, he has no specific complaints, his abdominal pain has significantly resolved, with his paracentesis, he is passing gas from below, has reported diarrhea early this morning, denies any nausea, no vomiting, no lightheadedness, dizziness, Vitals/I&O/Wt Last Vital Signs Temp 97.5 F L 01/03/24 11:46 Pulse 98 01/03/24 11:57 Resp 18 01/03/24 11:57 BP 97/58 01/03/24 11:46 Pulse Ox 93 01/03/24 11:57 O2 Del Method Room Air 01/03/24 11:57 FiO2 21 01/03/24 01:31 01/03/24 01/03/24 01/03/24 06:59 14:59 22:59 Intake Total 50 / 50 150 / 150 Output Total 300 / 700 Balance -250 / -650 150 / 150 Weight last 48 hrs Weight 54.948 kg Weight 55.293 kg Weight 57.153 kg Physical Exam 2 Const: COMMON NORMALS: no acute distress and patient oriented x3 Resp: COMMON NORMALS: normal respiratory effort, No retractions, No use of accessory muscles and clear to auscultation bilaterally AUSCULTATION: clear to auscultation bilaterally Cardio: COMMON NORMALS: regular rate, regular rhythm, S1 normal heart sound present and S2 normal heart sound present RATE: regular rate RHYTHM: r egular rhythm HEART SOUNDS: S1 normal heart sound present and S2 normal heart sound present GI: COMMON NORMALS: Normal to inspection, nondistended, normoactive bowel sounds present, Soft to palpation and non-tender PALPATION: Yes Soft to palpation Extremity: COMMON NORMALS: no pedal edema Neuro: COMMON NORMALS: patient oriented x3 Psych: COMMON NORMALS: mental status grossly normal Data 01/03/24 03:26 01/03/24 03:26 Micro: Microbiology 01/03/24 09:28 Gram Stain - Final Peritoneal Fluid Body Fluid Culture - Preliminary 01/02/24 18:06 Blood Culture - Preliminary Blood SPECIMEN COLLECTED 01/02/24 18:16 Blood Culture - Preliminary Blood SPECIMEN COLLECTED A&P Assessment and plan (1) Liver cirrhosis: Qualifiers: Hepatic cirrhosis type: other cirrhosis Qualified Code(s): K74.69 - Other cirrhosis of liver (2) COPD (chronic obstructive pulmonary disease): (3) Anemia: (4) Abdominal pain: Qualifiers: Abdominal location: generalized Qualified Code(s): R10.84 - Generalized abdominal pain Plan Abdominal pain ? Initial chest x-ray abdominal x-ray showed XR/XR acute abdomen series [id number] IMPRESSION: Large right pleural effusion and atelectasis in the right lower lung. Well-defined transition point of dilated transverse and hepatic flexure colon suggestive of hepatic flexure/left colon obstruction. Increased soft tissue density in the pelvis. This could represent a significantly distended urinary bladder. It is noted that on a previous CT scan of 04/27/2023 the patient demonstrated cirrhosis, splenomegaly, and ascites with multiple loops of significantly dilated edematous small bowel. Therefore it is possible that the increased soft tissue density represents fluid-filled dilated small bowel and/or ascites. There may have been a narrowing in the left colon on that examination however that is equivocal. CT scan of the abdomen and pelvis may be helpful. -However patient reports bowel movements, reports diarrhea, CT scan abdomen pelvis ordered CT/CT abdomen pelvis w con* [id number] IMPRESSION: 1. Cirrhosis with large volume ascites and bilateral pleural effusions. 2. Evidence of portal hypertension with splenomegaly and portosystemic shunts and prominent perirectal hemorrhoidal varices. 3. Thickened stomach, small bowel and colon concerning for portal hypertensive -Repeat KUB this morning FINDINGS: Bilateral pleural effusions. Compared to the examination of the previous day there continues to be dilatation of the transverse colon with an abrupt transition in the left upper quadrant to decompressed colon. There there is an increased number of gas-filled small bowel loops visualized in the lower abdomen and pelvis with mild dilatation. There is an increased amount of air in the presumed rectosigmoid colon. There is a less overall opacity to the lower abdomen and pelvis presumably due to recent paracentesis. Residual contrast is noted in the renal collecting systems and ureters bilaterally with residual contrast in the urinary bladder as well. XR/XR KUB portable [id number] IMPRESSION: Interval changes as compared to the abdomen examination of the previous day as noted above. ? Plan ? Findings concerning for large volume ascites requiring paracentesis, status post paracentesis follow-up paracentesis studies ? Concerns for spontaneous bacterial peritonitis, continue cefepime ? Blood cultures ? Pro-Catracho within normal limits, CRP 79.8, lactic acid within normal limits ? Given x-ray findings above, spoke to dr. Eduardo, spoke to general surgery Dr. Corrales, no significant concerns for bowel obstruction, patient is passing gas, having bowel movements -Start patient on clear liquid diet ? Speech therapy eval -Dietary eval ? Full code ? SCDs for DVT prophylaxis, Lovenox relatively contraindicated given history of esophageal varices, GI bleed Liver cirrhosis, with history of hepatitis C ? With history of esophageal varices, GI bleed ? CT scan shows evidence of portal hypertension, splenomegaly Severe protein calorie malnutrition, physical deconditioning, muscle loss ? Likely sec to liver cirrhosis Recurrent right pleural effusion, CT of the chest CT/CT chest wo con [id number] IMPRESSION: Large bilateral pleural effusion with partial atelectasis right lower lobe. -Will hold off on thoracocentesis as patient has a paracentesis this morning, risk of hypotension ? Given patient's atelectasis right lower lobe continue cefepime as above Patient requires hospitalization for concerns for spontaneous bacterial peritonitis, Attestations 2 Medical Necessity Statement*: Patient requires hospitalization for concerns for spontaneous bacterial peritonitis, Diagnoses Other cirrhosis of liver K74.69 Hepatic cirrhosis type: other cirrhosis COPD (chronic obstructive pulmonary disease) J44.9 Anemia D64.9 Abdominal pain R10.84 Abdominal location: generalized
--- NOTE | 2024-01-03 18:30 | US_ITS ---
WS: [id number] ULTRASOUND-GUIDED THERAPEUTIC AND DIAGNOSTIC PARACENTESIS Procedure, risks, and complications have been explained to the patient. Consent is obtained. Utilizing aseptic technique and 1% buffered lidocaine, a small dermatome was made through which a 5 F rench Yueh catheter was inserted. Approximately 3500 ml of clear peritoneal fluid was obtained witho ut difficulty. No complications encountered. Specimen collected as requested. US/US paracentesis abd w [id number] IMPRESSION: Uncomplicated paracentesis yielding 3500 ml of peritoneal fluid.
[2024-01-03] MEDS: pantoprazole 40 mg SDV IVP (18:35)
[2024-01-03] MEDS: tamsulosin 0.4 mg Capsule PO (20:23)
[2024-01-03] MEDS: morphine 4 mg/mL SDV 1 mL 2 MG IVP (20:23)
[2024-01-04] VITALS (10 sets, daily range): BP systolic 95–113; BP diastolic 60–69; PULSE 86–93; RESP 16–20; TEMP 36.3–37; O2SAT 93–96
[2024-01-04] MEDS: albumin 25 G/100 ML BAG 60 G IV ×3 (01:25→16:27)
--- NOTE | 2024-01-04 04:34 | PC.NURSE ---
KANDI walked into patients room to get 04:00 vitals KANDI asked patients if she could check and see if he had a bowel movement he states Well i think i would be able to tell if i have had one dont you KANDI let nurse know patients didnt want us to check.
[2024-01-04] MEDS: cefepime 2,000 MG in sodium chloride 0.9% (plus) 50 ML 100 MG IV ×2 (05:15→18:20)
[2024-01-04 05:48] LABS: Basophils % 0.4 %; Eosinophils # 0.1 10^3/uL (0.0-0.8); Eosinophils % 2.6 %; Hematocrit 29.3 % (37-53); Lymphocytes # 0.5 10^3/uL (0.8-4.8); Lymphocytes % 11.2 %; Mean Corpuscular HGB Conc 33.1 g/dL (30-55); Mean Corpuscular Hemoglobin 29.4 pg (27-33); Mean Corpuscular Volume 88.8 fl (82-101); Mean Platelet Volume 9.5 fL (7.4-10.4); Monocytes # 0.6 10^3/uL (0.2-0.9); Neutrophils # 3.41 10^3/uL (1.8-7.7); Neutrophils % 73.4 %; Nucleated Red Blood Cells % 0 %; Platelet Count 72 10^3/cmm (157-399); Red Cell Distribution Width 14.6 % (12.1-15.1); White Blood Count 4.65 10^3/uL (3.29-11.43)
[2024-01-04 06:06] LABS: Alanine Aminotransferase 10 U/L (0-41); Albumin Level 3.5 g/dL (3.5-5.2); Alkaline Phosphatase 87 U/L (40-130); Anion Gap 12.7 (5-19); Aspartate Amino Transferase 22 U/L (0-40); Blood Urea Nitrogen 19 mg/dL (8-23); Carbon Dioxide 26 mmol/L (22-29); Chloride 102 mmol/L (98-107); Globulin 2.3 g/dL (1.3-4.6); Glomerular Filtration Rate 95.8 mL/min (90-130); Glucose 73 mg/dL (65-115); Magnesium 1.8 mg/dL (1.7-2.3); Osmolality Calculated 285 mOsm/kg (285-295); Phosphorus 2.7 mg/dL (2.5-4.5); Potassium 3.7 mmol/L (3.5-5.1); Sodium 137 mmol/L (136-145); Total Bilirubin 1.1 mg/dL (0.15-1.2); Total Protein 5.8 g/dL (6.6-8.7)
--- NOTE | 2024-01-04 10:06 | PC.CHAP ---
Pastoral Care Encounter/Spiritual Assessment Type of Contact [] Declined radiology services manager visit [] Patient/Family/Request visit [] Outpatient visit [] Follow-up visit [] Physician referral [] Code/Alert [x] Routine visit [] Staff referral [] Actively dying [] Patient sleeping [] Family support [] [] Out of room [] Palliative care [] [] Receiving care in room [] Pre-surgical visit [] Trauma [] Long length of stay [] ICU visit [] Other: Relational/Emotional Strength [x] Patient feels connected with others/family/visitors/staff [] Distress [] Loneliness/isolation [] Abandonment Spirituality of Patient [x] Person of Dalila [] Attends Taoism of their Dalila [x] Believes in Prayer [] Reads Bible or Yarsanism materials [] There are Spiritual issues to be addressed Rn Long Term Care Interventions [x] Prayer [x] Active listening [] Non-anxious presence [x] Spiritual/emotional support [] Crisis/trauma care [] Spiritual counseling [] Bereavement support [] Provided bereavement packet [] Provided Bible/devotional materials [] Provided toy/stuffed animal, coloring book to patient or family member [] Provided Communion [] Anointing/[place] [] Salvation [x] Completed spiritual assessment [] Other: Impact on Illness or Injury [] Angry [] Fearful [] Anxious [] Often cries [] Exhaustion [] Unable to work [] Unable to attend mandaen [] Unable to walk/stand [] Unable to read [] Unable to drive [] Unable to eat/drink [] Unable to sleep [] Unable to be with family [] Patient intubated [] Other: Summary Time spent with patient 5 min
--- NOTE | 2024-01-04 15:00 | PC.OT ---
OT TREATMENT ATTEMPTED IN P.M. PATIENT IS SLEEPING SOUNDLY
--- NOTE | 2024-01-04 16:32 | P.PN_ITS ---
Subjective 2 Subjective: Patient was seen this morning, he is alert oriented x 3, following all commands, his ascites is returning and he tells me, but is not causing significant abdominal pain, he is passing gas from below, he is on clear liquids tolerating well no nausea, no vomiting, will advance his diet Vitals/I&O/Wt Last Vital Signs Temp 97.4 F L 01/04/24 12:00 Pulse 93 01/04/24 12:00 Resp 18 01/04/24 12:00 BP 109/67 01/04/24 12:00 Pulse Ox 95 01/04/24 12:00 O2 Del Method Room Air 01/04/24 12:00 FiO2 21 01/03/24 01:31 01/04/24 01/04/24 01/04/24 06:59 14:59 22:59 Intake Total 150 / 810 540 / 540 Output Total 200 / 300 Balance -50 / 510 540 / 540 Weight last 48 hrs Weight 54.114 kg Weight 54.948 kg Weight 55.293 kg Physical Exam 2 Const: COMMON NORMALS: no acute distress and patient oriented x3 Resp: COMMON NORMALS: normal respiratory effort, No retractions, No use of accessory muscles and clear to auscultation bilaterally AUSCULTATION: clear to auscultation bilaterally Cardio: COMMON NORMALS: regular rate, regular rhythm, S1 normal heart sound present and S2 normal heart sound present RATE: regular rate RHYTHM: r egular rhythm HEART SOUNDS: S1 normal heart sound present and S2 normal heart sound present GI: COMMON NORMALS: Normal to inspection, nondistended, normoactive bowel sounds present and non-tender Extremity: COMMON NORMALS: no pedal edema Neuro: COMMON NORMALS: patient oriented x3 Psych: COMMON NORMALS: mental status grossly normal Data 01/04/24 04:51 01/04/24 04:51 Micro: Microbiology 01/03/24 09:28 Gram Stain - Final Peritoneal Fluid Anaerobic Culture - Preliminary Body Fluid Culture - Preliminary 01/02/24 18:16 Blood Culture - Preliminary Blood NEGATIVE TO DATE 01/02/24 18:06 Blood Culture - Preliminary Blood NEGATIVE TO DATE A&P Assessment and plan (1) Liver cirrhosis: Qualifiers: Hepatic cirrhosis type: other cirrhosis Qualified Code(s): K74.69 - Other cirrhosis of liver (2) COPD (chronic obstructive pulmonary disease): (3) Anemia: (4) Abdominal pain: Qualifiers: Abdominal location: generalized Qualified Code(s): R10.84 - Generalized abdominal pain Plan Abdominal pain ? Initial chest x-ray abdominal x-ray showed XR/XR acute abdomen series [id number] IMPRESSION: Large right pleural effusion and atelectasis in the right lower lung. Well-defined transition point of dilated transverse and hepatic flexure colon suggestive of hepatic flexure/left colon obstruction. Increased soft tissue density in the pelvis. This could represent a significantly distended urinary bladder. It is noted that on a previous CT scan of 04/27/2023 the patient demonstrated cirrhosis, splenomegaly, and ascites with multiple loops of significantly dilated edematous small bowel. Therefore it is possible that the increased soft tissue density represents fluid-filled dilated small bowel and/or ascites. There may have been a narrowing in the left colon on that examination however that is equivocal. CT scan of the abdomen and pelvis may be helpful. -However patient reports bowel movements, reports diarrhea, CT scan abdomen pelvis ordered CT/CT abdomen pelvis w con* [id number] IMPRESSION: 1. Cirrhosis with large volume ascites and bilateral pleural effusions. 2. Evidence of portal hypertension with splenomegaly and portosystemic shunts and prominent perirectal hemorrhoidal varices. 3. Thickened stomach, small bowel and colon concerning for portal hypertensive -Repeat KUB this morning FINDINGS: Bilateral pleural effusions. Compared to the examination of the previous day there continues to be dilatation of the transverse colon with an abrupt transition in the left upper quadrant to decompressed colon. There there is an increased number of gas-filled small bowel loops visualized in the lower abdomen and pelvis with mild dilatation. There is an increased amount of air in the presumed rectosigmoid colon. There is a less overall opacity to the lower abdomen and pelvis presumably due to recent paracentesis. Residual contrast is noted in the renal collecting systems and ureters bilaterally with residual contrast in the urinary bladder as well. XR/XR KUB portable [id number] IMPRESSION: Interval changes as compared to the abdomen examination of the previous day as noted above. -Ascites cultures so far negative, WBCs 157 ? Plan ? Concerns for spontaneous bacterial peritonitis, continue cefepime ? Blood cultures ? Pro-Catracho within normal limits, CRP 79.8, lactic acid within normal limits ? Given x-ray findings above, spoke to dr. Eduardo, spoke to general surgery Dr. Corrales, no significant concerns for bowel obstruction, patient is passing gas, having bowel movements -Start patient on clear liquid diet, advance to GI soft ? Speech therapy eval -Dietary eval ? Full code ? SCDs for DVT prophylaxis, Lovenox relatively contraindicated given history of esophageal varices, GI bleed Liver cirrhosis, with history of hepatitis C ? With history of esophageal varices, GI bleed ? CT scan shows evidence of portal hypertension, splenomegaly Severe protein calorie malnutrition, physical deconditioning, muscle loss ? Likely sec to liver cirrhosis Recurrent right pleural effusion, CT of the chest CT/CT chest wo con [id number] IMPRESSION: Large bilateral pleural effusion with partial atelectasis right lower lobe. -Will hold off on thoracocentesis as patient has a paracentesis this morning, risk of hypotension ? Given patient's atelectasis right lower lobe continue cefepime as above Patient requires hospitalization for concerns for spontaneous bacterial peritonitis, Attestations 2 Medical Necessity Statement*: Patient requires hospitalization for concerns for spontaneous bacterial peritonitis, following cultures continue IV antibiotics Diagnoses Other cirrhosis of liver K74.69 Hepatic cirrhosis type: other cirrhosis COPD (chronic obstructive pulmonary disease) J44.9 Anemia D64.9 Abdominal pain R10.84 Abdominal location: generalized
[2024-01-04] MEDS: pantoprazole 40 mg SDV IVP (18:20)
[2024-01-04] MEDS: trazodone 50 mg Tablet PO (20:29)
[2024-01-04] MEDS: tamsulosin 0.4 mg Capsule PO (20:29)
[2024-01-05] VITALS (7 sets, daily range): BP systolic 101–120; BP diastolic 61–73; PULSE 80–92; RESP 15–18; TEMP 36.7–37.1; O2SAT 93–96
[2024-01-05] MEDS: albumin 25 G/100 ML BAG 60 G IV ×2 (00:09→08:50)
[2024-01-05] MEDS: cefepime 2,000 MG in sodium chloride 0.9% (plus) 50 ML 100 MG IV (05:15)
[2024-01-05 05:16] LABS: Basophils % 0.6 %; Eosinophils # 0.1 10^3/uL (0.0-0.8); Eosinophils % 2.6 %; Hematocrit 28.2 % (37-53); Lymphocytes # 0.5 10^3/uL (0.8-4.8); Lymphocytes % 9.3 %; Mean Corpuscular Hemoglobin 30.2 pg (27-33); Mean Corpuscular Volume 88.7 fl (82-101); Mean Platelet Volume 9.3 fL (7.4-10.4); Monocytes # 0.6 10^3/uL (0.2-0.9); Monocytes % 12.1 %; Neutrophils # 3.74 10^3/uL (1.8-7.7); Neutrophils % 75.2 %; Nucleated Red Blood Cells % 0 %; Platelet Count 58 10^3/cmm (157-399); Red Blood Count 3.18 10^6/uL (3.85-5.65); Red Cell Distribution Width 14.6 % (12.1-15.1); White Blood Count 4.97 10^3/uL (3.29-11.43)
[2024-01-05 05:37] LABS: Alanine Aminotransferase 8 U/L (0-41); Albumin Level 3.9 g/dL (3.5-5.2); Alkaline Phosphatase 78 U/L (40-130); Anion Gap 12.6 (5-19); Aspartate Amino Transferase 18 U/L (0-40); Blood Urea Nitrogen 15 mg/dL (8-23); Calcium 8.3 mg/dL (8.5-10.5); Carbon Dioxide 25 mmol/L (22-29); Chloride 102 mmol/L (98-107); Glomerular Filtration Rate 111.8 mL/min (90-130); Glucose 99 mg/dL (65-115); Magnesium 1.9 mg/dL (1.7-2.3); Osmolality Calculated 283 mOsm/kg (285-295); Phosphorus 1.4 mg/dL (2.5-4.5); Potassium 3.6 mmol/L (3.5-5.1); Sodium 136 mmol/L (136-145); Total Bilirubin 1.2 mg/dL (0.15-1.2); Total Protein 5.9 g/dL (6.6-8.7)
--- NOTE | 2024-01-05 11:35 | PM.DCS ---
Discharge Providers Date of Admission: 01/02/24 19:50 Date of Discharge: January 05, 2024 Attending Provider at Admission: Dimas Khalil MD Attending Provider at Discharge: Dimas Khalil MD Primary Care Provider: Veronica Bassett MD Diagnoses at Discharge Discharge Diagnosis (1) Liver cirrhosis: Status: Chronic Qualifiers: Hepatic cirrhosis type: other cirrhosis Qualified Code(s): K74.69 - Other cirrhosis of liver (2) COPD (chronic obstructive pulmonary disease): Status: Chronic (3) Anemia: Status: Acute (4) Abdominal pain: Status: Inactive Qualifiers: Abdominal location: generalized Qualified Code(s): R10.84 - Generalized abdominal pain Reason for Visit Reason for Visit: Stomach pain Hospital Course Hospital Course Gee Dobson is a 68 year old male with a past medical history of liver cirrhosis, esophageal varices, history of COPD, hepatitis C, GI bleed, COPD, right pleural effusion, who presents [facility] due to fatigue, malaise, poor appetite, diarrhea, abdominal distention abdominal pain, weight loss. Currently patient alert oriented x 3, following all commands, he is complaint currently is abdominal pain, abdominal distention, he does report having bowel movements reports diarrhea, no fevers, chills, does have a poor appetite does report nausea, no vomiting, no lightheadedness, no dizziness, does report lower extremity edema, denies drinking any alcohol, he does report feeling weak, he does ambulate on his own, denies any significant falls Patient was admitted to [facility] for abdominal pain likely secondary to large volume ascites, he required paracentesis, overall clinically improved, discharged on spironolactone, Lasix with close follow-up with primary care provider as outpatient For his history of liver cirrhosis, advised to follow-up with GI in [place] There was concerns for spontaneous bacterial peritonitis during his hospital admission, remains afebrile, no significant abdominal pain, ascites cultures remain unremarkable, WBCs 157 fairly unlikely to be SBP, will discharge home, with close follow-up with primary care provider as outpatient History of liver cirrhosis, history of hepatitis C, history of esophageal varices history of GI bleed CT scan shows portal hypertension, splenomegaly, follow-up with GI in [place] For his severe protein calorie malnutrition, physical deconditioning, muscle loss, likely secondary liver cirrhosis, advised to drink protein shakes twice daily, follow-up with primary care Recurrent right pleural effusion, no complaints of shortness of breath, likely hepatic hydrothorax, has had thoracocentesis in the past, monitor I did have additional discussion with him given his severe protein calorie malnutrition, physical deconditioning, BMI 17 liver cirrhosis, had a discussion with him about hospice, he wants to follow-up with his primary care provider as outpatient for discussion about hospice he is not ready for hospice he tells me Physical Exam Const: COMMON NORMALS: no acute distress and patient oriented x3 Resp: COMMON NORMALS: normal respiratory effort, No retractions, No use of accessory muscles and clear to auscultation bilaterally AUSCULTATION: clear to auscultation bilaterally Cardio: COMMON NORMALS: regular rate, regular rhythm, S1 normal heart sound present and S2 normal heart sound present RATE: regular rate RHYTHM: regular rhythm HEART SOUNDS: S1 normal heart sound present and S2 normal heart sound present GI: COMMON NORMALS: Normal to inspection, nondistended, normoactive bowel sounds present and non-tender Extremity: COMMON NORMALS: no calf tenderness and no pedal edema Neuro: COMMON NORMALS: patient oriented x3 Psych: COMMON NORMALS: mental status grossly normal Discharge Data Studies Completed and Pending Completed Studies During Hospitalization Category Date Time Status CT abdomen pelvis w con* [id number] Stat Cat Scan 01/02/24 14:[address] chest wo con [id number] Stat Cat Scan 01/02/24 18:17 Completed XR KUB portable [id number] Routine Exams 01/03/24 09:47 Completed XR acute abdomen series [id number] Stat Exams 01/02/24 14:20 [place]d w [id number] Stat Ultrasound 01/03/24 18:30 Completed Pending at discharge Category Date Time Status Amylase, Peritoneal Fluid Routine Lab 01/02/24 20:20 Received Anaerobic Culture Routine Lab 01/02/24 20:20 Results Blood Culture Stat Lab 01/02/24 18:06 Results Body Fluid Culture & GS Routine Lab 01/02/24 20:20 Results Mycobacteria, Culture w/Fluor Routine Lab 01/02/24 20:20 Received Radiology Impressions Chest/Abdomen X-ray 01/02/24 14:20 IMPRESSION: Large right pleural effusion and atelectasis in the right lower lung. Well-defined transition point of dilated transverse and hepatic flexure colon suggestive of hepatic flexure/left colon obstruction. Increased soft tissue density in the pelvis. This could represent a significantly distended urinary bladder. It is noted that on a previous CT scan of 04/27/2023 the patient demonstrated cirrhosis, splenomegaly, and ascites with multiple loops of significantly dilated edematous small bowel. Therefore it is possible that the increased soft tissue density represents fluid-filled dilated small bowel and/or ascites. There may have been a narrowing in the left colon on that examination however that is equivocal. CT scan of the abdomen and pelvis may be helpful. Abdomen/Pelvis CT 01/02/24 14:56 IMPRESSION: 1. Cirrhosis with large volume ascites and bilateral pleural effusions. 2. Evidence of portal hypertension with splenomegaly and portosystemic shunts and prominent perirectal hemorrhoidal varices. 3. Thickened stomach, small bowel and colon concerning for portal hypertensive enterocolopathy. Chest CT 01/02/24 18:17 IMPRESSION: Large bilateral pleural effusion with partial atelectasis right lower lobe. COMMENTS: The presence of pulmonary emphysema on CT is an independent risk factor for lung cancer. In the absence of a history or active diagnosis of lung cancer, it is recommended that this patient with emphysema be evaluated for enrollment in a low dose CT lung cancer screening program. KUB X-Ray 01/03/24 09:47 IMPRESSION: Interval changes as compared to the abdomen examination of the previous day as noted above. Paracentesis Ultrasound 01/03/24 18:30 IMPRESSION: Uncomplicated paracentesis yielding 3500 ml of peritoneal fluid. Laboratory Results WBC 4.97 10^3/uL (3.29-11.43) 01/05/24 04:21 RBC 3.18 10^6/uL (3.85-5.65) L 01/05/24 04:21 Hgb 9.60 g/dL (11.27-16.99) L 01/05/24 04:21 Hct 28.2 % (37-53) L 01/05/24 04:21 MCV 88.7 fl (82-101) 01/05/24 04:21 MCH 30.2 pg (27-33) 01/05/24 04:21 MCHC 34.0 g/dL (30-55) 01/05/24 04:21 RDW 14.6 % (12.1-15.1) 01/05/24 04:21 Plt Count 58 10^3/cmm (157-399) L 01/05/24 04:21 MPV 9.3 fL (7.4-10.4) 01/05/24 04:21 Neut % (Auto) 75.2 % 01/05/24 04:21 Lymph % (Auto) 9.3 % 01/05/24 04:21 [place] % (Auto) 12.1 % 01/05/24 04:21 Eos % (Auto) 2.6 % 01/05/24 04:21 Baso % (Auto) 0.6 % 01/05/24 04:21 Neut # (Auto) 3.74 10^3/uL (1.8-7.7) 01/05/24 04:21 Lymph # (Auto) 0.5 10^3/uL (0.8-4.8) L 01/05/24 04:21 [place] # (Auto) 0.6 10^3/uL (0.2-0.9) 01/05/24 04:21 Eos # (Auto) 0.1 10^3/uL (0.0-0.8) 01/05/24 04:21 Baso # (Auto) 0.0 10^3/uL (0.0-0.1) 01/05/24 04:21 Nucleated RBC % (auto) 0 % 01/05/24 04:21 Nucleated RBCs # 0.0 /100WBC 01/05/24 04:21 Differential Comment Yes 01/03/24 09:28 PT 15.20 SECONDS (12.1-14.9) H 01/02/24 20:26 INR 1.16 (0.8-1.2) 01/02/24 20:26 APTT 38.1 SECONDS (23.9-36.7) H 01/02/24 14:12 Sodium 136 mmol/L (136-145) 01/05/24 04:21 Potassium 3.6 mmol/L (3.5-5.1) 01/05/24 04:21 Chloride 102 mmol/L (98-107) 01/05/24 04:21 Carbon Dioxide 25 mmol/L (22-29) 01/05/24 04:21 Anion Gap 12.6 (5-19) 01/05/24 04:21 BUN 15 mg/dL (8-23) 01/05/24 04:21 Creatinine 0.7 mg/dL (0.7-1.2) 01/05/24 04:21 GFR Calculation 111.8 mL/min (90-130) 01/05/24 04:21 Glucose 99 mg/dL (65-115) 01/05/24 04:21 Estimat Average Glucose 80 01/02/24 14:12 Hemoglobin A1c 4.4 % (4.0-6.0) 01/02/24 14:12 Calculated Osmolality 283 mOsm/kg (285-295) L 01/05/24 04:21 Lactic Acid 1.4 mmol/L (0.5-2.2) 01/02/24 18:06 Calcium 8.3 mg/dL (8.5-10.5) L 01/05/24 04:21 Phosphorus 1.4 mg/dL (2.5-4.5) L 01/05/24 04:21 Magnesium 1.9 mg/dL (1.7-2.3) 01/05/24 04:21 Total Bilirubin 1.2 mg/dL (0.15-1.2) 01/05/24 04:21 GGT 18 U/L (8-61) 01/02/24 20:26 AST 18 U/L (0-40) 01/05/24 04:21 ALT 8 U/L (0-41) 01/05/24 04:21 Alkaline Phosphatase 78 U/L (40-130) 01/05/24 04:21 Ammonia 59 umol/L (16-60) 01/02/24 14:12 Troponin T Baseline 7 ng/L (0-15) 01/02/24 20:26 Troponin T 120 Minute 7.18 ng/L (0-15) 01/02/24 23:00 Delta Troponin T 0.18 ABS# (0-10) 01/02/24 23:00 Troponin T Hi Sens 6Hr 10.50 ng/L (0-15) 01/03/24 03:26 Troponin T Hi Sens 6Hr Delta 3.50 ng/L (0-12) 01/03/24 03:26 C-Reactive Protein 79.8 mg/L (0.0-4.9) H 01/02/24 20:26 NT-Pro-B Natriuret Pep 341 pg/mL (0-125) H 01/02/24 20:26 Total Protein 5.9 g/dL (6.6-8.7) L 01/05/24 04:21 Albumin 3.9 g/dL (3.5-5.2) 01/05/24 04:21 Globulin 2.0 g/dL (1.3-4.6) 01/05/24 04:21 Triglycerides 52 mg/dL (0-150) 01/02/24 20: Cholesterol 102 mg/dL (0-200) 01/02/24 20:26 LDL Cholesterol, Calc 47 mg/dL (50-129) L 01/02/24 20: HDL Cholesterol 45 mg/dL (60-100) L 01/02/24 20: LDL/HDL Ratio 1.04 RATIO (0.00-3.22) 01/02/24 20: Cholesterol/HDL Ratio 2.27 mg/dL (1.0-5.00) 01/02/24 20: Lipase 10 U/L (13-60) L 01/02/24 14:12 Procalcitonin 0.10 ng/mL (0-0.5) 01/02/24 20: TSH 2.36 uIU/mL (0.27-4.20) 01/02/24 20:26 Urine Color Dark yellow (Yellow) A 01/02/24 16:55 Urine Appearance Clear (CLEAR) 01/02/24 16:55 Urine pH 5.5 (5-7) 01/02/24 16:55 Ur Specific [place] 1.026 (1.005-1.030) 01/02/24 16:55 Urine Protein 1+ (Negative) A 01/02/24 16:55 Urine Glucose (UA) Negative (Normal) 01/02/24 16:55 Urine Ketones Negative (Negative) 01/02/24 16:55 Urine Blood Negative (Negative) 01/02/24 16:55 Urine Nitrate Negative (Negative) 01/02/24 16:55 Urine Bilirubin 1+ (Negative) H 01/02/24 16:55 Urine Urobilinogen 1.0 mg/dL (Negative) 01/02/24 16:55 Ur Leukocyte Esterase Negative (Negative) 01/02/24 16:55 Urine RBC 0-2 /hpf (0-2) 01/02/24 16:55 Urine WBC 0-5 /hpf (0-5) 01/02/24 16:55 Ur Squamous Epith Cells 0-5 /hpf (0-5) 01/02/24 16:55 Amorphous Sediment Not Reportable 01/02/24 16:55 Urine Bacteria None seen /hpf (NONE) 01/02/24 16:55 Hyaline Casts 3.30 /lpf 01/02/24 16:55 Fluid Color Yellow 01/03/24 09:28 Fluid Appearance Clear 01/03/24 09:28 Fluid Specific Grav 1.015 01/03/24 09:28 Fluid pH 7.5 01/03/24 09:28 Fluid WBC 157 /uL 01/03/24 09:28 Fluid RBC 0 10^3/uL 01/03/24 09:28 Fld Polynuclear WBCs # 0.016 01/03/24 09:28 Fld Polynuclear WBCs % 10.200 % 01/03/24 09:28 Fl Mononucl WBCs #(Auto) 0.141 01/03/24 09:28 Fl Mononuclear % Auto 89.800 % 01/03/24 09:28 Fld Crystal Laterality Not Reportable 01/03/24 09:28 Fluid Glucose 79.0 mg/dL 01/03/24 09:28 Fluid Total Protein 1.5 g/dL 01/03/24 09:28 Fluid Albumin 0.8 g/dL 01/03/24 09:28 Fluid LDH 57 U/L 01/03/24 09:28 Fluid Alk Phosphatase 32 IU/L 01/03/24 09:28 Fluid Cholesterol 21 mg/dL (0-200) 01/03/24 09:28 Fluid Triglycerides 18 mg/dL (0-150) 01/03/24 09:28 Fluid Uric Acid 5 mg/dL 01/03/24 09:28 Pleural Amylase Cancelled 01/03/24 09:28 Vitals Last Vital Signs Temp 98.0 F 01/05/24 08:00 Pulse 84 01/05/24 09:25 Resp 16 01/05/24 09:25 BP 108/66 01/05/24 08:00 Pulse Ox 95 01/05/24 09:25 O2 Del Method Room Air 01/05/24 09:25 O2 Flow Rate 2 01/04/24 16:00 FiO2 21 01/03/24 01:31 Discharge Plan Discharge Patient Disposition: Home Condition: Stable Prescriptions: New furosemide [Lasix] 20 mg tablet 20 mg PO DAILY 30 Days Qty: 30 0RF Continued ferrous sulfate 325 mg (65 mg iron) tablet 325 mg PO DAILY PRN (Reason: unknown) pantoprazole 40 mg tablet,delayed release (DR/EC) 40 mg PO BID cholecalciferol (vitamin D3) [Vitamin D3] 50 mcg (2,000 unit) Capsule 100 mcg PO BID tamsulosin 0.4 mg capsule 0.4 mg PO BEDTIME spironolactone 50 mg Tablet 50 mg PO DAILY Discharge Orders: Discharge Order (Routine); Ordered 01/05/24 Ordered By: Dimas Khalil Referrals: Pepe Cuadra MD [Referring] - 1-3 days Veronica Bassett MD [Primary Care Provider] - Discharge Diet: Advance as tolerated and Cardiac Discharge Activity: Resume usual activity Patient Instructions: Opioid Safety Activity Restrictions/Additional Instructions: - Please follow-up with your primary care provider -Recheck kidney function in a week -Please follow-up with GI Discharge Attestations Time Spent in Discharge Care*: greater than 30 min Quality Metrics Clinical Quality Measures [ No reported AMI, CVA or VTE this stay] Coding Level of Care Code 69837 Total time (in minutes) for Discharge: 45 Diagnoses Other cirrhosis of liver K74.69 Hepatic cirrhosis type: other cirrhosis COPD (chronic obstructive pulmonary disease) J44.9 Anemia D64.9 Abdominal pain R10.84 Abdominal location: generalized
--- NOTE | 2024-01-05 12:51 | PC.OT ---
OT treatment attempted with pt declining; will attempt again at another time.
--- NOTE | 2024-01-05 13:14 | PC.SOCIAL ---
IMM Update pg 2 of IMM updated and reviewed w/ patient. Copy provided and copy dated, initialed and placed in chart.
--- NOTE | 2024-01-05 15:04 | PC.NURSE ---
Discussed discharge with patient. Went over follow up appointments, new medications, stopped or changed medications. Patient verbalized understanding of discharge.
[2024-01-06 20:29] LABS: Amylase, Peritoneal Fluid 10 U/L
== END 2024-01-05 14:00 | disposition home or self-care (01) | DRG 432 ==
LOC: ER 18:27 → MEDSURG 19:51
PROVIDERS: Admitting Provider Family Medicine; Emergency Provider Emergency Medicine; PCP Family Medicine; Visit Provider Family Medicine
DX: K74.69 Other cirrhosis of liver (principal); E43 Unspecified severe protein-calorie malnutrition; R18.8 Other ascites; Z68.1 Body mass index [BMI] 19.9 or less, adult; K76.6 Portal hypertension; J94.8 Other specified pleural conditions; D64.9 Anemia, unspecified; J44.9 Chronic obstructive pulmonary disease, unspecified; R19.7 Diarrhea, unspecified; R16.1 Splenomegaly, not elsewhere classified; Z86.19 Personal history of other infectious and parasitic diseases; Z87.891 Personal history of nicotine dependence
CPT/HCPCS: 36415; 49083; 71250; 74018; 74022; 74177; 80053; 80061; 80503; 81001; 82042; 82140; 82150; 82465; 82945; 82977; 83036; 83605; 83615; 83690; 83735; 83880; 83986; 84075; 84100; 84145; 84157; 84315; 84443; 84478; 84484; 84560; 85025; 85610; 85730; 86140; 87015; 87040; 87070; 87075; 87116; 87205; 87206; 87801; 89050; 92523; 92526; 92610; 93005; 94664; 96365; 96375; 97116; 97161; 97167; 99285; J0692; J1940; J2270; J2470; P9046

== ENCOUNTER 2024-02-19 10:44 | Emergency (ER) | payer OTHER, SELFPAY ==
[2024-02-19] VITALS (11 sets, daily range): BP systolic 103–125; BP diastolic 63–75; PULSE 82–100; RESP 16–19; TEMP 36.6; O2SAT 95–97; BMI 18.6
--- NOTE | 2024-02-19 10:56 | XR_ITS ---
WS: [id number] Portable AP upright chest, 02/19/2024 Clinical Data: dyspnea/cough Comparison: PA chest 01/02/2024 Findings: The probable loculated right effusion and right basilar pleural scarring remains the same. There is a patchy opacity overlying the left diaphragm which may represent pneumonia, atelectasis or effusion. The heart size is normal. No pneumothorax is present. The pulmonary vascularity is not incr eased. The aortic arch shows tortuosity. XR/XR chest 1V portable [id number] Impression: 1. New patchy opacity overlying left diaphragm which may represent atelectasis, pneumonia and/or effusion. 2. Probable loculated effusion and scarring and right lower lobe shows no butler e. 3. Atherosclerosis.
--- NOTE | 2024-02-19 10:56 | ECG_ITS ---
[facility] Test Date: 2024-02-19 Pat Name: Gee Dobson Department: Room: Gender: Male Director [employer] Intelligence: : 1955 Requested By: Miguel Angel Ramirez Order Number: [id number] Reading MD: CAROLINA PATEL Measurements Intervals Bowman Rate: 86 P: 8 MO: 153 QRS: 43 QRSD: 86 T: 45 QT: 363 QTc: 436 Interpretive Statements SINUS RHYTHM LOW QRS VOLTAGE IN PRECORDIAL LEADS [QRS DEFLECTION < 1.0 mV IN CHEST LEADS] Compared to ECG 01/03/2024 01:12:13 No significant changes Electronically Signed On 02-19-2024 18:53:41 HIDE EXAMINER by CAROLINA PATEL [email or web address]
--- NOTE | 2024-02-19 11:21 | ED_ITS ---
HPI - SOB/Dyspnea 2 General: Chief Complaint: Shortness of Breath/Dyspnea Stated Complaint: SOB Time Seen by Provider: 02/19/24 10:48 History of Present Illness: HPI Narrative: 68-year-old male with a history of alcoh olic liver cirrhosis hepatitis C and COPD presents to the emergency room. Patient presents with complaints of shortness of breath distended abdomen. He states he did short of breath the last 3 days. Patient has known cirrhosis in part due to hepatitis C and alcohol. He has had previous paracentesis. Patient has some mild chest discomfort mostly with deep breaths. Associated symptoms: Deny abdominal pain, chest pain or fever(s) Related Data Home Medications Medication Instructions Recorded Confirmed pantoprazole 40 mg tablet,delayed 40 mg PO BID 10/19/20 02/19/24 release ferrous sulfate 325 mg (65 mg 325 mg PO DAILY PRN unknown 11/19/20 02/19/24 iron) tablet tamsulosin 0.4 mg capsule 0.4 mg PO BEDTIME 02/12/21 02/19/24 cilostazol 50 mg tablet 100 mg PO BID 02/19/24 02/19/24 furosemide 20 mg tablet 20 mg PO DAILY 02/19/24 02/19/24 Previous Rx's Medication Instructions Recorded spironolactone 25 mg tablet 12.5 mg (1/2 x 25 mg) PO DAILY #15 02/19/24 tabs Allergies Allergy/AdvReac Type Severity Reaction Status Date / Time No Known Allergies Allergy Verified 01/02/24 12:57 Review of Systems 2 Const: Denies: fever(s) or chills Card: Denies: chest pain Resp: Denies: dyspnea GI: Denies: abdominal pain : Denies: dysuria, urinary frequency or urinary urgency Musc: Denies: neck pain or back pain Skin/Breast: Denies: rash PFSH ED 2 PFSH: Medical History Scoliosis COPD (chronic obstructive pulmonary disease) Anemia GI bleeding Hepatitis C Liver cirrhosis Acute urinary retention Surgical History Hx of cholecystectomy History of back surgery Family History Father CAD (coronary artery disease) Social History Smoking and tobacco/nicotine status: former use of tobacco/nicotine Alcohol intake: never Marital status: Current occupational status: disabled Physical Exam 2 Const: COMMON NORMALS: no acute distress GENERAL APPEARANCE: cooperative and comfortable ORIENTATION/CONSCIOUSNESS: Yes awake, Yes oriented to person, Yes oriented to place and Yes oriented to time HENMT: COMMON NORMALS: normocephalic, atraumatic and hearing grossly normal bilaterally HEAD & SCALP: normocephalic and atraumatic Resp: COMMON NORMALS: normal respiratory effort, No retractions, No use of accessory muscles and clear to auscultation bilaterally AUSCULTATION: clear to auscultation bilaterally Cardio: COMMON NORMALS: regular rate, regular rhythm and No murmurs present (Cardio) RATE: regular rate RHYTHM: regular rhythm GI: INSPECTION: Yes abdominal distension AUSCULTATION: Yes normoactive bowel sounds PALPATION: Yes Tenderness to palpation present (GI), No Guarding due to palpation present (GI), Yes Hepatomegaly present and Yes Ascites present Extremity: COMMON NORMALS: normal to inspection, capillary refill normal, no clubbing, cyanosis or edema, no calf tenderness and no pedal edema Neuro: SENSORIUM/ORIENTATION: Yes oriented to person, Yes oriented to place and Yes oriented to time Skin: COMMON NORMALS: no rashes or lesions noted GENERAL SKIN EXAM: no rashes or lesions noted Course 2 Vital Signs: Vital signs: Vital Signs Temperature 97.8 F 02/19/24 10:58 Pulse Rate 100 02/19/24 14:48 Respiratory Rate 16 02/19/24 13:36 Blood Pressure 124/75 02/19/24 14:48 Pulse Oximetry 95 02/19/24 14:48 Oxygen Delivery Me thod Room Air 02/19/24 13:36 MDM - SOB/Dyspnea Medical Decision Making Patient's symptoms significantly improved after paracentesis he is feeling much better his breathing is better. Laboratory test reviewed. Troponins were normal and trending negative. EKG did not show acute changes. Patient would prefer to go home at this point. Discussed with him this is likely to recur. He should follow-up with his primary care or with hepatology to look at potentially having a drain placed. I suspect the area of question in the left diaphragm with atelectasis from his ascites compressing the lung. Loculated effusion on the right showed no change. His symptoms have resolved, he does not have an elevated white count. Will discharge the patient home recommend starting spironolactone 12.5 p.o. daily. Lab Data 02/19/24 14:19 02/19/24 11:40 Labs/Radiology: Radiology Impressions Chest X-Ray 02/19/24 10:56 Impression: 1. New patchy opacity overlying left diaphragm which may represent atelectasis, pneumonia and/or effusion. 2. Probable loculated effusion and scarring and right lower lobe shows no change. 3. Atherosclerosis. Paracentesis Ultrasound 02/19/24 11:25 IMPRESSION: Uncomplicated ultrasound-guided paracentesis. Removal of 3300 cc Laboratory Results WBC 8.43 10^3/uL (3.29-11.43) 02/19/24 14:19 RBC 3.37 10^6/uL (3.85-5.65) L 02/19/24 14:19 Hgb 10.00 g/dL (11.27-16.99) L 02/19/24 14:19 Hct 29.6 % (37-53) L 02/19/24 14:19 MCV 87.8 fl (82-101) 02/19/24 14:19 MCH 29.7 pg (27-33) 02/19/24 14:19 MCHC 33.8 g/dL (30-55) 02/19/24 14:19 RDW 16.0 % (12.1-15.1) H 02/19/24 14:19 Plt Count 72 10^3/cmm (157-399) L 02/19/24 14:19 MPV 9.6 fL (7.4-10.4) 02/19/24 14:19 Neut % (Auto) 91.2 % 02/19/24 14:19 Lymph % (Auto) 3.8 % 02/19/24 14:19 [place] % (Auto) 3.8 % 02/19/24 14:19 Eos % (Auto) 0.6 % 02/19/24 14:19 Baso % (Auto) 0.2 % 02/19/24 14:19 Neut # (Auto) 7.69 10^3/uL (1.8-7.7) 02/19/24 14:19 Lymph # (Auto) 0.3 10^3/uL (0.8-4.8) L 02/19/24 14:19 [place] # (Auto) 0.3 10^3/uL (0.2-0.9) 02/19/24 14:19 Eos # (Auto) 0.1 10^3/uL (0.0-0.8) 02/19/24 14:19 Baso # (Auto) 0.0 10^3/uL (0.0-0.1) 02/19/24 14:19 Nucleated RBC % (auto) 0 % 02/19/24 14:19 Nucleated RBCs # 0.0 /100WBC 02/19/24 14:19 PT 17.10 SECONDS (12.1-14.9) H 02/19/24 14:19 INR 1.35 (0.8-1.2) H 02/19/24 14:19 APTT 41.4 SECONDS (23.9-36.7) H 02/19/24 14:19 Specimen Type Arterial 02/19/24 12:17 Sample Site Radial, right 02/19/24 12:17 ABG pH 7.47 (7.35-7.45) H 02/19/24 12:17 ABG pCO2 36.4 mmHg (35-45) 02/19/24 12:17 ABG pO2 67.5 mmHg (80.0-100.0) L 02/19/24 12:17 ABG PO2/FiO2 Ratio 321 02/19/24 12:17 ABG HCO3 26.3 mmol/L (22-26) H 02/19/24 12:17 ABG O2 Saturation 95.4 02/19/24 12:17 ABG Base Excess 2.5 mmol/L (-2.0-2.0) H 02/19/24 12:17 Ash Test Pos 02/19/24 12:17 A-a O2 Gradient 4.7 mmHg (5-10) L 02/19/24 12:17 Hematocrit 30.8 % (42-52) L 02/19/24 12:17 Hgb O2 Saturation 92.3 % (95-100) L 02/19/24 12:17 Carboxyhemoglobin 2.3 %THgb (0.4-20.1) 02/19/24 12:17 Methemoglobin 1.0 % (0.4-1.5) 02/19/24 12:17 Total Hemoglobin 10.1 g/dL (14-18) L 02/19/24 12:17 Sodium 133.0 mmol/L (131-143) 02/19/24 12:17 Potassium 3.5 mmol/L (3.5-5.0) 02/19/24 12:17 Glucose 97.0 mg/dL (70-115) 02/19/24 12:17 Ionized Calcium 1.1 mmol/L (1.1-1.4) 02/19/24 12:17 O2 Delivery Device Room air 02/19/24 12:17 FiO2 21.0 % 02/19/24 12:17 Ground Support Equipment Assembler ID [id number] 02/19/24 12:17 Sodium 131 mmol/L (136-145) L 02/19/24 11:40 Potassium 3.8 mmol/L (3.5-5.1) 02/19/24 11:40 Chloride 98 mmol/L (98-107) 02/19/24 11:40 Carbon Dioxide 24 mmol/L (22-29) 02/19/24 11:40 Anion Gap 12.8 (5-19) 02/19/24 11:40 BUN 18 mg/dL (8-23) 02/19/24 11:40 Creatinine 0.8 mg/dL (0.7-1.2) 02/19/24 11:40 GFR Calculation 95.8 mL/min (90-130) 02/19/24 11:40 Glucose 98 mg/dL (65-115) 02/19/24 11:40 Calculated Osmolality 274 mOsm/kg (285-295) L 02/19/24 11:40 Calcium 7.9 mg/dL (8.5-10.5) L 02/19/24 11:40 Total Bilirubin 0.8 mg/dL (0.15-1.2) 02/19/24 11:40 AST 21 U/L (0-40) 02/19/24 11:40 ALT 10 U/L (0-41) 02/19/24 11:40 Alkaline Phosphatase 109 U/L (40-130) 02/19/24 11:40 Ammonia 72 umol/L (16-60) H 02/19/24 12:01 Troponin T Baseline 10 ng/L (0-15) 02/19/24 11:40 Troponin T 120 Minute 8.13 ng/L (0-15) 02/19/24 14:19 Delta Troponin T -1.87 ABS# (0-10) L 02/19/24 14:19 Total Protein 5.9 g/dL (6.6-8.7) L 02/19/24 11:40 Albumin 2.8 g/dL (3.5-5.2) L 02/19/24 11:40 Globulin 3.1 g/dL (1.3-4.6) 02/19/24 11:40 Coronavirus (PCR) Negative (Negative) 02/19/24 11:18 Influenza A (PCR) Negative (Negative) 02/19/24 11:18 Influenza Type B (PCR) Negative (Negative) 02/19/24 11:18 RSV (PCR) Negative (Negative) 02/19/24 11:18 All radiology interpretation(s) finalized by discharge Discharge Plan Discharge Patient Disposition: Home Clinical Impression: Hepatitis C, Abdominal ascites Liver cirrhosis Qualifiers: Hepatic cirrhosis type: other cirrhosis Qualified Code(s): K74.69 - Other cirrhosis of liver Condition: Stable Prescriptions: New spironolactone 25 mg tablet 12.5 mg PO DAILY Qty: 15 0RF No Action ferrous sulfate 325 mg (65 mg iron) tablet 325 mg PO DAILY PRN (Reason: unknown) pantoprazole 40 mg tablet,delayed release (DR/EC) 40 mg PO BID tamsulosin 0.4 mg capsule 0.4 mg PO BEDTIME cilostazol 50 mg Tablet 100 mg PO BID furosemide 20 mg tablet 20 mg PO DAILY Discharge Orders: Discharge ED (Routine); Ordered 02/19/24 Ordered By: Miguel Angel Westbrook Referrals: Veronica Bassett MD [Primary Care Provider] - Discharge Activity: Increase activity as tolerated Patient Instructions: Cirrhosis of the Liver (ED), Ascites (ED), Opioid Safety, Pain Management Activity Restrictions/Additional Instructions: Thank you for choosing [facility] for your healthcare needs today. It is very important that you follow up as instructed or that you return to the Emergency Department should you have concerns or if your condition changes or worsens in any way. You were seen in the emergency room with complaints of shortness of breath after removing the fluid from your abdomen your symptoms improved. The fluid is due to liver cirrhosis from your hepatitis C. Follow-up with your primary care doctor this fluid is likely to recur you may need to see a liver specialist for long-term management. In the interim recommend that you start spironolactone 12.5 mg once a day. Coding Level of Care Code ED Commodity Lead for Eliseo Johns
--- NOTE | 2024-02-19 11:25 | US_ITS ---
WS: [id number] ULTRASOUND-GUIDED PARACENTESIS CLINICAL INFORMATION: ascites COMPARISON: None. Procedure Informed consent: The risks, benefits, and alternatives of the procedure were discussed with the mario ent. Verbal and written consent was obtained. Timeout: A timeout was performed to confirm the correct patient, procedure, and site. Preparation: A suitable skin site was identified. The patient was prepped and draped in usual sterile fashion. Lidocaine 1% was used for local anesthesia. Catheter: 4 M[place]ese One-step Yueh catheter. Side: LEFT lower quadrant. Fluid Volume: 3300 ml Color: Clear yellow DISPOSITION: Discarded safely. Complications: None. US/US paracentesis abd w [id number] IMPRESSION: Uncomplicated ultrasound-guided paracentesis. Removal of 3300 cc
--- NOTE | 2024-02-19 11:27 | PC.PHAR ---
[facility] at 11:01am. Still waiting on that at this time, we have nothing in the chart to go off of either, patient unsure as well
[2024-02-19] MEDS: dexamethasone 10 mg/mL INJ IM (11:53)
[2024-02-19] MEDS: ipratropium-albuterol 3 mL Neb INHALATION (12:07)
[2024-02-19 12:16] LABS: Troponin(5th) Baseline 10 ng/L (0-15)
[2024-02-19 12:26] LABS: ABG PCO2 36.4 mmHg (35-45); ABG PH Result 7.47 (7.35-7.45); Alveolar-Arterial Oxygen Gradi 4.7 mmHg (5-10); Arterial Blood Gas Hematocrit 30.8 % (42-52); Base Excess ABG 2.5 mmol/L (-2.0-2.0); Blood Gas Allen Test Pos; Blood Gas Operator Identificat YPC; Blood Gas Sample Site Radial, right; Blood Gas Sample Type Arterial; Carboxyhemoglobin 2.3 %THgb (0.4-20.1); HCO3 ABG 26.3 mmol/L (22-26); HGB O2 Sat 92.3 % (95-100); Ionized Calcium Level - ABG 1.1 mmol/L (1.1-1.4); Oxygen Device ROOM AIR; Oxygen Saturation ABG 95.4; PO2 ABG 67.5 mmHg (80.0-100.0); PO2 FiO2 Ratio Arterial Blood 321; Potassium Level - ABG 3.5 mmol/L (3.5-5.0); Total Hemoglobin 10.1 g/dL (14-18)
[2024-02-19 12:28] LABS: Alanine Aminotransferase 10 U/L (0-41); Albumin Level 2.8 g/dL (3.5-5.2); Alkaline Phosphatase 109 U/L (40-130); Anion Gap 12.8 (5-19); Aspartate Amino Transferase 21 U/L (0-40); Blood Urea Nitrogen 18 mg/dL (8-23); Calcium 7.9 mg/dL (8.5-10.5); Carbon Dioxide 24 mmol/L (22-29); Chloride 98 mmol/L (98-107); Globulin 3.1 g/dL (1.3-4.6); Glomerular Filtration Rate 95.8 mL/min (90-130); Glucose 98 mg/dL (65-115); Osmolality Calculated 274 mOsm/kg (285-295); Potassium 3.8 mmol/L (3.5-5.1); Sodium 131 mmol/L (136-145); Total Bilirubin 0.8 mg/dL (0.15-1.2); Total Protein 5.9 g/dL (6.6-8.7)
[2024-02-19 12:29] LABS: Ammonia 72 umol/L (16-60)
[2024-02-19 12:49] LABS: Covid PCR NEGATIVE (Negative); Influenza A NEGATIVE (Negative); Influenza B NEGATIVE (Negative); Respiratory Syncytial Virus Ce NEGATIVE (Negative)
--- NOTE | 2024-02-19 12:56 | ECG_ITS ---
FilesX Test Date: 2024-02-19 Pat Name: Gee Dobson Department: Room: Gender: Male Valve Inspector: : 1955 Requested By: Miguel Angel Ramirez Order Number: [id number] Reading MD: CAROLINA PATEL Measurements Intervals [place] Rate: 85 P: 20 MT: 155 QRS: 39 QRSD: 89 T: 29 QT: 378 QTc: 451 Interpretive Statements SINUS RHYTHM LOW QRS VOLTAGE IN PRECORDIAL LEADS [QRS DEFLECTION < 1.0 mV IN CHEST LEADS] Compared to ECG 02/19/2024 10:54:00 No significant changes Electronically Signed On 02-19-2024 19:28:57 MAGAZINE GRINDER LOADER by CAROLINA PATEL [email or web address]
--- NOTE | 2024-02-19 13:15 | PC.NURSE ---
PARACENTESIS COMPLETE. 3500 ML OUT.
[2024-02-19 14:26] LABS: Basophils % 0.2 %; Eosinophils # 0.1 10^3/uL (0.0-0.8); Eosinophils % 0.6 %; Hematocrit 29.6 % (37-53); Lymphocytes # 0.3 10^3/uL (0.8-4.8); Lymphocytes % 3.8 %; Mean Corpuscular HGB Conc 33.8 g/dL (30-55); Mean Corpuscular Hemoglobin 29.7 pg (27-33); Mean Corpuscular Volume 87.8 fl (82-101); Mean Platelet Volume 9.6 fL (7.4-10.4); Monocytes # 0.3 10^3/uL (0.2-0.9); Monocytes % 3.8 %; Neutrophils # 7.69 10^3/uL (1.8-7.7); Neutrophils % 91.2 %; Nucleated Red Blood Cells % 0 %; Platelet Count 72 10^3/cmm (157-399); Red Blood Count 3.37 10^6/uL (3.85-5.65); White Blood Count 8.43 10^3/uL (3.29-11.43)
[2024-02-19 14:40] LABS: INR 1.35 (0.8-1.2)
[2024-02-19 14:41] LABS: Partial Thromboplastin Time 41.4 SECONDS (23.9-36.7)
[2024-02-19 14:45] LABS: Troponin 5 2HR 8.13 ng/L (0-15); Troponin 5 2HR Delta -1.87 ABS# (0-10)
--- NOTE | 2024-02-19 14:50 | PC.NURSE ---
PATIENT USED SUCTION TUBING AND 4 SUCTION CANNISTERS WITH LID FOR PROCEDURE.
== END 2024-02-19 14:57 | disposition home or self-care (01) ==
PROVIDERS: Emergency Provider Family Medicine; PCP Family Medicine
DX: K70.31 Alcoholic cirrhosis of liver with ascites (principal); B19.20 Unspecified viral hepatitis C without hepatic coma; Z11.52 Encounter for screening for COVID-19; Z87.891 Personal history of nicotine dependence; J44.9 Chronic obstructive pulmonary disease, unspecified
CPT/HCPCS: 0241U; 36415; 36600; 49083; 71045; 80051; 80053; 82140; 82330; 82805; 84484; 85025; 85610; 85730; 93005; 94640; 96372; 99285; 99291; J1100